=== PATIENT | male | born 1945 | race Caucasian/White ===

== ENCOUNTER → 2016-06-08 | Outpatient (CLI) | payer MEDICARE ==
[~2016-06-08] MED LIST: ALENDRONATE PO; ASP81TEC PO; CALC-731 PO; CATHETER FLUSH 10 ML SYR IV PRN; DIGO250T PO; DILT120T11 PO; DILT240C PO; GLUC500C2 PO; LISI1TAB PO; OMEG1CAP51 PO; OMEP20TA2 PO; POTA10CA43 PO; PRAV80TA2 PO; PRV20T PO; REGADENOSON 0.4 MG/5 ML SYR (LEXISCAN) IV ONE; WRF10T PO; WRF5T PO; [UNRECOGNIZED DRUG - CODE] PO; [UNRECOGNIZED DRUG - OTHER] OU; meTOprolol 5 MG/5 ML (LOPRESSOR) VIAL IV ONE; meTOprolol 5 MG/5 ML (LOPRESSOR) VIAL ONE
[2016-06-08 13:01] VITALS: BP 127/90
[2016-06-08 13:19] VITALS: BP 156/114
[2016-06-08 13:21] VITALS: BP 129/85
--- NOTE | 2016-06-09 10:17 | STRESS TEST ---
DATE OF SERVICE: RESTING AND POST REGADENOSON TECHNETIUM-99M TETROFOSMIN SPECT CT IMAGING DATE OF PROCEDURE: 06/08/2016. ORDERING PHYSICIAN: Dr. Vilchis. PRIMARY PHYSICIAN: Dr. Cruz. CLINICAL DIAGNOSES: Coronary artery disease, atrial fibrillation. Baseline images were carried out after injection of 10.21 mCi of technetium-99m tetrofosmin. This was followed by 0.4 mg of regadenoson and 28.9 mCi of technetium-99m tetrofosmin for stress imaging. The electrocardiogram showed atrial fibrillation with a somewhat rapid ventricular response throughout the study. He noted mild shortness of breath following regadenoson infusion, which resolved in a few minutes. Overall, he tolerated the procedure well. Review of images addressed following stress does not indicate any distant perfusion defects consistent with significant myocardial ischemia or infarction. Gated images show mild global hypokinesis. Left ventricular ejection fraction is calculated to be 41%. Left ventricular end-diastolic volume is 56 mL. CONCLUSIONS: 1. No evidence of any significant myocardial ischemia or infarction on the study. 2. Normal left ventricular cavity size. 3. Mild global hypokinesis. 4. Left ventricular ejection fraction is calculated to be 41%. 5. The patient was in atrial fibrillation with a somewhat rapid ventricular response throughout the study. Job ID: [id number] DocumentID: [id number] Dictated Date: 06/09/2016 09:02:01 Child Therapist Date: 06/09/2016 09:26:22 Dictated By: ANTHONY VILCHIS MD, MA, FACP, FACC,
== END ==
LOC: CARD 10:59
PROVIDERS: ATTEND Internal Medicine Cardiovascular Disease
DX: I25.10 Atherosclerotic heart disease of native coronary artery without angina pectoris (principal); I48.2 Chronic atrial fibrillation; I10 Essential (primary) hypertension; I65.23 Occlusion and stenosis of bilateral carotid arteries
CPT/HCPCS: 78452; 93017

== ENCOUNTER → 2016-10-01 | Outpatient (CLI) | payer MEDICARE ==
[~2016-10-01] MED LIST changes: -CATHETER FLUSH 10 ML SYR IV PRN; -REGADENOSON 0.4 MG/5 ML SYR (LEXISCAN) IV ONE; -meTOprolol 5 MG/5 ML (LOPRESSOR) VIAL IV ONE; -meTOprolol 5 MG/5 ML (LOPRESSOR) VIAL ONE
== END ==
LOC: CARD 11:20
PROVIDERS: ATTEND Internal Medicine Cardiovascular Disease
DX: I48.2 Chronic atrial fibrillation (principal); I42.0 Dilated cardiomyopathy; I25.10 Atherosclerotic heart disease of native coronary artery without angina pectoris; I65.23 Occlusion and stenosis of bilateral carotid arteries; I10 Essential (primary) hypertension
CPT/HCPCS: 93306

== ENCOUNTER → 2017-09-20 | Outpatient (RCR) | payer MEDICARE, OTHER | END | disposition home or self-care (01) | LOC: CARD 12:25 | PROVIDERS: ATTEND Internal Medicine Interventional Cardiology | DX: I48.2 Chronic atrial fibrillation (principal); R42 Dizziness and giddiness | CPT/HCPCS: 93225; 93226 ==

== ENCOUNTER 2017-10-17 13:30 | Outpatient (RCR) | payer MEDICARE, OTHER | END 2017-10-21 | disposition home or self-care (01) | LOC: CARD 13:30 | PROVIDERS: ATTEND Internal Medicine Interventional Cardiology | DX: I48.2 Chronic atrial fibrillation (principal); R42 Dizziness and giddiness | CPT/HCPCS: 93270 ==

== ENCOUNTER 2017-11-08 08:14 | Day surgery (SDC) | payer MEDICARE ==
[~2017-11-08] VITALS: Ht 177.8 cm; Wt 98.9 kg
--- OUTSIDE RECORDS SUMMARY | 2017-11-08 08:18 | XMS REPORT | CCD ---
Author Author BETTIE BARAHONA Unknown Address [address] [facility] [address] [place], [place] [id number] Care Team Providers Care Cash Register Servicer Name Role Phone JEFFREY HOSPITALISTJUSTEN MD Attphys JUNO BOURNE, TIKI Savage Prisurg S., BRITTA Salomon NASST F., MARIO NASST R., KAE Alexandra NASST B., CESILIA NASST S., ANITRA NASST C., CARLOS Claudio NASST M., RALPH NASST S., JIMENA NASST L., JAYSHREE Garcia NASST S., VALERIA NASST A., SONAL NASST K., JUSTEN NASST S., MIKE Jessica NASST Vital Signs Vital Sign Value Unit Date/Time Recent/Initial? Weight Measured 234.4 lbs 08/18/2015 04:38 Initial VS Height 70 in 08/18/2015 04:38 Initial VS BMI (Body Mass Index) 33.63 kg/m^2 08/18/2015 04:38 Initial VS BSA (Body Surface Area) 2.29 m^2 08/18/2015 04:38 Initial VS BP Systolic 126 mmHg 08/18/2015 04:38 Initial VS BP Diastolic 76 mmHg 08/18/2015 04:38 Initial VS Respiratory Rate 16 bpm 08/18/2015 04:38 Initial VS Heart Rate 107 bpm 08/18/2015 04:38 Initial VS O2 % BldC Oximetry 100 % 08/18/2015 04:38 Initial VS Body Temperature 96.3 degrees 08/18/2015 04:38 Initial VS BP Systolic 167 mmHg 08/20/2015 10:45 Most Recent VS BP Diastolic 86 mmHg 08/20/2015 10:45 Most Recent VS Respiratory Rate 18 bpm 08/20/2015 10:45 Most Recent VS Heart Rate 87 bpm 08/20/2015 10:45 Most Recent VS O2 % BldC Oximetry 96 % 08/20/2015 10:45 Most Recent VS Body Temperature 98.6 degrees 08/20/2015 10:45 Most Recent VS Allergies Unknown or Not Available. Procedures Procedure Code Procedure Type Date OT ADL TRAINING/POSITIONING EA 15MIN 752295352 SNOMED CT 08/20/2015 PT THERAPEUTIC EXERCISES [address] 2015 PT SOFT TISSUE MOBILIZATION-[address] PT THERAPEUTIC ACT. ONE ON ONE EA [address] 08/19/2015 PT EVALUATION 604143799 SNOMED CT 08/19/2015 PT THERAPEUTIC EXERCISES [address] 2015 PT GAIT TRAINING/STAIRS EA [address] 08/18 OT ADL TRAINING/POSITIONING EA 15MIN 939839566 SNOMED CT 08/19/2015 OT EVALUATION 029993588 SNOMED CT 08/19/2015 CX CHEST [address] 08/18/2015 KNEE [address] 08/17/[address] 08/20/2015 RENAL FUNCTION PANEL 430058014 SNOMED CT 08/20/2015 CBC W/ AUTO DIFF (RFLX MAN DIFF IF IND) 3621478 SNOMED CT 08/20/[address] 08/19/2015 BASIC METABOLIC PANEL 412947421 SNOMED CT 08/19/2015 CBC W/ AUTO DIFF (RFLX MAN DIFF IF IND) 5540143 SNOMED CT 08/19/[address] 08/18/[address] 08/18/2015 LACTIC ACID 8995707 SNOMED CT 08/18/2015 TROPONIN-I ADV 255325377 SNOMED CT 08/18/2015 COMPREHENSIVE METABOLIC PANEL 647876788 SNOMED CT 2015 CBC W/ AUTO DIFF (RFLX MAN DIFF IF IND) 7005496 SNOMED CT 08/18/[address] 08/18/2015 ^CBC W/AUTO DIFF 8345842 SNOMED CT 08/20/2015 ^CBC W/AUTO DIFF 7549324 SNOMED CT 08/19/2015 ^CBC W/AUTO DIFF 9581356 SNOMED CT 08/18/2015 History of Immunizations Immunization Code Date Td (adult), adsorbed 09 05/05/2006 Td (adult), adsorbed 09 12/04/2012 IPV 10 05/09/2006 influenza, split (incl. purified surface antigen) 15 02/08/2003 influenza, split (incl. 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 Chronic atrial fibrillation 314671570 08/18/2015 Active Results BASIC METABOLIC PANEL - Collect Date/Time: 08/19/2015 06:40 Test Name Code Test Result Test Units Test Ref Range GLUCOSE 2345-7 98 MG/DL L=70 H=100 SODIUM 2951-2 140 MEQ/L L=135 H=148 POTASSIUM 2823-3 3.8 MEQ/L L=3.5 H=5.3 CHLORIDE 2075-0 108 MEQ/L L=96 H=110 CO2 2028-9 25 MEQ/L L=22 H=29 BUN 3094-0 12 MG/DL L=8 H=22 CREATININE 2160-0 0.9 MG/DL L=0.6 H=1.6 CALCIUM 09611-5 8.3 MG/DL L=8.2 H=10.6 AGE 70 yrs GFR NonAA 83 GFR AA 101 eGFR >60 N/A eGFR AA* >60 N/A COMPREHENSIVE METABOLIC PANEL - Collect Date/Time: 08/18/2015 00:15 Test Name Code Test Result Test Units Test Ref Range GLUCOSE 2345-7 100 MG/DL L=70 H=100 SODIUM 2951-2 138 MEQ/L L=135 H=148 POTASSIUM 2823-3 4.3 MEQ/L L=3.5 H=5.3 CHLORIDE 2075-0 104 MEQ/L L=96 H=110 CO2 2028-9 22 MEQ/L L=22 H=29 BUN 3094-0 14 MG/DL L=8 H=22 CREATININE 2160-0 1.0 MG/DL L=0.6 H=1.6 SGOT/AST 1920-8 16 IU/L L=10 H=40 SGPT/ALT 1742-6 23 IU/L L=8 H=54 ALK PHOS 6768-6 64 IU/L L=35 H=115 TOTAL PROTEIN 2885-2 6.0 G/DL L=5.5 H=8.5 ALBUMIN 1751-7 4.2 G/DL L=3.1 H=5.4 TOTAL BILI 1975-2 1.0 MG/DL L=0.0 H=1.5 CALCIUM 12359-5 9.1 MG/DL L=8.2 H=10.6 AGE 70 yrs GFR NonAA 73 GFR AA 88 eGFR >60 N/A eGFR AA* >60 N/A CPK - Collect Date/Time: 08/18/2015 17:20 Test Name Code Test Result Test Units Test Ref Range CPK 2157-6 195 IU/L L=0 H=235 RENAL FUNCTION PANEL - Collect Date/Time: 08/20/2015 06:20 Test Name Code Test Result Test Units Test Ref Range GLUCOSE 2345-7 95 MG/DL L=70 H=100 SODIUM 2951-2 138 MEQ/L L=135 H=148 POTASSIUM 2823-3 4.2 MEQ/L L=3.5 H=5.3 CHLORIDE 2075-0 104 MEQ/L L=96 H=110 CO2 2028-9 25 MEQ/L L=22 H=29 BUN 3094-0 11 MG/DL L=8 H=22 CREATININE 2160-0 0.9 MG/DL L=0.6 H=1.6 ALBUMIN 1751-7 3.6 G/DL L=3.1 H=5.4 CALCIUM 32523-7 9.0 MG/DL L=8.2 H=10.6 PHOSPHORUS 2777-1 3.6 MG/DL L=2.5 H=4.5 AGE 70 yrs GFR NonAA 83 GFR AA 101 eGFR >60 N/A eGFR AA* >60 N/A CBC W/ AUTO DIFF (RFLX MAN DIFF IF IND) - Collect Date/Time: 08/20/2015 06:20 Test Name Code Test Result Test Units Test Ref Range WBC 62807-4 8.7 TH/CMM L=4.5 H=10.8 RBC 789-8 3.92 ML/CMM L=4.70 H=6.10 HGB 718-7 11.8 G/DL L=14.0 H=18.0 HCT 4544-3 37.1 % L=42.0 H=52.0 MCV 95 FL L=81 H=99 MCH 30.1 PG L=27.0 H=33.0 MCHC 31.8 G/DL L=31.0 H=36.0 RDW SD 48 FL L=36 H=50 RDW CV 13.9 % L=0.0 H=14.8 MPV 10.8 FL L=9.3 H=12.5 PLT 777-3 146 TH/CMM L=130 H=440 NRBC# 0.00 TH/CMM L=0.00 H=0.00 NRBC% 0.0 /100WBC L=0.0 H=2.0 %NEUT 70.6 % %LYMP 19.7 % %MONO 7.7 % %EOS 1.4 % %BASO 0.3 % #NEUT 6.15 TH/CMM L=2.10 H=8.20 #LYMP 1.72 TH/CMM L=0.90 H=5.20 #MONO 0.67 TH/CMM L=0.16 H=1.00 #EOS 0.12 TH/CMM L=0.00 H=0.80 #BASO 0.03 TH/CMM L=0.00 H=0.20 MANUAL DIFF NOT IND N/A CBC W/ AUTO DIFF (RFLX MAN DIFF IF IND) - Collect Date/Time: 08/19/2015 06:40 Test Name Code Test Result Test Units Test Ref Range WBC 31648-0 10.8 TH/CMM L=4.5 H=10.8 RBC 789-8 3.88 ML/CMM L=4.70 H=6.10 HGB 718-7 11.9 G/DL L=14.0 H=18.0 HCT 4544-3 37.1 % L=42.0 H=52.0 MCV 96 FL L=81 H=99 MCH 30.7 PG L=27.0 H=33.0 MCHC 32.1 G/DL L=31.0 H=36.0 RDW SD 48 FL L=36 H=50 RDW CV 13.9 % L=0.0 H=14.8 MPV 11.4 FL L=9.3 H=12.5 PLT 777-3 142 TH/CMM L=130 H=440 NRBC# 0.00 TH/CMM L=0.00 H=0.00 NRBC% 0.0 /100WBC L=0.0 H=2.0 %NEUT 77.3 % %LYMP 13.9 % %MONO 7.2 % %EOS 0.9 % %BASO 0.3 % #NEUT 8.33 TH/CMM L=2.10 H=8.20 #LYMP 1.50 TH/CMM L=0.90 H=5.20 #MONO 0.78 TH/CMM L=0.16 H=1.00 #EOS 0.10 TH/CMM L=0.00 H=0.80 #BASO 0.03 TH/CMM L=0.00 H=0.20 MANUAL DIFF NOT IND N/A CBC W/ AUTO DIFF (RFLX MAN DIFF IF IND) - Collect Date/Time: 08/18/2015 00:15 Test Name Code Test Result Test Units Test Ref Range WBC 69249-5 11.3 TH/CMM L=4.5 H=10.8 RBC 789-8 4.81 ML/CMM L=4.70 H=6.10 HGB 718-7 14.7 G/DL L=14.0 H=18.0 HCT 4544-3 45.1 % L=42.0 H=52.0 MCV 94 FL L=81 H=99 MCH 30.6 PG L=27.0 H=33.0 MCHC 32.6 G/DL L=31.0 H=36.0 RDW SD 46 FL L=36 H=50 RDW CV 13.6 % L=0.0 H=14.8 MPV 11.1 FL L=9.3 H=12.5 PLT 777-3 164 TH/CMM L=130 H=440 NRBC# 0.00 TH/CMM L=0.00 H=0.00 NRBC% 0.0 /100WBC L=0.0 H=2.0 %NEUT 75.6 % %LYMP 16.9 % %MONO 6.0 % %EOS 0.7 % %BASO 0.4 % #NEUT 8.50 TH/CMM L=2.10 H=8.20 #LYMP 1.90 TH/CMM L=0.90 H=5.20 #MONO 0.68 TH/CMM L=0.16 H=1.00 #EOS 0.08 TH/CMM L=0.00 H=0.80 #BASO 0.05 TH/CMM L=0.00 H=0.20 MANUAL DIFF NOT IND N/A PROTIME - Collect Date/Time: 08/20/2015 06:20 Test Name Code Test Result Test Units Test Ref Range PROTIME 81148-7 11.3 SEC L=9.9 H=11.9 INR 1.0 PROTIME - Collect Date/Time: 08/19/2015 06:40 Test Name Code Test Result Test Units Test Ref Range PROTIME 04888-7 16.7 SEC L=9.9 H=11.9 INR 1.5 PROTIME - Collect Date/Time: 08/18/2015 00:15 Test Name Code Test Result Test Units Test Ref Range PROTIME 60408-5 51.0 SEC L=9.9 H=11.9 INR 4.6 BNP - Collect Date/Time: 08/18/2015 00:15 Test Name Code Test Result Test Units Test Ref Range BNP 09521-6 89 PG/ML L=0 H=100 TROPONIN-I ADV - Collect Date/Time: 08/18/2015 03:55 Test Name Code Test Result Test Units [place] [address]-9 <0.04 ng/mL L=0.04 H= 0.40 LACTIC ACID - Collect Date/Time: 08/18/2015 03:55 Test Name Code Test Result Test Units Test Ref Range LACTIC ACID 2524-7 2.2 mmol/L L=0.5 H=1.6 Active Medications Medications Administered During Visit Medication Dose Units Frequency Route Date/ Time of Last Dose OMEGA-3 FATTY ACIDS [FISH OIL] CAP 1000 MG TID PO 08/20/2015 07:55 TIMOLOL [TIMOPTIC] 0.5% OPHTH SOLN 1 BOTTLE BID BOTHEYES 08/20/2015 07:26 ASPIRIN [CHEWABLE] TAB : 81MG 81 MG DAILYM PO 08/18/2015 08:33 ATORVASTATIN [LIPITOR] TABLET : 20 MG 40 MG HS PO 08/19/2015 20:42 PANTOPRAZOLE [PROTONIX] TABLET : 40 MG 40 MG DAILY PO 08/20/2015 07:55 NS 1000 ML IV [PREDEFINED] (7983) CONT IV 08/18/2015 08:04 NORCO [HYDROCODONE/APAP] 5/325MG TAB 1 TAB PRN PO 08/19/2015 13:55 DILTIAZEM ER [CARDIZEM CD] CAP : 180 MG 360 MG DAILY PO 08/20/2015 07:55 PHYTONADIONE [VITAMIN K] TAB : 5 MG 5 MG X1 PO 08/18/2015 17:57 SHERRI-COLACE (NEW FORMULATION) TABLET 2 TAB BID PO 08/20/2015 07:55 WARFARIN [COUMADIN] TAB : 5 MG (PEACH) 2 TAB COUMADIN PO 08/19/2015 17:07 NORCO [HYDROCODONE/APAP] 5/325MG TAB 2 TAB PRN PO 08/20/2015 07:58 Encounters Encounter Diagnosis Diagnosis Code Start Date Orthostatic hypotension I951 08/18/2015 Social History Smoking Status Code Start Date End Date Never smoker [id number] Patient Decision Aids Unknown or Not Available. Discharge Instructions You were admitted to [facility] on 08/18/2015 03:59 with a principal diagnosis of Orthostatic hypotension You had the following tests done: BASIC METABOLIC PANEL BNP CBC W/ AUTO DIFF (RFLX MAN DIFF IF IND) CBC W/ AUTO DIFF (RFLX MAN DIFF IF IND) CBC W/ AUTO DIFF (RFLX MAN DIFF IF IND) COMPREHENSIVE METABOLIC PANEL CPK LACTIC ACID PROTIME PROTIME PROTIME RENAL FUNCTION PANEL TROPONIN-I ADV You were discharged from [facility] on 08/20/2015 13:50 Should you have any questions prior to discharge, please contact a member of your healthcare team. If you have left the hospital and have any questions, please contact your primary care physician. FOLLOW UP CARE - SEE YOUR PHYSICIAN: SEE DR. HAMPTON ON AT 11:[address] HUYNH ON 08/27/15 AT 10:00 PRIMARY CARE PHYSICIAN OR PRACTITIONER: John Huynh MD, [phone]. INSTRUCTIONS GIVEN BY (TYPE IN NAME AND DATE) HAM HUGHES RN INSTRUCTIONS GIVEN AND DISCHARGE TO: Patient. VOICES UNDERSTANDING OF INSTRUCTIONS: Yes. CONTACT PHYSICIAN IF YOU EXPERIENCE ANY: SHORTNESS OF AIR, CHEST PAIN, FEVER, COUGH, ALTERED MENTAL STATUS, INCREASED LEG PAIN/ SWELLING ACTIVITY INSTRUCTIONS(list limitations): UP WITH WALKER. HOME DIET: Regular. CONDITION AT DISMISSAL Stable. HOME MEDICATION INSTRUCTIONS: Take only the medications listed above.. HOME MEDS RETURNED TO PATIENT: N/A. FOLLOW-UP OUTPATIENT SERVICES: INDEPENDENT STRIDES TO FOLLOW PT AT HOME. PT TO HAVE INR ON 08/22/15. 08/26/15, 08/29/15 THEN PER CARDIOLOGY. SPECIAL INSTRUCTIONS: ICE TO LEG MUCH POSSIBLE. CHIEF COMPLAINT: LEFT KNEE PAIN. PT. COULD NO LONGER BARE WEIGHT. Chief Complaint and Reason For Visit Chief Complaint Date of Onset ORTHOSTATIC HYPOTENSION Function Status Unknown or Not Available. Plan of Care Unknown or Not Available. Referral/Transition of Care Unknown or Not Available.
--- OUTSIDE RECORDS SUMMARY | 2017-11-08 08:18 | XMS REPORT | CCD ---
Author Author JO ANN RUIZ Organization Unknown Address [address] [facility] [address] [place], [place] [id number] Care Team Providers Care Blueprint Machine Operator Name Role Phone GERARDO SILVA DO Attphys Vital Signs Vital Sign Value Unit Date/Time Recent/Initial? Weight Measured 222 lbs 04/14/2015 13:43 Initial VS Height 70 in 04/14/2015 13:43 Initial VS BMI (Body Mass Index) 31.85 kg/m^2 04/14/2015 13:43 Initial VS BSA (Body Surface Area) 2.23 m^2 04/14/2015 13:43 Initial VS Allergies Allergy Code Allergy Type Reaction Status No Known Drug Allergies 0 No known drug allergies Active Procedures Procedure Code Procedure Type Date Colonscopy not high risk ind G0121 CPT 04/21/[address] 04/21/2015 History of Immunizations Immunization Code Date Td (adult), adsorbed 09 05/05/2006 Td (adult), adsorbed 09 12/04/2012 IPV 10 05/09/2006 influenza, split (incl. purified surface antigen) 15 02/08/2003 influenza, split (incl. purified surface antigen) 15 11/29/2006 Hep A, adult 52 05/05/2006 Hep A, adult 52 11/07/2006 typhoid, ViCPs 101 05/09/2006 Novel [id number] 127 03/13/2009 Pneumococcal conjugate PCV 13 133 11/21/2013 Problems Unknown or Not Available. Results PROTIME - Collect Date/Time: 04/21/2015 06:45 Test Name Code Test Result Test Units Test Ref Range PROTIME 34908-1 14.1 SEC L=9.9 H=11.9 INR 1.3 Active Medications No Active Medications Medications Administered During Visit Unknown or Not Available. Encounters Encounter Diagnosis Diagnosis Code Start Date Personal history of colonic polyps V44387 04/21/2015 Social History Smoking Status Code Start Date End Date Never smoker [id number] Patient Decision Aids Patient Decision Aid EGD AND/OR COLONOSCOPY; AFTER THE PROCEDURE Discharge Instructions You were admitted to [facility] on 04/21/2015 with a principal diagnosis of Personal history of colonic polyps. You had the following procedures done: COLON CA SCRN NOT HI RSK IND You were discharged from [facility] on 04/21/2015. Should you have any questions prior to discharge, please contact a member of your healthcare team. If you have left the hospital and have any questions, please contact your primary care physician. Chief Complaint and Reason For Visit Chief Complaint Date of Onset GEN COLONOSCOPY Function Status Unknown or Not Available. Plan of Care Unknown or Not Available. Referral/Transition of Care Unknown or Not Available.
[2017-11-08] MEDS ORDERED: LIDOCAINE 1% INJ 20 ML 20 ML VIAL ONE (08:19)
--- OUTSIDE RECORDS SUMMARY | 2017-11-08 08:19 | XMS REPORT | CCD ---
Author Author MARISSA BANDA Organization Unknown Address [address] [facility] [address] [place], [place] [id number] Care Team Providers Care Deputy Chief Sheriff Name Role Phone JUNO BOURNE, TIKI Savage Attphys JACOB MCNAIR DO Prisurg Vital Signs Unknown or Not Available. Allergies Allergy Code Allergy Type Reaction Status MORPHINE 7052 Drug allergy Active Procedures Unknown or Not Available. History of Immunizations Immunization Code Date Td (adult), adsorbed 09 05/05/2006 Td (adult), adsorbed 09 12/04/2012 IPV 10 05/09/2006 influenza, split (incl. purified surface antigen) 15 02/08/2003 influenza, split (incl. 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 Active Medications Medication Code Dose Units Frequency Route Modification Start Date/Time Aspirin 81MG Oral Tablet 707698 81 MILLIGRAMS DAILY ORAL 08/20/2015 13:15 Prescription Detail 81 MILLIGRAMS ORAL DAILY Atorvastatin Calcium 40MG Oral Tablet 849395 40 MILLIGRAMS AT BEDTIME ORAL 08/20/2015 13:15 Prescription Detail 40 MILLIGRAMS ORAL AT BEDTIME CALCIUM CITRATE 630/500 0 1 TABLET FOUR TIMES A DAY ORAL 08/20/2015 13:15 Prescription Detail 1 TABLET ORAL FOUR TIMES A DAY Chondroitin/Glucosamine 1200MG-1500MG Oral Capsule 977591 1 EACH TWO TIMES A DAY ORAL 08/20/2015 13:15 Prescription Detail 1 EACH ORAL TWO TIMES A DAY HYDROcodone bitartrate-acetaminophen 5MG-325MG Oral Tablet 407821 1-2 TABLET NEEDED EVERY 6 HR BY MOUTH 08/20/2015 13:15 Prescription Detail 1-2 TABLET BY MOUTH NEEDED EVERY 6 HR Omeprazole 40MG Oral Capsule, Delayed Release 308890 20 MILLIGRAMS DAILY ORAL 08/20/2015 13:15 Prescription Detail 20 MILLIGRAMS ORAL DAILY Taztia XT 360MG Oral Capsule, Extended Release, 24 HR 606955 360 MILLIGRAMS DAILY ORAL 08/20/2015 13:15 Prescription Detail 360 MILLIGRAMS ORAL DAILY Warfarin Sod 5MG Oral Tablet 379275 2 TABLET DAILY ORAL 08/20/2015 13:15 Prescription Detail 2 TABLET ORAL DAILY Flax Seed Oil Natural 1000 MG Oral Capsule, Liquid Filled 877801 1 TABLET DAILY BY MOUTH 08/20/2015 13:14 Prescription Detail 1 TABLET BY MOUTH DAILY Warba-3 Fish Oil 1000 MG Oral Capsule, Liquid Filled 868536 1 TABLET DAILY BY MOUTH 08/20/2015 13:14 Prescription Detail 1 TABLET BY MOUTH DAILY Senna-Time S 50MG-8.6MG Oral Tablet 420447 2 EACH TWO TIMES A DAY BY MOUTH 08/20/2015 13:14 Prescription Detail 2 EACH BY MOUTH TWO TIMES A DAY- hold for loose stools Timolol Maleate 0.5% Ophthalmic Gel-Forming Solution 493339 1 TABLET DAILY BY MOUTH 08/20/2015 13:14 Prescription Detail 1 TABLET BY MOUTH DAILY Medications Administered During Visit Unknown or Not Available. Encounters Encounter Diagnosis Diagnosis Code Start Date Strain of muscle, fascia and tendon of the posterior muscle group at thigh level, left thigh, initial encounter [id number] 08/23/2015 Social History Smoking Status Code Start Date End Date Never smoker [id number] Patient Decision Aids Unknown or Not Available. Discharge Instructions You were admitted to [facility] on 08/23/2015 20:30 with a principal diagnosis of Strain of muscle, fascia and tendon of the posterior muscle group at thigh You were discharged from [facility] on 08/23/2015 21:15 Should you have any questions prior to discharge, please contact a member of your healthcare team. If you have left the hospital and have any questions, please contact your primary care physician. Chief Complaint and Reason For Visit Chief Complaint Date of Onset SWELLING LEG Function Status Unknown or Not Available. Referral/Transition of Care Unknown or Not Available.
--- OUTSIDE RECORDS SUMMARY | 2017-11-08 08:19 | XMS REPORT ---
Author Author Timothy Cruz [facility] Address [address] [place], [place] [id number] Care Team Providers [facility] [employer] Name Role Phone Timothy Cruz PCP Timothy Cruz PreferredProvider Allergies and Adverse Reactions Name Reaction Notes morphine Plan of Treatment Not available. Medications Active Name Start Date Estimated Completion Date SIG Comments omeprazole 20 mg oral capsule,delayed release(DR/EC) Fish Oil 300 mg oral capsule take 2 capsules by oral route once glucosamine sulfate 2KCl 1,000 mg oral tablet take 2 tablets by oral route calcium and citrate and vitamin d atorvastatin 40 mg oral tablet take 1 tablet (40 mg) by oral route once daily diltiazem HCl 360 mg oral capsule, extended release take 1 capsule (360 mg) by oral route once daily timolol maleate 0.5 % ophthalmic drops flaxseed oil 1,000 mg oral capsule take 1 capsule by oral route daily Zyrtec-D 5-120 mg oral tablet extended release 12 hr 05/02/2015 take 1 tablet by oral route every 12 hours diclofenac sodium 75 mg oral tablet,delayed release (DR/EC) 10/28/2015 take 1 tablet (75 mg) by oral route 2 times per day Tivorbex 40 mg oral capsule 02/05/2016 take 1 capsule (40 mg) by oral route 2 times per day carvedilol 6.25 mg oral tablet take 1 tablet (6.25 mg) by oral route 2 times per day with food diclofenac sodium 75 mg oral tablet,delayed release (DR/EC) 08/16/2016 TAKE ONE TABLET BY MOUTH TWICE DAILY Name Start Date Expiration Date SIG Comments Lisinopril Oral one daily econazole 1 % topical cream 05/04/2012 06/01/2012 apply to the affected and surrounding areas of skin by topical route once daily for 2 weeks Bactroban 2 % topical cream 09/22/2012 10/02/2012 apply a small amount to the affected area by topical route 3 times per day for 10 days pot-chloride 10 meq 11/06/2012 1 tablet daily amoxicillin 875 mg oral tablet 02/27/2013 03/13/2013 take 1 tablet (875 mg) by oral route every 12 hours for 7 days Zyrtec-D 5-120 mg oral tablet extended release 12 hr 07/20/2013 11/17/2013 take 1 tablet by oral route 2 times per day for 30 days naproxen 500 mg oral tablet 03/28/2014 take 1 tablet (500 mg) by oral route 2 times per day with food Restoril 15 mg oral capsule take 1 capsule (15 mg) by oral route once daily at bedtime as needed Ambien 10 mg oral tablet take 1 tablet (10 mg) by oral route once daily at bedtime for 30 days cyclobenzaprine 10 mg oral tablet 03/13/2015 take 1 tablet by oral route once a day (at bedtime) as needed Valium 5 mg oral tablet 08/04/2015 10/03/2015 take 1 tablet by oral route once a day (at bedtime) as needed for 30 days Amitiza 8 mcg oral capsule 08/26/2015 02/22/2016 take 1 capsule (8 mcg) by oral route 2 times per day with food and water for 30 days prednisone 20 mg oral tablet 03/30/2016 04/13/2016 take 1 tablet (20 mg) by oral route once daily for 14 days Xarelto 20 mg oral tablet 09/23/2016 01/21/2017 take 1 tablet (20 mg) by oral route once daily with the evening meal for 30 days econazole 1 % topical cream 04/25/2017 05/09/2017 apply to the affected and surrounding areas of skin by topical route once daily for 2 weeks Discontinued Name Start Date Discontinued Date SIG Comments pravatatin 11/06/2012 glucosamine hcl 11/06/2012 daily lisinopril-hydrochlorothiazide 20-12.5 mg oral tablet 04/15/2016 take 1 tablet by oral route once daily Coumadin 5 mg oral tablet 05/24/2017 take 1 tab. on Tue,Th and Sat. 2 tab all other days digoxin 250 mcg oral tablet 04/15/2016 take 1 tablet (250 mcg) by oral route once daily prednisone oral 05/07/2014 tramadol 50 mg oral tablet 11/27/2013 take 1 tablet by oral route As needed Ambien 10 mg oral tablet 02/06/2015 take 1 tablet (10 mg) by oral route once daily at bedtime hydrocodone-acetaminophen 5-325 mg oral tablet 08/26/2015 04/15/2016 take 1 tablet by oral route every 6 hours as needed for pain Movantik 25 mg oral tablet 08/26/2015 08/26/2015 take 1 tablet (25 mg) by oral route once daily in the morning for 7 days Flonase Allergy Relief 50 mcg/actuation nasal spray,suspension 10/16/201504/15 inhale 2 sprays (100 mcg) in each nostril by intranasal route once daily Levaquin 500 mg oral tablet 04/15/2016 take 1 tablet (500 mg) by oral route once daily for 7 days Mobic 15 mg oral tablet 01/06/2016 04/15/2016 take 1 tablet (15 mg) by oral route once daily diclofenac sodium 75 mg oral tablet,delayed release (DR/EC) 04/15/20162016 TAKE ONE TABLET BY MOUTH TWICE DAILY hydrocortisone 2.5 % topical cream 06/28/2016 09/14/2017 apply a thin layer to the affected area(s) by topical route 2 times per day Problem List Description Status Onset Hypertension Active Colonic Polyps, Personal History of Active Atrial fibrillation, chronic Active 05/06/2015 Allergic rhinitis, unspecified allergic rhinitis type Active 05/06/2015 Vital Signs Date Time BP-Sys(mm[Hg] BP-Jaylin(mm[Hg]) HR(bpm) RR(rpm) Temp WT HT HC BMI BSA BMI Percentile O2 Sat(%) 09/14/2017 9:06:00 AM 122 mmHg 84 mmHg 84 bpm 18 rpm 97.7 F 229.25 lbs 70 in 32.8936 kg/m 2.2662 m 98 % 09/01/2017 8:52:00 AM 122 mmHg 70 mmHg 72 bpm 97.7 F 233.125 lbs 70 in 33.45 kg/m2 2.29 m2 99 % 08/02/2017 8:29:00 AM 118 mmHg 70 mmHg 70 bpm 97.3 F 232.125 lbs 70 in 33.3061 kg/m 2.2804 m 98 % 07/27/2017 8:23:00 AM 128 mmHg 82 mmHg 89 bpm 20 rpm 97.7 F 231 lbs 70 in 33.14 kg/m2 2.27 m2 98 % 07/05/2017 8:42:00 AM 130 mmHg 80 mmHg 86 bpm 98.8 F 228.125 lbs 70 in 32.7322 kg/m 2.2607 m 98 % 05/24/2017 9:05:00 AM 122 mmHg 72 mmHg 118 bpm 96.6 F 229.125 lbs 70 in 32.88 kg/m2 2.27 m2 98 % 05/17/2017 10:03:00 AM 122 mmHg 80 mmHg 112 bpm 16 rpm 96 F 222.375 lbs 70 in 31.9072 kg/m 2.232 m 97 % 09/23/2016 2:03:00 PM 110 mmHg 72 mmHg 68 bpm 16 rpm 96.6 F 219 lbs 70 in 31.42 kg/m2 2.21 m2 97 % 08/04/2016 8:25:00 AM 122 mmHg 78 mmHg 100 bpm 16 rpm 96.6 F 216.375 lbs 70 in 31.0463 kg/m 2.2017 m 98 % 06/28/2016 2:12:00 PM 126 mmHg 84 mmHg 88 bpm 14 rpm 97.6 F 224.125 lbs 70 in 32.16 kg/m2 2.24 m2 98 % 03/26/2016 8:29:00 AM 134 mmHg 64 mmHg 88 bpm 18 rpm 96.7 F 238 lbs 70 in 34.1491 kg/m 2.3091 m 97 % 01/06/2016 8:35:00 AM 116 mmHg 72 mmHg 104 bpm 16 rpm 97.1 F 233 lbs 70 in 33.43 kg/m2 2.28 m2 97 % 11/28/2015 6:19:00 PM 128 mmHg 68 mmHg 81 bpm 14 rpm 96.6 F 231.5 lbs 70 in 33.2165 kg/m 2.2773 m 97 % 11/22/2015 9:08:00 AM 114 mmHg 80 mmHg 102 bpm 98.2 F 231 lbs 70 in 33.14 kg/m2 2.27 m2 98 % 10/28/2015 9:19:00 AM 130 mmHg 72 mmHg 132 bpm 18 rpm 97.4 F 231 lbs 70 in 33.1447 kg/m 2.2749 m 98 % 08/21/2015 10:26:00 AM 130 mmHg 88 mmHg 100 bpm 18 rpm 98.9 F 230 lbs 70 in 33.00 kg/m2 2.27 m2 98 % 08/16/2015 1:53:00 PM 132 mmHg 74 mmHg 79 bpm 18 rpm 98 F 230 lbs 70 in 33.0012 kg/m 2.2699 m 98 % 08/04/2015 3:46:00 PM 110 mmHg 62 mmHg 76 bpm 18 rpm 97.8 F 229 lbs 70 in 32.86 kg/m2 2.26 m2 98 % 05/06/2015 1:33:00 PM 122 mmHg 78 mmHg 83 bpm 20 rpm 97.2 F 228 lbs 70 in 32.7143 kg/m 2.26 m 97 % 04/18/2015 6:31:00 PM 122 mmHg 60 mmHg 99 bpm 96.7 F 227 lbs 70 in 32.57 kg/m2 2.26 m2 96 % 03/28/2015 11:58:00 AM 120 mmHg 78 mmHg 100 bpm 20 rpm 97.8 F 226 lbs 70 in 32.4273 kg/m 2.2501 m 03/13/2015 8:27:00 AM 112 mmHg 76 mmHg 80 bpm 18 rpm 97.2 F 227 lbs 70 in 32.57 kg/m2 2.26 m2 96 % 10/22/2014 1:42:00 PM 100 mmHg 64 mmHg 80 bpm 18 rpm 97.9 F 224 lbs 70 in 32.1403 kg/m 2.2401 m 08/16/2014 2:19:00 PM 108 mmHg 66 mmHg 84 bpm 18 rpm 97.9 F 229 lbs 71 in 31.94 kg/m2 2.28 m2 98 % 07/04/2014 10:18:00 AM 110 mmHg 70 mmHg 72 bpm 18 rpm 98.1 F 237 lbs 70 in 34.0056 kg/m 2.3042 m 05/07/2014 10:21:00 AM 122 mmHg 72 mmHg 74 bpm 18 rpm 97.7 F 229.5 lbs 70 in 32.93 kg/m2 2.27 m2 98 % 10/30/2013 2:33:00 PM 132 mmHg 80 mmHg 80 bpm 20 rpm 97.5 F 227 lbs 70 in 32.5708 kg/m 2.2551 m 10/28/2013 2:25:00 PM 98 mmHg 62 mmHg 88 bpm 18 rpm 97.3 F 226.062 lbs 70 in 32.44 kg/m2 2.25 m2 99 % 07/20/2013 10:53:00 AM 100 mmHg 64 mmHg 96 bpm 18 rpm 98.1 F 227 lbs 71 in 31.6597 kg/m 2.2711 m 02/27/2013 8:40:00 AM 108 mmHg 84 mmHg 88 bpm 18 rpm 97.4 F 236.5 lbs 71 in 32.98 kg/m2 2.32 m2 98 % 12/04/2012 8:13:00 AM 122 mmHg 84 mmHg 88 bpm 18 rpm 98.4 F 225 lbs 71 in 31.3808 kg/m 2.2611 m 12/01/2012 8:22:00 AM 117 mmHg 80 mmHg 75 bpm 16 rpm 97.8 F 227 lbs 71 in 31.66 kg/m2 2.27 m2 98 % 11/06/2012 8:25:00 AM 128 mmHg 74 mmHg 80 bpm 18 rpm 97.7 F 221 lbs 71 in 30.8229 kg/m 2.2409 m 09/25/2012 9:23:00 AM 115 mmHg 65 mmHg 72 bpm 18 rpm 98 F 224 lbs 71 in 31.24 kg/m2 2.26 m2 97 % 09/22/2012 5:43:00 PM 122 mmHg 68 mmHg 60 bpm 18 rpm 97.7 F 219 lbs 71 in 30.544 kg/m 2.2307 m 98 % 05/04/2012 8:32:00 AM 110 mmHg 72 mmHg 82 bpm 18 rpm 98.4 F 219 lbs 71 in 30.54 kg/m2 2.23 m2 04/26/2012 3:13:00 PM 74 bpm 18 rpm 97.4 F 221 lbs 98 % 07/16/2009 1:43:00 PM 140 mmHg 60 mmHg 72 bpm 18 rpm 98.2 F 06/10/2009 2:58:00 PM 134 mmHg 60 mmHg 80 bpm 18 rpm 98.6 F 226 lbs Social History Name Description Comments Alcohol Use - Occasional Tobacco Former smoker History of Procedures Date Ordered Description Order Status 03/13/2015 12:00 AM Decadron, Per [address] [facility]# [address]-00 Reviewed 03/13/2015 12:00 AM Depo-Medrol, Per [address] [facility]#[address]-96 Reviewed 03/28/2015 12:00 AM SELF-MGMT EDUC & TRAIN 1 PT Reviewed 03/28/2015 12:00 AM Screening, Colonoscopy,Colorectal Reviewed 03/31/2015 12:00 AM ELECTROCARDIOGRAM COMPLETE Reviewed 03/31/2015 12:00 AM CHEST X-RAY 2VW FRONTAL&LATL Reviewed 05/06/2015 12:00 AM Decadron, Per [address] [facility]# [address]-16 Reviewed 05/06/2015 12:00 AM Depo-Medrol 40mg Reviewed 05/06/2015 12:00 AM PROTHROMBIN TIME Reviewed 08/04/2015 12:00 AM Decadron, Per [address] [facility]# [address]-83 Reviewed 08/04/2015 12:00 AM Depo-Medrol, Per [address] [facility]#[address]-05 Reviewed 08/21/2015 12:00 AM MRI LOWER EXTREMITY W/O DYE Reviewed 10/28/2015 12:00 AM Toradol [address] [facility]#1147-6627-59 Reviewed 10/28/2015 12:00 AM INFLUENZA VAC 4 VALENT PRSRV FREE 3 YRS PLUS IM Reviewed 08/04/2016 12:00 AM Decadron 8mg Injection Reviewed 08/04/2016 12:00 AM Depo-Medrol 80mg Injection Reviewed 05/17/2017 12:00 AM COMPLETE CBC W/AUTO DIFF WBC Returned 05/17/2017 12:00 AM COMPREHEN METABOLIC PANEL Returned 05/17/2017 12:00 AM LIPID PANEL Returned 05/17/2017 12:00 AM PROTHROMBIN TIME Returned 05/04/2012 12:00 AM US EXAM OF HEAD AND NECK Reviewed 09/22/2012 12:00 AM REMOVE IMPACTED EAR WAX UNI Reviewed 11/06/2012 12:00 AM Flu Injection [address] Years And [address] [facility]# [address]-39 RHC Reviewed 12/04/2012 12:00 AM TD VACCINE NO PRSRV 7/> IM Reviewed 10/28/2013 12:00 AM TDAP VACCINE 7 YRS/> IM Reviewed 10/28/2013 12:00 AM THER/PROPH/DIAG INJ SC/IM Reviewed 11/21/2013 12:00 AM PNEUMOCOCCAL POLYSAC VACCINE 23-V 2 YRS/>SUBQ/IM Reviewed 11/28/2013 12:00 AM INFLUENZA VAC 4 VALENT PRSRV FREE 3 YRS PLUS IM Reviewed 05/07/2014 12:00 AM THER/PROPH/DIAG INJ SC/IM Reviewed 05/07/2014 12:00 AM Decadron, Per [address] [facility]# [address]-19 Reviewed 05/07/2014 12:00 AM Depo-Medrol, Per [address] [facility]#1460-5438-54 Reviewed 05/07/2014 12:00 AM REMOVE IMPACTED EAR WAX UNI Reviewed 07/04/2014 12:00 AM Decadron [address] [facility]# [address]-54 Reviewed 07/04/2014 12:00 AM Depo-Medrol [address] [facility]#[address]-38 Reviewed 08/16/2014 12:00 AM REMOVE IMPACTED EAR WAX UNI Reviewed Results Summary Date and Description Results 04/16/2015 6:50 AM PROTIME 20.50 secsINR 1.9 05/06/2015 2:05 PM PROTIME 17.20 secsINR 1.6 History Of Immunizations Name Date Admin Mfg Name Mfg Code Trade Name Lot# Route Inj Vis Given Vis Pub CVX Influenza 11/06/2012 sanofi pasteur PMC FLUZONE [id number] Intramuscular Left Deltoid 11/06/2012 08/23/2011 141 Td 12/04/2012 sanofi pasteur PMC Tenivac [id number] Intramuscular Left Deltoid 12/04/2012 03/16/2011 113 Tdap 10/28/2013 sanofi pasteur PMC ADACEL [id number] Intramuscular Right Upper Arm 10/28/2013 07/21/2012 115 X 11/21/2013 Fmnny-Exmafg-Kbupmqk-Praxis WAL PREVNAR 13 [id number] Intramuscular Left Deltoid 11/22/2013 2012 33 Influenza 10/28/2015 sanofi pasteur PMC FLUZONE UI [id number] Intramuscular Right Deltoid 10/28/2015 09/27/2014 141 Pneumococcal 11/01/2016 [employer] MSD PNEUMOVAX 23 N [id number] Intramuscular Right Arm 12/02/2016 04/16/2014 33 Influenza 11/01/2016 sanofi pasteur PMC FLUZONE-HIGH DOSE UI 835 AA Intradermal Left Arm 11/01/2016 09/27/2014 135 History of Past Illness Name Date of Onset Comments Hypertension Special screening Colon Jun 10 2009 2:59PM Colonic Polyps, Personal History of Benign colon polyp Jul 16 2009 1:50PM Atrial fibrillation, chronic 05/06/2015 Allergic rhinitis, unspecified allergic rhinitis type 05/06/2015 Lower Limb Open Wound Apr 26 2012 3:16PM Hypertension May 04 2012 8:40AM Atrial Fibrillation May 04 2012 8:40AM Pseudofolliculitis barbae Sep 22 2012 5:45PM Impacted Cerumen-Bilaterally Sep 22 2012 5:45PM Atrial Fibrillation Sep 22 2012 5:45PM Hypertension Sep 25 2012 9:27AM Hypertension Nov 06 2012 8:37AM Atrial Fibrillation Nov 06 2012 8:37AM Rhinitis, Allergic Nov 06 2012 8:37AM Foreign body (splinter)offinger infected Dec 01 2012 8:25AM Abrasion Of Finger(s) Dec 04 2012 8:18AM Allergic rhinitis; due to other allergen Jan 08 2013 1:17PM Pain in joint; shoulder region, Left Feb 27 2013 8:46AM Other specified diseases of hair and hair follicles Feb 27 2013 8:46AM Actinic Keratosis Jul 20 2013 10:59AM Actinic Keratosis Jul 20 2013 11:22AM Rhinitis, Allergic Jul 20 2013 10:59AM Thumb laceration, left, initial encounter Oct 28 2013 2:28PM Keratosis, seborrheic Oct 30 2013 2:40PM Keratosis, seborrheic Oct 30 2013 3:18PM Pneumococcus Nov 23 2013 1:16PM Flu Nov 28 2013 2:04PM Allergic rhinitis May 07 2014 10:23AM Cerumen impaction May 07 2014 10:23AM Hypertension Jul 04 2014 10:22AM Seasonal allergies Jul 04 2014 10:22AM Tick bite Aug 16 2014 2:22PM Impacted Cerumen Aug 16 2014 3:28PM Hypertension Oct 22 2014 1:52PM Actinic keratosis Oct 22 2014 2:12PM Lumbar strain, initial encounter Mar 13 2015 8:34AM Preop examination Mar 28 2015 11:52AM Personal history of colonic polyps Mar 28 2015 11:52AM Preop examination Mar 31 2015 12:28PM Cerumen debris on tympanic membrane of both ears Apr 18 2015 6:37PM Impacted cerumen of right ear Apr 18 2015 6:37PM Allergic rhinitis, unspecified allergic rhinitis type May 06 2015 1:35PM Atrial fibrillation, chronic May 06 2015 1:35PM Neck pain Aug 04 2015 3:52PM Muscle tear Aug 16 2015 1:55PM Muscle tear Aug 21 2015 10:37AM Leg pain, left Aug 21 2015 10:37AM Chronic midline low back pain without sciatica Oct 28 2015 9:21AM Bilateral impacted cerumen Oct 28 2015 9:21AM Irritation of external auditory canal, left Nov 22 2015 9:11AM Middle ear effusion, bilateral Nov 28 2015 6:22PM Atrial Fibrillation Jan 06 2016 8:39AM Spinal stenosis at L4-L5 level Jan 06 2016 8:39AM Eustachian tube disorder, right Mar 26 2016 8:36AM Atrial Fibrillation Jun 28 2016 2:16PM Contact dermatitis Jun 28 2016 2:16PM Spinal stenosis at L4-L5 level Aug 04 2016 8:29AM Atrial Fibrillation Sep 23 2016 2:08PM Wart Sep 23 2016 2:33PM Low Back Pain May 17 2017 10:05AM CAD (coronary artery disease) May 17 2017 10:05AM Hip flexor tendon tightness, left May 24 2017 9:15AM Groin strain, left, initial encounter May 24 2017 9:15AM Hip flexor tendon tightness, left Jul 05 2017 8:45AM Groin strain, left, initial encounter Jul 05 2017 8:45AM Right knee DJD Jul 05 2017 8:45AM Foot drop, right Jul 05 2017 8:45AM Hip flexor tendon tightness, left Aug 02 2017 8:35AM Groin strain, left, initial encounter Aug 02 2017 8:35AM Right knee DJD Aug 02 2017 8:35AM Foot drop, right Aug 02 2017 8:35AM Foreign body in skin of finger, initial encounter Jul 27 2017 8:24AM Hip flexor tendon tightness, left Sep 01 2017 8:57AM Groin strain, left, initial encounter Sep 01 2017 8:57AM Right knee DJD Sep 01 2017 8:57AM Foot drop, right Sep 01 2017 8:57AM Contact dermatitis Sep 14 2017 9:07AM Payers Insurance Name Company Name Plan Name Plan Number Policy Number Policy Group Number Start Date [facility] [id number] N/A Medicare Part A Medicare Part A [id number] N/A Medicare Part B Medicare Secondary [id number] N/A Medicare Part B Medicare Of [place] [id number] N/A Medicare Part A Medicare - Lab/Xray [id number] N/A [facility] [id number] N/A History of Encounters Visit Date Visit Type Provider 09/14/2017 Office visit Timothy Cruz MD 09/01/2017 Office visit Osei Mercado DO 08/02/2017 Office visit Oseicameron Mercado DO 07/27/2017 Office visit Shira Joyce MATERIALS SCHEDULER 07/05/2017 Office visit Oseicameron Mercado DO 05/24/2017 Office visit Osei Mercado DO 05/17/2017 Office visit Timothy Cruz MD 09/23/2016 Office visit Timothy Cruz MD 08/04/2016 Office visit Timothy Cruz MD 06/28/2016 Office visit Timothy Cruz MD 03/26/2016 Office visit Timothy Cruz MD 01/06/2016 Office visit Timothy Cruz MD 11/28/2015 Office visit Araseli Ochoa MATERIALS SCHEDULER 11/22/2015 Office visit Phillip Kimbrough PA-C 10/28/2015 Office visit Shira Joyce MATERIALS SCHEDULER 08/21/2015 Office visit Timothy Cruz MD 08/18/2015 Hospital Isabel Townsend MD 08/18/2015 Hospital Lalitha Bender MD 08/16/2015 Office visit Phillip Kimbrough PA-C 08/04/2015 Office visit Timothy Cruz MD 05/06/2015 Office visit Shira Joyce MATERIALS SCHEDULER 04/21/2015 Hospital Stevan Frey DO 04/18/2015 Office visit Phillip Kimbrough PA-C 03/28/2015 Office visit Stevan Frey DO 03/13/2015 Office visit Timothy Cruz MD 10/22/2014 Office visit Timothy Cruz MD 08/16/2014 Office visit Willy Gordillo MATERIALS SCHEDULER 07/04/2014 Office visit Timothy Cruz MD 05/07/2014 Office visit 05/07/2014 Office visit Shira Joyce MATERIALS SCHEDULER 05/06/2014 Voided Timothy Cruz MD 11/21/2013 Nurse visit Timothy Cruz MD 10/30/2013 Office visit Timothy Cruz MD 10/28/2013 Office visit Felisa Arita MATERIALS SCHEDULER 07/20/2013 Office visit Timothy Cruz MD 05/10/2013 Hospital Lalitha Bender MD 02/27/2013 Office visit Timothy Cruz MD 01/03/2013 Nurse visit Timothy Cruz MD 12/04/2012 Office visit Timothy Cruz MD 12/01/2012 Office visit Timothy Cruz MD 11/06/2012 Office visit Timothy Cruz MD 09/25/2012 Office visit Timothy Cruz MD 09/22/2012 Office visit Phillip Kimbrough PA-C 05/04/2012 Office visit Timothy Cruz MD 04/26/2012 Office visit Darby Moss APRN 07/12/2011 [facility] Lalitha Bender MD 07/12/2011 [facility] Huang Abdi MD 07/16/2009 Office visit Huang Abdi MD 07/10/2009 Surgery Huang Abdi MD 06/10/2009 Surgery Huang Abdi MD
--- OUTSIDE RECORDS SUMMARY | 2017-11-08 08:20 | XMS REPORT ---
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 Name Role Phone Osei Mercado PCP Timothy Cruz PreferredProvider Allergies and Adverse [...] by oral route 2 times per day hydrocortisone 2.5 % topical cream 06/28/2016 apply a thin layer to the affected area(s) by topical route 2 times per day carvedilol 6.25 [...] TAKE ONE TABLET BY MOUTH TWICE DAILY Problem List Description Status Onset Hypertension Active Colonic Polyps, Personal History of Active Atrial fibrillation, chronic Active 05/06/2015 Allergic rhinitis, unspecified allergic rhinitis type Active 05/06/2015 Vital Signs Date Time BP-Sys(mm[Hg] BP-Jaylin(mm[Hg]) HR(bpm) RR(rpm) Temp WT HT HC BMI BSA BMI Percentile O2 Sat(%) 09/01/2017 8:52:00 AM 122 mmHg 70 mmHg 72 bpm 97.7 F 233.125 lbs 70 in 33.4496 kg/m 2.2853 m 99 % 08/02/2017 8:29:00 AM 118 mmHg 70 mmHg 70 bpm 97.3 F 232.125 lbs 70 in 33.31 kg/m2 2.28 m2 98 % 07/27/2017 8:23:00 AM 128 mmHg 82 mmHg 89 bpm 20 rpm 97.7 F 231 lbs 70 in 33.1447 kg/m 2.2749 m 98 % 07/05/2017 8:42:00 AM 130 mmHg 80 mmHg 86 bpm 98.8 F 228.125 lbs 70 in 32.73 kg/m2 2.26 m2 98 % 05/24/2017 9:05:00 AM 122 mmHg [...] 03/13/2015 12:00 AM Decadron, Per 1 Mg [place]# [address]-32 Reviewed 03/13/2015 12:00 AM Depo-Medrol, Per 80 Mg ND#[address]-78 Reviewed 03/28/2015 12:00 AM SELF-MGMT EDUC & TRAIN 1 PT Reviewed 03/28/2015 12:00 AM Screening, Colonoscopy,Colorectal Reviewed 03/31/2015 12:00 AM ELECTROCARDIOGRAM COMPLETE Reviewed 03/31/2015 12:00 AM CHEST X-RAY 2VW FRONTAL&LATL Reviewed 05/06/2015 12:00 AM Decadron, Per 1 Mg N[facility]# [address]-44 Reviewed 05/06/2015 12:00 AM Depo-Medrol 40mg Reviewed 05/06/2015 12:00 AM PROTHROMBIN TIME Reviewed 08/04/2015 12:00 AM Decadron, Per 1 Mg [facility]# [address]-16 Reviewed 08/04/2015 12:00 AM Depo-Medrol, Per 80 Mg [facility]#[address]-65 Reviewed 08/21/2015 12:00 AM MRI LOWER EXTREMITY W/O DYE Reviewed 10/28/2015 12:00 AM Toradol 60 Mg [facility]#2583-9420-39 Reviewed 10/28/2015 12:00 AM INFLUENZA VAC 4 [...] AM Flu Injection 3 Years And Above [facility]# [address]-60 RHC Reviewed 12/04/2012 12:00 AM TD VACCINE [...] 05/07/2014 12:00 AM Decadron, Per 1 Mg [facility]# [address]-18 Reviewed 05/07/2014 12:00 AM Depo-Medrol, Per 80 Mg [facility]#5071-2313-17 Reviewed 05/07/2014 12:00 AM REMOVE IMPACTED EAR WAX UNI Reviewed 07/04/2014 12:00 AM Decadron 8 mg [facility]# [address]-26 Reviewed 07/04/2014 12:00 AM Depo-Medrol 80 mg [facility]#[address]-90 Reviewed 08/16/2014 12:00 AM REMOVE IMPACTED EAR WAX UNI Reviewed Results Summary Date and Description Results 04/16/2015 6:50 AM PROTIME 20.50 secsINR 1.9 05/06/2015 2:05 PM PROTIME 17.20 secsINR 1.6 History Of Immunizations Name Date Admin Mfg Name Mfg Code Trade Name Lot# Route Inj Vis Given Vis Pub CVX Influenza 11/06/2012 sanofi pasteur PMC FLUZONE [id number] Intramuscular Left Deltoid 11/06/2012 08/23/2011 141 Td 12/04/2012 sanofi pasteur PMC Tenivac [id number] Intramuscular Left Deltoid 12/04/2012 03/16/2011 113 Tdap 10/28/2013 sanofi pasteur PMC ADACEL [id number] Intramuscular Right Upper Arm 10/28/2013 07/21/2012 115 X 11/21/2013 Vwwuw-Orumwt-Gpfwhqb-Praxis WAL PREVNAR 13 [id number] Intramuscular Left Deltoid 11/22/2013 2012 33 Influenza 10/28/2015 sanofi pasteur PMC FLUZONE UI [id number] Intramuscular Right Deltoid 10/28/2015 09/27/2014 141 Pneumococcal 11/01/2016 [employer]ck [employer] MSD PNEUMOVAX 23 N [id number] Intramuscular Right Arm 12/02/2016 04/16/2014 33 Influenza [...] Foot drop, right Sep 01 2017 8:57AM Payers Insurance Name Company Name Plan Name Plan Number Policy Number Policy Group Number Start Date [facility] [id number] N/A Medicare Part A Medicare Part A [id number] N/A Medicare Part B Medicare Secondary [id number] N/A Medicare Part B Medicare Of [place] [id number] N/A Medicare Part A Medicare - Lab/Xray [id number] N/[id number]/A History of Encounters Visit Date Visit Type Provider 09/01/2017 Office visit Osei Mercado DO 08/02/2017 Office visit Osei Mercado DO 07/27/2017 Office visit Shira Joyce DOCUMENT CONTROL CLERK 07/05/2017 Office visit Osei Mercado DO 05/24/2017 Office visit Osei Mercado DO 05/17/2017 Office visit Timothy Cruz MD 09/23/2016 Office visit Timothy Cruz MD 08/04/2016 Office visit Timothy Cruz MD 06/28/2016 Office visit Timothy Cruz MD 03/26/2016 Office visit Timothy Cruz MD 01/06/2016 Office visit Timothy Cruz MD 11/28/2015 Office visit Araseli Ochoa DOCUMENT CONTROL CLERK 11/22/2015 Office visit Phillip Kimbrough PA-C 10/28/2015 Office visit Shira Joyce DOCUMENT CONTROL CLERK 08/21/2015 Office visit Timothy Cruz MD 08/18/2015 Hospital Isabel Townsend MD 08/18/2015 Hospital Lalitha Bender MD 08/16/2015 Office visit Phillip Kimbrough PA-C 08/04/2015 Office visit Timothy Cruz MD 05/06/2015 Office visit Shira Joyce DOCUMENT CONTROL CLERK 04/21/2015 [facility] Stevan Frey DO 04/18/2015 Office visit Phillip Kimbrough PA-C 03/28/2015 Office visit Stevan Frey DO 03/13/2015 Office visit Timothy Cruz MD 10/22/2014 Office visit Timothy Cruz MD 08/16/2014 Office visit Willy Gordillo DOCUMENT CONTROL CLERK 07/04/2014 Office visit Timothy Cruz MD 05/07/2014 Office visit 05/07/2014 Office visit Shira Joyce DOCUMENT CONTROL CLERK 05/06/2014 Voided Timothy Cruz MD 11/21/2013 Nurse visit Timothy Cruz MD 10/30/2013 Office visit Timothy Cruz MD 10/28/2013 Office visit Felisa Arita DOCUMENT CONTROL CLERK 07/20/2013 Office visit Timothy Cruz MD 05/10/2013 [...] Cruz MD 04/26/2012 Office visit Darby Moss DOCUMENT CONTROL CLERK 07/12/2011 Hospital Lalitha Bender MD 07/12/2011 Hospital Huang Abdi MD 07/16/2009 Office visit Huang Abdi MD 07/10/2009 Surgery Huang Abdi MD 06/10/2009 Surgery Huang Abdi MD
--- OUTSIDE RECORDS SUMMARY | 2017-11-08 08:21 | XMS REPORT ---
Author Author Phillip Kimbrough [facility] Address [address] [place], [place] [address] Care Team Providers Care Waistline Joiner Overlock Name Role Phone Phillip Kimbrough PCP Unavailable Allergies and Adverse Reactions Name Reaction Notes NO KNOWN DRUG ALLERGIES Plan of Treatment Not available. Medications Active Name Start Date Estimated Completion Date SIG Comments omeprazole 20 mg oral capsule,delayed release(DR/EC) Fish Oil 300 mg oral capsule take 2 capsules by oral route once glucosamine sulfate 2KCl 1,000 mg oral tablet take 2 tablets by oral route calcium and citrate and vitamin d lisinopril-hydrochlorothiazide 20-12.5 mg oral tablet take 1 tablet by oral route once daily atorvastatin 40 mg oral tablet take 1 tablet (40 mg) by oral route once daily diltiazem HCl 360 mg oral capsule, extended release take 1 capsule (360 mg) by oral route once daily Coumadin 5 mg oral tablet take 1 tab. on Tue, and Sat. 2 tab all other days digoxin 250 mcg oral tablet take 1 tablet (250 mcg) by oral route once daily timolol maleate 0.5 % ophthalmic drops flaxseed oil 1,000 mg oral capsule take 1 capsule by oral route daily Name Start Date Expiration Date SIG Comments [...] once a day (at bedtime) as needed Discontinued Name Start Date Discontinued Date SIG Comments pravatatin 11/06/2012 glucosamine hcl 11/06/2012 daily prednisone oral 05/07/2014 tramadol 50 mg oral tablet 11/27/2013 take 1 tablet by oral route As needed Ambien 10 mg oral tablet 02/06/2015 take 1 tablet (10 mg) by oral route once daily at bedtime Problem List Description Status Onset Hypertension Active Colonic Polyps, Personal History of Active Vital Signs Date Time BP-Sys(mm[Hg] BP-Jaylin(mm[Hg]) HR(bpm) RR(rpm) Temp WT HT HC BMI BSA BMI Percentile O2 Sat(%) 04/18/2015 6:31:00 PM 122 mmHg 60 mmHg [...] 03/13/2015 12:00 AM Decadron, Per 1 Mg [facility]# [address]-12 Reviewed 03/13/2015 12:00 AM Depo-Medrol, Per 80 Mg [facility]#[address]-28 Reviewed 03/28/2015 12:00 AM SELF-MGMT EDUC & TRAIN 1 PT Reviewed 03/28/2015 12:00 AM Screening, Colonoscopy,Colorectal Reviewed 03/31/2015 12:00 AM ELECTROCARDIOGRAM COMPLETE Reviewed 03/31/2015 12:00 AM CHEST X-RAY 2VW FRONTAL&LATL Reviewed 05/04/2012 12:00 AM US EXAM OF HEAD AND NECK Reviewed 09/22/2012 12:00 AM REMOVE IMPACTED EAR WAX UNI Reviewed 11/06/2012 12:00 AM Flu Injection 3 Years And Above [facility]# [address]-45 RHC Reviewed 12/04/2012 12:00 AM TD VACCINE [...] 05/07/2014 12:00 AM Decadron, Per 1 Mg [facility]# [address]-57 Reviewed 05/07/2014 12:00 AM Depo-Medrol, Per 80 Mg [facility]#1801-3408-53 Reviewed 05/07/2014 12:00 AM REMOVE IMPACTED EAR WAX UNI Reviewed 07/04/2014 12:00 AM Decadron 8 mg [facility]# [address]-51 Reviewed 07/04/2014 12:00 AM Depo-Medrol 80 mg [facility]#[address]-43 Reviewed Results Summary Data and Description Results 07/12/2011 8:15 AM GLUCOSE 96.0 mg/dLSODIUM 137.0 mmol/LPOTASSIUM 4.80 mmol/ LCHLORIDE 102.0 mmol/LCO2 25.0 mmol/LBUN 21.0 mg/dLCREATININE 1.40 mg/dLSGOT/ AST 20.0 IU/LSGPT/ALT 29.0 IU/LALK PHOS 47.0 IU/LTOTAL PROTEIN 6.40 g/dLALBUMIN 4.20 g/dLTOTAL BILI 1.10 mg/dLCALCIUM 9.10 mg/dLeGFR 50 WBC 6.7 RBC 4.93 HGB 15.60 g/dLHCT 48.0 %MCV 97.0 fLMCH 31.60 pgMCHC 32.50 g/dLRDW CV 13.60 %MPV 11.0 fLPLT 211 %NEUT 72.50 %%LYMP 19.10 %%MONO 7.10 %%EOS 0.90 %%BASO 0.40 %# NEUT 4.88 #LYMP 1.29 #MONO 0.48 #EOS 0.06 #BASO 0.03 MAGNESIUM 2.80 mg/dLBNP 192.0 pg/mL 06/20/2013 7:30 AM PROTIME 32.70 secsINR 3.0 07/03/2013 7:30 AM PROTIME 23.40 secsINR 2.2 07/18/2013 7:40 AM PROTIME 27.40 secsINR 2.6 03/28/2014 7:45 AM PROTIME 22.70 secsINR 2.2 04/22/2014 8:03 AM PROTIME 25.40 secsINR 2.5 11/12/2014 8:30 AM PROTIME 14.30 secsINR 1.4 11/20/2014 7:45 AM PROTIME 27.40 secsINR 2.7 01/09/2015 7:05 AM PROTIME 22.90 secsINR 2.2 02/10/2015 7:10 AM PROTIME 18.70 secsINR 1.8 02/17/2015 7:00 AM PROTIME 20.90 secsINR 2.0 03/11/2015 7:10 AM PROTIME 38.50 secsINR 3.7 03/19/2015 6:55 AM PROTIME 19.90 secsINR 1.9 04/01/2015 6:46 AM PROTIME 32.90 secsINR 3.0 04/16/2015 6:50 AM PROTIME 20.50 secsINR 1.9 04/21/2015 6:45 AM PROTIME 14.10 secsINR 1.3 History Of Immunizations Name Date Admin Mfg Name Mfg Code Trade Name Lot# Route Inj Vis Given Vis Pub CVX Influenza 11/06/2012 sanofi pasteur PMC Fluzone [id number] Intramuscular Left Deltoid 11/06/2012 08/23/2011 141 Td 12/04/2012 sanofi pasteur PMC TENIVAC [id number] Intramuscular Left Deltoid 12/04/2012 03/16/2011 113 Tdap 10/28/2013 sanofi pasteur PMC ADACEL [id number] Intramuscular Right Upper Arm 10/28/2013 07/21/2012 115 Pneumococcal 11/21/2013 Xgive-Jyaali-DtqsfdzPrashefali WAL Prevnar 13 [id number] Intramuscular Left Deltoid 11/22/2013 2012 33 History of Past Illness Name Date of Onset Comments Hypertension Special screening Colon Jun 10 2009 2:59PM Colonic Polyps, Personal History of Benign colon polyp Jul 16 2009 1:50PM Lower Limb Open Wound Apr 26 2012 [...] of right ear Apr 18 2015 6:37PM Payers Insurance Name Company Name Plan Name Plan Number Policy Number Policy Group Number Start Date [facility] [id number] N/A Medicare Part A Medicare Part A [id number] N/A Medicare Part B Medicare Secondary [id number] N/A Medicare Part B Medicare Of [place] [id number] N/[id number] N/A History of Encounters Visit Date Visit Type Provider 04/18/2015 Office visit Phillip Kimbrough PA-C 03/28/2015 Office visit Stevan Frey DO 03/13/2015 Office visit Timothy Cruz MD 10/22/2014 Office visit Timothy Cruz MD 08/16/2014 Office visit Willy Gordillo CIA AGENT 07/04/2014 Office visit Timothy Cruz MD 05/07/2014 Office visit 05/07/2014 Office visit Shira Joyce CIA AGENT 05/06/2014 Voided Timothy Cruz MD 11/21/2013 Nurse visit Timothy Cruz MD 10/30/2013 Office visit Timothy Cruz MD 10/28/2013 Office visit Felisa Arita CIA AGENT 07/20/2013 Office visit Timothy Cruz MD 05/10/2013 [facility] Lalitha Bender MD 02/27/2013 Office visit Timothy Cruz MD 01/03/2013 Nurse visit Timothy Cruz MD 12/04/2012 Office visit Timothy Cruz MD 12/01/2012 Office visit Timothy Cruz MD 11/06/2012 Office visit Timothy Cruz MD 09/25/2012 Office visit Timothy Cruz MD 09/22/2012 Office visit Phillip Kimbrough PA-C 05/04/2012 Office visit Timothy Cruz MD 04/26/2012 Office visit Darby Moss APRN 07/12/2011 [facility] Lalitha Bender MD 07/12/2011 [facility] Huang Abdi MD 07/16/2009 Office visit Huang Abdi MD 07/10/2009 Surgery Huang Abdi MD 06/10/2009 Surgery Huang Abdi MD
--- OUTSIDE RECORDS SUMMARY | 2017-11-08 08:21 | XMS REPORT ---
Author Author Shira Joyce Organization [facility] Address [address] [place], [place] [address] Care Team Providers Care Internal Combustion Engine Subassembler Name Role Phone Shira Joyce PCP Unavailable Allergies and Adverse Reactions Name [...] tablet by oral route every 12 hours Flonase Allergy Relief 50 mcg/actuation nasal spray,suspension 06/24/2015 inhale 2 sprays (100 mcg) in each nostril by intranasal route once daily Name Start Date Expiration Date SIG [...] HC BMI BSA BMI Percentile O2 Sat(%) 05/06/2015 1:33:00 PM 122 mmHg 78 mmHg 83 bpm 20 rpm 97.2 F 228 lbs 70 in 32.71 kg/m2 2.26 m2 97 % 04/18/2015 6:31:00 PM 122 mmHg 60 mmHg 99 bpm 96.7 F 227 lbs 70 in 32.5708 kg/m 2.2551 m 96 % 03/28/2015 11:58:00 AM 120 mmHg 78 mmHg 100 bpm 20 rpm 97.8 F 226 lbs 70 in 32.43 kg/m2 2.25 m2 03/13/2015 8:27:00 AM 112 mmHg 76 mmHg 80 bpm 18 rpm 97.2 F 227 lbs 70 in 32.5708 kg/m 2.2551 m 96 % 10/22/2014 1:42:00 PM 100 mmHg 64 mmHg 80 bpm 18 rpm 97.9 F 224 lbs 70 in 32.14 kg/m2 2.24 m2 08/16/2014 2:19:00 PM 108 mmHg 66 mmHg 84 bpm 18 rpm 97.9 F 229 lbs 71 in 31.9387 kg/m 2.2811 m 98 % 07/04/2014 10:18:00 AM 110 mmHg 70 mmHg 72 bpm 18 rpm 98.1 F 237 lbs 70 in 34.01 kg/m2 2.30 m2 05/07/2014 10:21:00 AM 122 mmHg 72 mmHg 74 bpm 18 rpm 97.7 F 229.5 lbs 70 in 32.9295 kg/m 2.2675 m 98 % 10/30/2013 2:33:00 PM 132 mmHg 80 mmHg 80 bpm 20 rpm 97.5 F 227 lbs 70 in 32.57 kg/m2 2.26 m2 10/28/2013 2:25:00 PM 98 mmHg 62 mmHg 88 bpm 18 rpm 97.3 F 226.062 lbs 70 in 32.4363 kg/m 2.2504 m 99 % 07/20/2013 10:53:00 AM 100 mmHg 64 mmHg 96 bpm 18 rpm 98.1 F 227 lbs 71 in 31.66 kg/m2 2.27 m2 02/27/2013 8:40:00 AM 108 mmHg 84 mmHg 88 bpm 18 rpm 97.4 F 236.5 lbs 71 in 32.9847 kg/m 2.3182 m 98 % 12/04/2012 8:13:00 AM 122 mmHg 84 mmHg 88 bpm 18 rpm 98.4 F 225 lbs 71 in 31.38 kg/m2 2.26 m2 12/01/2012 8:22:00 AM 117 mmHg 80 mmHg 75 bpm 16 rpm 97.8 F 227 lbs 71 in 31.6597 kg/m 2.2711 m 98 % 11/06/2012 8:25:00 AM 128 mmHg 74 mmHg 80 bpm 18 rpm 97.7 F 221 lbs 71 in 30.82 kg/m2 2.24 m2 09/25/2012 9:23:00 AM 115 mmHg 65 mmHg 72 bpm 18 rpm 98 F 224 lbs 71 in 31.2413 kg/m 2.2561 m 97 % 09/22/2012 5:43:00 PM 122 mmHg 68 mmHg 60 bpm 18 rpm 97.7 F 219 lbs 71 in 30.54 kg/m2 2.23 m2 98 % 05/04/2012 8:32:00 AM 110 mmHg 72 mmHg 82 bpm 18 rpm 98.4 F 219 lbs 71 in 30.544 kg/m 2.2307 m 04/26/2012 3:13:00 PM 74 bpm 18 rpm [...] 03/13/2015 12:00 AM Decadron, Per 1 Mg [facility]# [address]-09 Reviewed 03/13/2015 12:00 AM Depo-Medrol, Per 80 Mg [facility]#[address]-03 Reviewed 03/28/2015 12:00 AM SELF-MGMT EDUC & TRAIN 1 PT Reviewed 03/28/2015 12:00 AM Screening, Colonoscopy,Colorectal Reviewed 03/31/2015 12:00 AM ELECTROCARDIOGRAM COMPLETE Reviewed 03/31/2015 12:00 AM CHEST X-RAY 2VW FRONTAL&LATL Reviewed 05/06/2015 12:00 AM Decadron, Per 1 Mg [facility]# [address]-11 Reviewed 05/06/2015 12:00 AM Depo-Medrol 40mg Reviewed 05/06/2015 12:00 AM PROTHROMBIN TIME Reviewed 05/04/2012 12:00 AM US EXAM OF HEAD AND NECK Reviewed 09/22/2012 12:00 AM REMOVE IMPACTED EAR WAX UNI Reviewed 11/06/2012 12:00 AM Flu Injection 3 Years And Above [facility]# [address]-63 RHC Reviewed 12/04/2012 12:00 AM TD VACCINE [...] 05/07/2014 12:00 AM Decadron, Per 1 Mg [facility]# [address]-41 Reviewed 05/07/2014 12:00 AM Depo-Medrol, Per 80 Mg [facility]#4600-58[address]-33 Reviewed 05/07/2014 12:00 AM REMOVE IMPACTED EAR WAX UNI Reviewed 07/04/2014 12:00 AM Decadron 8 mg [facility]# [address]-74 Reviewed 07/04/2014 12:00 AM Depo-Medrol 80 mg [facility]#[address]-74 Reviewed Results Summary Data and Description Results [...] 04/21/2015 6:45 AM PROTIME 14.10 secsINR 1.3 05/06/2015 2:05 PM PROTIME 17.20 secsINR 1.6 05/15/2015 7:25 AM PROTIME 32.10 secsINR 2.9 06/16/2015 6:35 AM PROTIME 25.70 secsINR 2.3 History Of Immunizations Name Date Admin Mfg Name Mfg Code Trade Name Lot# Route Inj Vis Given Vis Pub CVX Influenza 11/06/2012 sanofi pasteur PMC Fluzone [id number] Intramuscular Left Deltoid 11/06/2012 08/23/2011 141 Td 12/04/2012 sanofi pasteur PMC TENIVAC [id number] Intramuscular Left Deltoid 12/04/2012 03/16/2011 113 Tdap 10/28/2013 sanofi pasteur PMC ADACEL [id number] Intramuscular Right Upper Arm 10/28/2013 07/21/2012 115 X 11/21/2013 Zmsoh-Aggccp-QngudkbJamison Garcianar 13 [id number] Intramuscular Left Deltoid 11/22/2013 2012 33 History [...] Atrial fibrillation, chronic May 06 2015 1:35PM Payers Insurance Name Company Name Plan Name Plan Number Policy Number Policy Group Number Start Date [facility] [id number] N/A Medicare Part A Medicare Part A [id number] N/A Medicare Part B Medicare Secondary [id number] N/A Medicare Part B Medicare [facility] [id number] N/A [id number]/A History of Encounters Visit Date Visit Type Provider 05/06/2015 Office visit Shira Joyce PROOF COINS INSPECTOR 04/21/2015 Hospital Stevan Frey DO 04/18/2015 Office visit Phillip Kimbrough PA-C 03/28/2015 Office visit Stevan Frey DO 03/13/2015 Office visit Timothy Cruz MD 10/22/2014 Office visit Timothy Cruz MD 08/16/2014 Office visit Willy Goridllo PROOF COINS INSPECTOR 07/04/2014 Office visit Timothy Cruz MD 05/07/2014 Office visit 05/07/2014 Office visit Shira Joyce PROOF COINS INSPECTOR 05/06/2014 Voided Timothy Cruz MD 11/21/2013 Nurse visit Timothy Cruz MD 10/30/2013 Office visit Timothy Cruz MD 10/28/2013 Office visit Felisa Arita PROOF COINS INSPECTOR 07/20/2013 Office visit Timothy Cruz MD 05/10/2013 [...] Cruz MD 04/26/2012 Office visit Darby Moss PROOF COINS INSPECTOR 07/12/2011 Hospital Lalitha Bender MD 07/12/2011 Hospital Huang Abdi MD 07/16/2009 Office visit Huang Abdi MD 07/10/2009 Surgery Huang Abdi MD 06/10/2009 Surgery Huang Abdi MD
--- OUTSIDE RECORDS SUMMARY | 2017-11-08 08:22 | XMS REPORT ---
Author Author Shira Joyce Organization [facility] Address [address] [place], [place] [address] Care Team Providers Care First Aid Instructor Name Role Phone Shira Joyce PCP Unavailable [...] Flonase Allergy Relief 50 mcg/actuation nasal spray,suspension 05/06/2015 inhale 2 sprays (100 mcg) in each [...] 03/13/2015 12:00 AM Decadron, Per 1 Mg [facility]# [address]-81 Reviewed 03/13/2015 12:00 AM Depo-Medrol, Per 80 Mg [facility]#[address]-11 Reviewed 03/28/2015 12:00 AM SELF-MGMT EDUC & TRAIN 1 PT Reviewed 03/28/2015 12:00 AM Screening, Colonoscopy,Colorectal Reviewed 03/31/2015 12:00 AM ELECTROCARDIOGRAM COMPLETE Reviewed 03/31/2015 12:00 AM CHEST X-RAY 2VW FRONTAL&LATL Reviewed 05/06/2015 12:00 AM Decadron, Per 1 Mg [facility]# [address]-46 Reviewed 05/06/2015 12:00 AM Depo-Medrol 40mg Reviewed 05/06/2015 12:00 AM PROTHROMBIN TIME Reviewed 05/04/2012 12:00 AM US EXAM OF HEAD AND NECK Reviewed 09/22/2012 12:00 AM REMOVE IMPACTED EAR WAX UNI Reviewed 11/06/2012 12:00 AM Flu Injection 3 Years And Above [facility]# [address]-49 RHC Reviewed 12/04/2012 12:00 AM TD VACCINE [...] 05/07/2014 12:00 AM Decadron, Per 1 Mg [facility]# [address]-43 Reviewed 05/07/2014 12:00 AM Depo-Medrol, Per 80 Mg [facility]#6351-8591-72 Reviewed 05/07/2014 12:00 AM REMOVE IMPACTED EAR WAX UNI Reviewed 07/04/2014 12:00 AM Decadron 8 mg [facility]# [address]-58 Reviewed 07/04/2014 12:00 AM Depo-Medrol 80 mg [facility]#[address]-08 Reviewed Results Summary Data and Description Results [...] Of Immunizations Name Date Admin Mfg Name Mf Code Trade Name Lot# Route Inj Vis Given Vis Pub CVX Influenza 11/06/2012 sanofi pasteur PMC Fluzone [id number] Intramuscular Left Deltoid 11/06/2012 08/23/2011 141 Td 12/04/2012 sanofi pasteur PMC TENIVAC [id number] Intramuscular Left Deltoid 12/04/2012 03/16/2011 113 Tdap 10/28/2013 sanofi pasteur PMC ADACEL [id number] Intramuscular Right Upper Arm 10/28/2013 07/21/2012 115 Pneumococcal 11/21/2013 Jfejr-Dafcob-BhgrwayPrashefali [facility] Prevnar 13 [id number] Intramuscular Left Deltoid 11/22/2013 2012 33 History [...] Number Start Date [facility] [id number] N/A Medicare Part A Medicare Part A [id number] N/A Medicare Part B Medicare Secondary [id number] N/A Medicare Part B Medicare Of [place] [id number] N/A [id number] N/A History of Encounters Visit Date Visit Type Provider 05/06/2015 Office visit Shira Walker CURER FOAM RUBBER 04/21/2015 Hospital Stevan Frey DO 04/18/2015 Office visit Phillip Kimbrough PA-C 03/28/2015 Office visit Stevan Frey DO 03/13/2015 Office visit Timothy Cruz MD 10/22/2014 Office visit Timothy Cruz MD 08/16/2014 Office visit Willy Gordillo CURER FOAM RUBBER 07/04/2014 Office visit Timothy Cruz MD 05/07/2014 Office visit 05/07/2014 Office visit Shira Joyce CURER FOAM RUBBER 05/06/2014 Voided Timothy Cruz MD 11/21/2013 Nurse visit Timothy Cruz MD 10/30/2013 Office visit Timothy Cruz MD 10/28/2013 Office visit Felisa Arita CURER FOAM RUBBER 07/20/2013 Office visit Timothy Cruz MD 05/10/2013 Hospital Laltiha Bender MD 02/27/2013 Office visit Timothy Cruz MD 01/03/2013 Nurse visit Timothy Cruz MD 12/04/2012 Office visit Timothy Cruz MD 12/01/2012 Office visit Timothy Cruz MD 11/06/2012 Office visit Timothy Cruz MD 09/25/2012 Office visit Timothy Cruz MD 09/22/2012 Office visit Phillip Kimbrough PA-C 05/04/2012 Office visit Timothy Cruz MD 04/26/2012 Office visit Darby Moss CURER FOAM RUBBER 07/12/2011 Hospital Lalitha Bender MD 07/12/2011 Hospital Huang Abdi MD 07/16/2009 Office visit Huang Abdi MD 07/10/2009 Surgery Huang Abdi MD 06/10/2009 Surgery Huang Abdi MD
--- OUTSIDE RECORDS SUMMARY | 2017-11-08 08:23 | XMS REPORT ---
Author Author Araseli Ochoa [facility] Address [address] [place], [place] [id number] Care Team Providers Care Compliance Examiner Name Role Phone Araseli Ochoa PCP Unavailable Allergies and Adverse Reactions Name [...] tablet by oral route every 12 hours hydrocodone-acetaminophen 5-325 mg oral tablet 08/26/2015 take 1 tablet by oral route every 6 hours as needed for pain Amitiza 8 mcg oral capsule 08/26/2015 02/22/2016 take 1 capsule (8 mcg) by oral route 2 times per day with food and water for 30 days Flonase Allergy Relief 50 mcg/actuation nasal spray,suspension 10/16/2015 inhale 2 sprays (100 mcg) in each nostril by intranasal route once daily diclofenac sodium 75 mg oral tablet,delayed release (DR/EC) 10/28/2015 take 1 tablet (75 mg) by oral route 2 times per day Levaquin 500 mg oral tablet take 1 tablet (500 mg) by oral route once daily for 7 days Name Start Date Expiration Date SIG Comments [...] (at bedtime) as needed for 30 days Discontinued Name Start Date Discontinued Date SIG Comments pravatatin 11/06/2012 glucosamine hcl 11/06/2012 daily prednisone oral 05/07/2014 tramadol 50 mg oral tablet 11/27/2013 take 1 tablet by oral route As needed Ambien 10 mg oral tablet 02/06/2015 take 1 tablet (10 mg) by oral route once daily at bedtime Movantik 25 mg oral tablet 08/26/2015 08/26/2015 take 1 tablet (25 mg) by oral route once daily in the morning for 7 days Problem List Description Status Onset Hypertension Active Colonic Polyps, Personal History of Active Atrial fibrillation, chronic Active 05/06/2015 Allergic rhinitis, unspecified allergic rhinitis type Active 05/06/2015 Vital Signs Date Time BP-Sys(mm[Hg] BP-Jaylin(mm[Hg]) HR(bpm) RR(rpm) Temp WT HT HC BMI BSA BMI Percentile O2 Sat(%) 11/28/2015 6:19:00 PM 128 mmHg 68 mmHg 81 bpm 14 rpm 96.6 F 231.5 lbs 70 in 33.22 kg/m2 2.28 m2 97 % 11/22/2015 9:08:00 AM 114 mmHg 80 mmHg 102 bpm 98.2 F 231 lbs 70 in 33.1447 kg/m 2.2749 m 98 % 10/28/2015 9:19:00 AM 130 mmHg 72 mmHg 132 bpm 18 rpm 97.4 F 231 lbs 70 in 33.14 kg/m2 2.27 m2 98 % 08/21/2015 10:26:00 AM 130 mmHg 88 mmHg 100 bpm 18 rpm 98.9 F 230 lbs 70 in 33.0012 kg/m 2.2699 m 98 % 08/16/2015 1:53:00 PM 132 mmHg 74 mmHg 79 bpm 18 rpm 98 F 230 lbs 70 in 33.00 kg/m2 2.27 m2 98 % 08/04/2015 3:46:00 PM 110 mmHg 62 mmHg 76 bpm 18 rpm 97.8 F 229 lbs 70 in 32.8577 kg/m 2.265 m 98 % 05/06/2015 1:33:00 PM 122 mmHg [...] 03/13/2015 12:00 AM Decadron, Per 1 Mg [facility]# [address]-87 Reviewed 03/13/2015 12:00 AM Depo-Medrol, Per 80 Mg [facility]#[address]-85 Reviewed 03/28/2015 12:00 AM SELF-MGMT EDUC & TRAIN 1 PT Reviewed 03/28/2015 12:00 AM Screening, Colonoscopy,Colorectal Reviewed 03/31/2015 12:00 AM ELECTROCARDIOGRAM COMPLETE Reviewed 03/31/2015 12:00 AM CHEST X-RAY 2VW FRONTAL&LATL Reviewed 05/06/2015 12:00 AM Decadron, Per 1 Mg [facility]# [address]-81 Reviewed 05/06/2015 12:00 AM Depo-Medrol 40mg Reviewed 05/06/2015 12:00 AM PROTHROMBIN TIME Reviewed 08/04/2015 12:00 AM Decadron, Per 1 Mg [facility]# [address]-30 Reviewed 08/04/2015 12:00 AM Depo-Medrol, Per 80 Mg [facility]#[address]-76 Reviewed 08/21/2015 12:00 AM MRI LOWER EXTREMITY W/O DYE Returned 10/28/2015 12:00 AM Toradol 60 Mg [facility]#2865-3993-78 Reviewed 10/28/2015 12:00 AM INFLUENZA VAC 4 VALENT PRSRV FREE 3 YRS PLUS IM Reviewed 05/04/2012 12:00 AM US EXAM OF HEAD AND NECK Reviewed 09/22/2012 12:00 AM REMOVE IMPACTED EAR WAX UNI Reviewed 11/06/2012 12:00 AM Flu Injection 3 Years And Above [facility]# [address]-15 RHC Reviewed 12/04/2012 12:00 AM TD VACCINE [...] 05/07/2014 12:00 AM Decadron, Per 1 Mg [facility]# [address]-78 Reviewed 05/07/2014 12:00 AM Depo-Medrol, Per 80 Mg [facility]#4555-4993-29 Reviewed 05/07/2014 12:00 AM REMOVE IMPACTED EAR WAX UNI Reviewed 07/04/2014 12:00 AM Decadron 8 mg [facility]# [address]-27 Reviewed 07/04/2014 12:00 AM Depo-Medrol 80 mg [facility]#[address]-93 Reviewed Results Summary Data and Description Results [...] 06/16/2015 6:35 AM PROTIME 25.70 secsINR 2.3 07/15/2015 6:50 AM PROTIME 16.90 secsINR 1.5 07/18/2015 7:19 AM PROTIME 20.90 secsINR 1.9 07/29/2015 7:10 AM PROTIME 28.60 secsINR 2.6 08/18/2015 12:15 AM BNP 89.0 pg/mL 08/18/2015 3:55 AM TROPONIN-I AD <0.04 ng/mLLACTIC ACID 2.2 mmol/L 08/27/2015 7:15 AM PROTIME 21.80 secsINR 2.0 09/09/2015 7:15 AM PROTIME 42.20 secsINR 3.8 09/15/2015 7:05 AM PROTIME 14.70 secsINR 1.3 09/25/2015 7:10 AM PROTIME 41.50 secsINR 3.8 TRIGLYCERIDES 102.0 mg/ dLCHOLESTEROL 119.0 mg/dLHDL 37.0 mg/dLLDL (CALC) 62.0 mg/dLGLUCOSE 97.0 mg/ dLSODIUM 141.0 mmol/LPOTASSIUM 4.10 mmol/LCHLORIDE 107.0 mmol/LCO2 23.0 mmol/ LBUN 13.0 mg/dLCREATININE 1.0 mg/dLSGOT/AST 14.0 IU/LSGPT/ALT 19.0 IU/LALK PHOS 59.0 IU/LTOTAL PROTEIN 6.50 g/dLALBUMIN 4.20 g/dLTOTAL BILI 0.70 mg/dLCALCIUM 9.50 mg/dLeGFR >60 mL/min/1.73m 10/02/2015 7:10 AM PROTIME 21.20 secsINR 1.9 10/13/2015 7:00 AM PROTIME 43.40 secsINR 3.9 10/16/2015 7:55 AM PROTIME 16.70 secsINR 1.5 10/22/2015 7:00 AM PROTIME 25.50 secsINR 2.3 11/05/2015 7:00 AM PROTIME 34.40 secsINR 3.1 11/17/2015 7:05 AM PROTIME 21.10 secsINR 1.9 History Of Immunizations Name Date Admin Mfg Name Mfg Code Trade Name Lot# Route Inj Vis Given Vis Pub CVX Influenza 11/06/2012 sanofi pasteur PMC Fluzone [id number] Intramuscular Left Deltoid 11/06/2012 08/23/2011 141 Td 12/04/2012 sanofi pasteur PMC TENIVAC [id number] Intramuscular Left Deltoid 12/04/2012 03/16/2011 113 Tdap 10/28/2013 sanofi pasteur PMC ADACEL [id number] Intramuscular Right Upper Arm 10/28/2013 07/21/2012 115 X 11/21/2013 Mechelle-Prashefali [facility] Prevnar 13 [id number] Intramuscular Left Deltoid 11/22/2013 2012 33 Influenza 10/28/2015 sanofi pasteur PMC Fluzone UI [id number] Intramuscular Right Deltoid 10/28/2015 09/27/2014 141 History of Past Illness Name Date of [...] ear effusion, bilateral Nov 28 2015 6:22PM Payers Insurance Name Company Name Plan Name Plan Number Policy Number Policy Group Number Start Date [facility] [id number] N/A Medicare Part A Medicare Part A [id number] N/A Medicare Part B Medicare Secondary [id number] N/A Medicare Part B Medicare Of [place] [id number] N/A Medicare Part A Medicare - Lab/Xray [id number] N/A [id number]A History of Encounters Visit Date Visit Type Provider 11/28/2015 Office visit Araseli Ochoa AIRLINE MECHANIC 11/22/2015 Office visit Phillip Kimbrough PA-C 10/28/2015 Office visit Shira Joyce AIRLINE MECHANIC 08/21/2015 Office visit Timothy Cruz MD 08/18/2015 [facility] Isabel Townsend MD 08/16/2015 Office visit Phillip Kimbrough PA-C 08/04/2015 Office visit Timothy Cruz MD 05/06/2015 Office visit Shira Joyce AIRLINE MECHANIC 04/21/2015 [facility] Stevan Frey DO 04/18/2015 Office visit Phillip Kimbrough PA-C 03/28/2015 Office visit Stevan Frey DO 03/13/2015 Office visit Timothy Cruz MD 10/22/2014 Office visit Timothy Cruz MD 08/16/2014 Office visit Willy Gordillo AIRLINE MECHANIC 07/04/2014 Office visit Timothy Cruz MD 05/07/2014 Office visit 05/07/2014 Office visit Shira Joyce AIRLINE MECHANIC 05/06/2014 Voided Timothy Cruz MD 11/21/2013 Nurse visit Timothy Cruz MD 10/30/2013 Office visit Timothy Cruz MD 10/28/2013 Office visit Felisa Arita APRN 07/20/2013 Office visit Timothy Cruz MD 05/10/2013 [facility] Lalitha Bender MD 02/27/2013 Office visit Timothy Cruz MD 01/03/2013 Nurse visit Timothy Cruz MD 12/04/2012 Office visit Timothy Cruz MD 12/01/2012 Office visit Timothy Cruz MD 11/06/2012 Office visit Timothy Cruz MD 09/25/2012 Office visit Timothy Cruz MD 09/22/2012 Office visit Phillip Kimbrough PA-C 05/04/2012 Office visit Timothy Cruz MD 04/26/2012 Office visit Darby Moss APRN 07/12/2011 Hospital Lalitha Bender MD 07/12/2011 Hospital Huang Abdi MD 07/16/2009 Office visit Huang Abdi MD 07/10/2009 Surgery Huang Adbi MD 06/10/2009 Surgery Huang Abdi MD
--- OUTSIDE RECORDS SUMMARY | 2017-11-08 08:24 | XMS REPORT ---
Author Stevan Kiran [facility] Address [address] [place], [place] [id number] Care Team Providers Care Drill Operator Pneumatic Name Role Phone Stevan Frey PCP Unavailable Allergies and Adverse Reactions Name Reaction Notes NO KNOWN DRUG ALLERGIES Plan of Treatment Planned Activity Comments Planned Date Planned Time Plan/Goal SELF-MGMT EDUC & TRAIN 1 PT 03/28/2015 12:00 AM ELECTROCARDIOGRAM COMPLETE 03/31/2015 12:00 AM CHEST X-RAY 2VW FRONTAL&LATL 03/31/2015 12:00 AM Medications Active Name Start Date Estimated Completion [...] take 1 capsule by oral route daily naproxen 500 mg oral tablet 03/28/2014 take 1 tablet (500 mg) by oral route 2 times per day with food cyclobenzaprine 10 mg oral tablet 03/13/2015 take 1 tablet by oral route once a day (at bedtime) as needed Name Start Date Expiration Date SIG Comments [...] 2 times per day for 30 days Restoril 15 mg oral capsule take 1 capsule (15 mg) by oral route once daily at bedtime as needed Ambien 10 mg oral tablet take 1 tablet (10 mg) by oral route once daily at bedtime for 30 days Discontinued Name Start Date [...] HC BMI BSA BMI Percentile O2 Sat(%) 03/28/2015 11:58:00 AM 120 mmHg 78 mmHg [...] 03/13/2015 12:00 AM Decadron, Per 1 Mg [facility]# [address]-19 Reviewed 03/13/2015 12:00 AM Depo-Medrol, Per 80 Mg [facility]#[address]-28 Reviewed 03/28/2015 12:00 AM Screening, Colonoscopy,Colorectal Reviewed 05/04/2012 12:00 AM US EXAM OF HEAD AND NECK Reviewed 09/22/2012 12:00 AM REMOVE IMPACTED EAR WAX UNI Reviewed 11/06/2012 12:00 AM Flu Injection 3 Years And Above [facility]# [address]-53 RHC Reviewed 12/04/2012 12:00 AM TD VACCINE [...] 05/07/2014 12:00 AM Decadron, Per 1 Mg [facility]# [address]-88 Reviewed 05/07/2014 12:00 AM Depo-Medrol, Per 80 Mg [facility]#0808-6975-97 Reviewed 05/07/2014 12:00 AM REMOVE IMPACTED EAR WAX UNI Reviewed 07/04/2014 12:00 AM Decadron 8 mg [facility]# [address]-88 Reviewed 07/04/2014 12:00 AM Depo-Medrol 80 mg [facility]#[address]-61 Reviewed Results Summary Data and Description Results [...] 03/19/2015 6:55 AM PROTIME 19.90 secsINR 1.9 History Of Immunizations Name Date Admin Mfg Name Mfg Code Trade Name Lot# Route Inj Vis Given Vis Pub CVX Influenza 11/06/2012 sanofi pasteur PMC Fluzone [id number] Intramuscular Left Deltoid 11/06/2012 08/23/2011 141 Td 12/04/2012 sanofi pasteur PMC TENIVAC [id number] Intramuscular Left Deltoid 12/04/2012 03/16/2011 113 Tdap 10/28/2013 sanofi pasteur PMC ADACEL [id number] Intramuscular Right Upper Arm 10/28/2013 07/21/2012 115 Pneumococcal 11/21/2013 Shannon Garcianar 13 [id number] Intramuscular Left Deltoid 11/22/2013 2012 33 History [...] 11:52AM Preop examination Mar 31 2015 12:28PM Payers Insurance Name Company Name Plan Name Plan Number Policy Number Policy Group Number Start Date [facility] [id number] N/A Medicare Part A Medicare Part A [id number] N/A Medicare Part B Medicare Secondary [id number] N/A Medicare Part B Medicare Of [place] [id number] N/A BCBS [facility] [id number] N/A History of Encounters Visit Date Visit Type Provider 03/28/2015 Office visit Stevan Frey DO 03/13/2015 Office visit Timothy Cruz MD 10/22/2014 Office visit Timothy Cruz MD 08/16/2014 Office visit Willy Gordillo BOX LIDDER 07/04/2014 Office visit Timothy Cruz MD 05/07/2014 Office visit 05/07/2014 Office visit Shira Joyce BOX LIDDER 05/06/2014 Voided Timothy Cruz MD 11/21/2013 Nurse visit Timothy Cruz MD 10/30/2013 Office visit Timothy Cruz MD 10/28/2013 Office visit Felisa Arita BOX LIDDER 07/20/2013 Office visit Timothy Cruz MD 05/10/2013 [...] Cruz MD 04/26/2012 Office visit Darby Moss BOX LIDDER 07/12/2011 Hospital Lalitha Bender MD 07/12/2011 Hospital Huang Abdi MD 07/16/2009 Office visit Huang Abdi MD 07/10/2009 Surgery Huang Abdi MD 06/10/2009 Surgery Huang Abdi MD
--- OUTSIDE RECORDS SUMMARY | 2017-11-08 08:24 | XMS REPORT ---
Author Author Osei Mercado Organization [facility] Address [address] [place], [place] [address] Care Team Providers Care Forklift Operator Name Role Phone Osei Mercado PCP Timothy [...] HC BMI BSA BMI Percentile O2 Sat(%) 08/02/2017 8:29:00 AM 118 mmHg 70 mmHg [...] 03/13/2015 12:00 AM Decadron, Per 1 Mg [facility]# [address]-09 Reviewed 03/13/2015 12:00 AM Depo-Medrol, Per 80 Mg [facility]#[address]-16 Reviewed 03/28/2015 12:00 AM SELF-MGMT EDUC & TRAIN 1 PT Reviewed 03/28/2015 12:00 AM Screening, Colonoscopy,Colorectal Reviewed 03/31/2015 12:00 AM ELECTROCARDIOGRAM COMPLETE Reviewed 03/31/2015 12:00 AM CHEST X-RAY 2VW FRONTAL&LATL Reviewed 05/06/2015 12:00 AM Decadron, Per 1 Mg [facility]# [address]-37 Reviewed 05/06/2015 12:00 AM Depo-Medrol 40mg Reviewed 05/06/2015 12:00 AM PROTHROMBIN TIME Reviewed 08/04/2015 12:00 AM Decadron, Per 1 Mg [facility]# [address]-18 Reviewed 08/04/2015 12:00 AM Depo-Medrol, Per 80 Mg [facility]#[address]-29 Reviewed 08/21/2015 12:00 AM MRI LOWER EXTREMITY W/O DYE Reviewed 10/28/2015 12:00 AM Toradol 60 Mg [facility]#2384-3530-35 Reviewed 10/28/2015 12:00 AM INFLUENZA VAC 4 [...] AM Flu Injection 3 Years And Above [facility]# [address]-56 RHC Reviewed 12/04/2012 12:00 AM TD VACCINE [...] 05/07/2014 12:00 AM Decadron, Per 1 Mg [facility]# [address]-61 Reviewed 05/07/2014 12:00 AM Depo-Medrol, Per 80 Mg [facility]#4377-1859-75 Reviewed 05/07/2014 12:00 AM REMOVE IMPACTED EAR WAX UNI Reviewed 07/04/2014 12:00 AM Decadron 8 mg [facility]# [address]-88 Reviewed 07/04/2014 12:00 AM Depo-Medrol 80 mg [facility]#[address]-30 Reviewed 08/16/2014 12:00 AM REMOVE IMPACTED EAR WAX UNI Reviewed Results Summary Date and Description Results 04/16/2015 6:50 AM PROTIME 20.50 secsINR 1.9 05/06/2015 2:05 PM PROTIME 17.20 secsINR 1.6 History Of Immunizations Name Date Admin Mfg Name Mfg Code Trade Name Lot# Route Inj Vis Given Vis Pub CVX Influenza 11/06/2012 sanofi pasteur PMC FLUZONE [id number] Intramuscular Left Deltoid 11/06/2012 08/23/2011 141 Td 12/04/2012 sanofi pasteur PMC Tenivac [id number] Intramuscular Left Deltoid 12/04/2012 03/16/2011 113 Tdap 10/28/2013 sanofi pasteur PMC ADACEL [id number] Intramuscular Right Upper Arm 10/28/2013 07/21/2012 115 X 11/21/2013 [facility]-Raotvb-BsgvuoyJamison [facility] PREVNAR 13 [id number] Intramuscular Left Deltoid 11/22/2013 2012 33 Influenza 10/28/2015 sanofi pasteur PMC FLUZONE UI [id number] Intramuscular Right Deltoid 10/28/2015 09/27/2014 141 Pneumococcal 11/01/2016 [employer] MSD PNEUMOVAX 23 N [id number] Intramuscular Right Arm 12/02/2016 04/16/2014 33 Influenza [...] Foot drop, right Aug 02 2017 8:35AM Payers Insurance Name Company Name Plan Name Plan Number Policy Number Policy Group Number Start Date [facility] [id number] N/A Medicare Part A Medicare Part A [id number] N/A Medicare Part B Medicare Secondary [id number] N/A Medicare Part B Medicare Of [place] [id number] N/A Medicare Part A Medicare - Lab/Xray [id number] N/A BCBS [facility] [id number] N/A History of Encounters Visit Date Visit Type Provider 08/02/2017 Office visit Osei Mercado DO 07/27/2017 Office visit Shira Joyce GRADER OPERATOR 07/05/2017 Office visit Osei Mercado DO 05/24/2017 Office visit Osei Mercado DO 05/17/2017 Office visit Timothy Cruz MD 09/23/2016 Office visit Timothy Cruz MD 08/04/2016 Office visit Timothy Cruz MD 06/28/2016 Office visit Timothy Cruz MD 03/26/2016 Office visit Timothy Cruz MD 01/06/2016 Office visit Timothy Cruz MD 11/28/2015 Office visit Araseli Ochoa GRADER OPERATOR 11/22/2015 Office visit Phillip Kimbrough PA-C 10/28/2015 Office visit Shira Joyce GRADER OPERATOR 08/21/2015 Office visit Timothy Cruz MD 08/18/2015 Hospital Isabel Townsend MD 08/18/2015 [facility] Lalitha Bender MD 08/16/2015 Office visit Phillip Kimbrough PA-C 08/04/2015 Office visit Timothy Cruz MD 05/06/2015 Office visit Shira Joyce GRADER OPERATOR 04/21/2015 Hospital Stevan Tk DO 04/18/2015 Office visit Phillip JAMESC 03/28/2015 Office visit Stevan Frey DO 03/13/2015 Office visit Timothy Cruz MD 10/22/2014 Office visit Timothy Cruz MD 08/16/2014 Office visit Willy Gordillo GRADER OPERATOR 07/04/2014 Office visit Timothy Cruz MD 05/07/2014 Office visit 05/07/2014 Office visit Shira Joyce GRADER OPERATOR 05/06/2014 Voided Timothy Cruz MD 11/21/2013 Nurse visit Timothy Cruz MD 10/30/2013 Office visit Timothy Cruz MD 10/28/2013 Office visit Felisa Arita GRADER OPERATOR 07/20/2013 Office visit Timothy Cruz MD 05/10/2013 [facility] Lalitha Bender MD 02/27/2013 Office visit Timothy Cruz MD 01/03/2013 Nurse visit Timothy Cruz MD 12/04/2012 Office visit Timohty Cruz MD 12/01/2012 Office visit Timothy Cruz MD 11/06/2012 Office visit Timothy Cruz MD 09/25/2012 Office visit Timothy Cruz MD 09/22/2012 Office visit Phillip Kimbrough PA-C 05/04/2012 Office visit Timothy Cruz MD 04/26/2012 Office visit Darby Moss GRADER OPERATOR 07/12/2011 Hospital Lalitha Bender MD 07/12/2011 Hospital Huang Abdi MD 07/16/2009 Office visit Huang Abdi MD 07/10/2009 Surgery Huang Abdi MD 06/10/2009 Surgery Huang Abdi MD
--- OUTSIDE RECORDS SUMMARY | 2017-11-08 08:25 | XMS REPORT ---
Author Author Shira Joyce Organization [facility] Address [address] [place], [place] [id number] Care Team Providers Care Electronics Warfare Technician Name Role Phone Shira Joyce PCP Unavailable Allergies and Adverse Reactions Name Reaction Notes NO KNOWN DRUG ALLERGIES Plan of Treatment Planned Activity Comments Planned Date Planned Time Plan/Goal PROTHROMBIN TIME 05/06/2015 12:00 AM Medications Active Name Start Date [...] 03/13/2015 12:00 AM Decadron, Per 1 Mg [facility]# [address]-62 Reviewed 03/13/2015 12:00 AM Depo-Medrol, Per 80 Mg [facility]#[address]-13 Reviewed 03/28/2015 12:00 AM SELF-MGMT EDUC & TRAIN 1 PT Reviewed 03/28/2015 12:00 AM Screening, Colonoscopy,Colorectal Reviewed 03/31/2015 12:00 AM ELECTROCARDIOGRAM COMPLETE Reviewed 03/31/2015 12:00 AM CHEST X-RAY 2VW FRONTAL&LATL Reviewed 05/06/2015 12:00 AM Decadron, Per 1 Mg [facility]# [address]-79 Reviewed 05/06/2015 12:00 AM Depo-Medrol 40mg Reviewed 05/04/2012 12:00 AM US EXAM OF HEAD AND NECK Reviewed 09/22/2012 12:00 AM REMOVE IMPACTED EAR WAX UNI Reviewed 11/06/2012 12:00 AM Flu Injection 3 Years And Above [facility]# [address]-25 RHC Reviewed 12/04/2012 12:00 AM TD VACCINE [...] 05/07/2014 12:00 AM Decadron, Per 1 Mg [facility]# [address]-58 Reviewed 05/07/2014 12:00 AM Depo-Medrol, Per 80 Mg [facility]#0600[address]-92 Reviewed 05/07/2014 12:00 AM REMOVE IMPACTED EAR WAX UNI Reviewed 07/04/2014 12:00 AM Decadron 8 mg [facility]# [address]-75 Reviewed 07/04/2014 12:00 AM Depo-Medrol 80 mg [facility]#[address]-85 Reviewed Results Summary Data and Description Results [...] CVX Influenza 11/06/2012 sanofi pasteur PMC Fluzone [id number] Intramuscular Left Deltoid 11/06/2012 08/23/2011 141 Td 12/04/2012 sanofi pasteur PMC TENIVAC [id number] Intramuscular Left Deltoid 12/04/2012 03/16/2011 113 Tdap 10/28/2013 sanofi pasteur PMC ADACEL [id number] Intramuscular Right Upper Arm 10/28/2013 07/21/2012 115 Pneumococcal 11/21/2013 [facility] [id number] Intramuscular Left Deltoid 11/22/2013 2012 33 History [...] Policy Number Policy Group Number Start Date [facility] [id number] N/A Medicare Part A Medicare Part A [id number] N/A Medicare Part B Medicare Secondary [id number] N/A Medicare Part B Medicare Of [place] [id number] N/A [facility] [id number] N/A History of Encounters Visit Date Visit Type Provider 05/06/2015 Office visit Shira Joyce LETTERPRESS PRINTING MACHINIST 04/21/2015 [facility] Stevan Frey DO 04/18/2015 Office visit Phillip Kimbrough PA-C 03/28/2015 Office visit Stevan Frey DO 03/13/2015 Office visit Timothy Cruz MD 10/22/2014 Office visit Timothy Cruz MD 08/16/2014 Office visit Willy Gordillo LETTERPRESS PRINTING MACHINIST 07/04/2014 Office visit Timothy Cruz MD 05/07/2014 Office visit 05/07/2014 Office visit Shira Joyce LETTERPRESS PRINTING MACHINIST 05/06/2014 Voided Timothy Cruz MD 11/21/2013 Nurse visit Timothy Cruz MD 10/30/2013 Office visit Timothy Cruz MD 10/28/2013 Office visit Felisa Arita LETTERPRESS PRINTING MACHINIST 07/20/2013 Office visit Timothy Cruz MD 05/10/2013 [...] Cruz MD 04/26/2012 Office visit Darby Moss LETTERPRESS PRINTING MACHINIST 07/12/2011 Hospital Lalitha Bender MD 07/12/2011 Hospital Huang Abdi MD 07/16/2009 Office visit Huang Abdi MD 07/10/2009 Surgery Huang Abdi MD 06/10/2009 Surgery Huang Abdi MD
--- OUTSIDE RECORDS SUMMARY | 2017-11-08 08:26 | XMS REPORT ---
Author Author Timothy Cruz [facility] Address [address] [place], [place] [address] Care Team Providers Care Wire Coiler Name Role Phone Timothy Cruz PCP Unavailable Allergies and Adverse Reactions Name Reaction Notes NO KNOWN DRUG ALLERGIES Plan of Treatment Not available. Medications Active Name Start Date Estimated Completion Date SIG Comments Lisinopril Oral one daily Omeprazole Oral Capsule, Delayed Release(E.C.) 20 mg Fish Oil Oral Capsule 300 mg take 2 capsules by oral route once Glucosamine Oral Tablet 1,000 mg take 2 tablets by oral route calcium and citrate and vitamin d pot-chloride 10 meq 11/06/2012 1 tablet daily lisinopril-hydrochlorothiazide Oral tablet 20-12.5 mg take 1 tablet by oral route once daily atorvastatin Oral tablet 40 mg take 1 tablet (40 mg) by oral route once daily diltiazem HCl Oral capsule, extended release 360 mg take 1 capsule (360 mg) by oral route once daily Coumadin Oral tablet 5 mg take 1 tab. on Tue, and Sat. 2 tab all other days digoxin Oral tablet 250 mcg take 1 tablet (250 mcg) by oral route once daily timolol maleate Ophthalmic Drops 0.5 % flaxseed oil Oral capsule 1,000 mg take 1 capsule by oral route daily naproxen oral tablet 500 mg 03/28/2014 take 1 tablet (500 mg) by oral route 2 times per day with food Name Start Date Expiration Date SIG Comments econazole Topical Cream 1 % 05/04/2012 06/01/2012 apply to the affected and surrounding areas of skin by topical route once daily for 2 weeks Bactroban Topical Cream 2 % 09/22/2012 10/02/2012 apply a small amount to the affected area by topical route 3 times per day for 10 days amoxicillin oral tablet 875 mg 02/27/2013 03/13/2013 take 1 tablet (875 mg) by oral route every 12 hours for 7 days Zyrtec-D oral tablet extended release 12 hr 5-120 mg 07/20/2013 11/17/2013 take 1 tablet by oral route 2 times per day for 30 days Discontinued Name Start Date Discontinued Date SIG Comments pravatatin 11/06/2012 glucosamine hcl 11/06/2012 daily prednisone oral 05/07/2014 tramadol oral tablet 50 mg 11/27/2013 take 1 tablet by oral route As needed Problem List Description Status Onset Hypertension Active Colonic Polyps, Personal History of Active Vital Signs Date Time BP-Sys(mm[Hg] BP-Jaylin(mm[Hg]) HR(bpm) RR(rpm) Temp WT HT HC BMI BSA BMI Percentile O2 Sat(%) 07/04/2014 10:18:00 AM 110 mmHg 70 mmHg [...] of Procedures Date Ordered Description Order Status 05/04/2012 12:00 AM US EXAM OF HEAD AND NECK Reviewed 09/22/2012 12:00 AM REMOVE IMPACTED EAR WAX UNI Reviewed 12/04/2012 12:00 AM TD VACCINE NO PRSRV 7/> IM Reviewed 10/28/2013 12:00 AM TDAP VACCINE 7 YRS/> IM Reviewed 10/28/2013 12:00 AM THER/PROPH/DIAG INJ SC/IM Reviewed 05/07/2014 12:00 AM THER/PROPH/DIAG INJ SC/IM Reviewed 05/07/2014 12:00 AM REMOVE IMPACTED EAR WAX UNI Reviewed Results Summary Data and Description Results [...] 04/22/2014 8:03 AM PROTIME 25.40 secsINR 2.5 History Of Immunizations Name Date Admin Mfg Name Mfg Code Trade Name Lot# Route Inj Vis Given Vis Pub CVX Influenza 11/06/2012 sanofi pasteur PMC Fluzone [id number] Intramuscular Left Deltoid 11/06/2012 08/23/2011 141 Td 12/04/2012 sanofi pasteur PMC TENIVAC [id number] Intramuscular Left Deltoid 12/04/2012 03/16/2011 113 Tdap 10/28/2013 sanofi pasteur PMC ADACEL [id number] Intramuscular Right Upper Arm 10/28/2013 07/21/2012 115 Pneumococcal 11/21/2013 [facility] Prevnar 13 [id number] Intramuscular Left Deltoid 11/22/2013 2012 33 History [...] 10:22AM Seasonal allergies Jul 04 2014 10:22AM Payers Insurance Name Company Name Plan Name Plan Number Policy Number Policy Group Number Start Date [facility] [id number] N/A Medicare Part A Medicare Part A [id number] N/A [facility] [id number] N/A History of Encounters Visit Date Visit Type Provider 07/04/2014 Office visit Timothy Cruz MD 05/07/2014 Office visit Shira Joyce INDUSTRIAL SAFETY AND HEALTH SPECIALIST 05/06/2014 Voided Timothy Cruz MD 11/21/2013 Nurse visit Timothy Cruz MD 10/30/2013 Office visit Timothy Cruz MD 10/28/2013 Office visit Felisa Arita INDUSTRIAL SAFETY AND HEALTH SPECIALIST 07/20/2013 Office visit Timothy Cruz MD 05/10/2013 [facility] Lalitha Bender MD 02/27/2013 Office visit Timothy Cruz MD 01/03/2013 Nurse visit Timothy Cruz MD 12/04/2012 Office visit Timothy Cruz MD 12/01/2012 Office visit Timothy Cruz MD 11/06/2012 Office visit Timothy Cruz MD 09/25/2012 Office visit Timothy Cruz MD 09/22/2012 Office visit Phillip Kimbrough PA-C 05/04/2012 Office visit Timothy Cruz MD 04/26/2012 Office visit Darby Moss INDUSTRIAL SAFETY AND HEALTH SPECIALIST 07/12/2011 [facility] [place] MD 07/12/2011 [facility] Lalitha Bender MD 07/16/2009 Office visit Huang Abdi MD 07/10/2009 Surgery Huang Abdi MD 06/10/2009 Surgery Huang Abdi MD
--- OUTSIDE RECORDS SUMMARY | 2017-11-08 08:26 | XMS REPORT ---
Author Author Osei Mercado Organization [facility] Address [address] [place], [place] [address] Care Team Providers Care Firefighting Equipment Specialist Name Role Phone Osei Mercado PCP Timothy [...] 03/13/2015 12:00 AM Decadron, Per 1 Mg [facility]# [address]-80 Reviewed 03/13/2015 12:00 AM Depo-Medrol, Per 80 Mg [facility]#[address]-13 Reviewed 03/28/2015 12:00 AM SELF-MGMT EDUC & TRAIN 1 PT Reviewed 03/28/2015 12:00 AM Screening, Colonoscopy,Colorectal Reviewed 03/31/2015 12:00 AM ELECTROCARDIOGRAM COMPLETE Reviewed 03/31/2015 12:00 AM CHEST X-RAY 2VW FRONTAL&LATL Reviewed 05/06/2015 12:00 AM Decadron, Per 1 Mg [facility]# [address]-80 Reviewed 05/06/2015 12:00 AM Depo-Medrol 40mg Reviewed 05/06/2015 12:00 AM PROTHROMBIN TIME Reviewed 08/04/2015 12:00 AM Decadron, Per 1 Mg [facility]# [address]-89 Reviewed 08/04/2015 12:00 AM Depo-Medrol, Per 80 Mg [facility]#[address]-27 Reviewed 08/21/2015 12:00 AM MRI LOWER EXTREMITY W/O DYE Reviewed 10/28/2015 12:00 AM Toradol 60 Mg [facility]#4245-4977-49 Reviewed 10/28/2015 12:00 AM INFLUENZA VAC 4 [...] AM Flu Injection 3 Years And Above [facility]# [address]-48 RHC Reviewed 12/04/2012 12:00 AM TD VACCINE [...] 05/07/2014 12:00 AM Decadron, Per 1 Mg [facility]# [address]-33 Reviewed 05/07/2014 12:00 AM Depo-Medrol, Per 80 Mg [facility]#1389-4077-32 Reviewed 05/07/2014 12:00 AM REMOVE IMPACTED EAR WAX UNI Reviewed 07/04/2014 12:00 AM Decadron 8 mg [facility]# [address]-20 Reviewed 07/04/2014 12:00 AM Depo-Medrol 80 mg [facility]#[address]-19 Reviewed 08/16/2014 12:00 AM REMOVE IMPACTED EAR WAX UNI Reviewed Results Summary Date and Description Results 04/16/2015 6:50 AM PROTIME 20.50 secsINR 1.9 05/06/2015 2:05 PM PROTIME 17.20 secsINR 1.6 History Of Immunizations Name Date Admin Mfg Name Mfg Code Trade Name Lot# Route Inj Vis Given Vis Pub CVX Influenza 11/06/2012 sanofi pasteur PMC FLUZONE [id number] Intramuscular Left Deltoid 11/06/2012 08/23/2011 141 Td 12/04/2012 sanofi pasteur PMC Tenivac [id number] Intramuscular Left Deltoid 12/04/2012 03/16/2011 113 Tdap 10/28/2013 sanofi pasteur PMC ADACEL [id number] Intramuscular Right Upper Arm 10/28/2013 07/21/2012 115 X 11/21/2013 Nzgbv-Sujnqy-JmriwlyJamison WAL PREVNAR 13 [id number] Intramuscular Left Deltoid 11/22/2013 2012 33 Influenza 10/28/2015 sanofi pasteur PMC FLUZONE UI [id number] Intramuscular Right Deltoid 10/28/2015 09/27/2014 141 Pneumococcal 11/01/2016 [employer] MSD PNEUMOVAX 23 N [id number] Intramuscular Right Arm 12/02/2016 04/16/2014 33 Influenza [...] finger, initial encounter Jul 27 2017 8:24AM Payers Insurance Name Company Name Plan Name Plan Number Policy Number Policy Group Number Start Date [facility] [id number] N/A Medicare Part A Medicare Part A [id number] N/A Medicare Part B Medicare Secondary [id number] N/A Medicare Part B Medicare Of [place] [id number] N/A Medicare Part A Medicare - Lab/Xray [id number] N/A [facility] [id number] N/A History of Encounters Visit Date Visit Type Provider 08/02/2017 Office visit Osei Mercado DO 07/27/2017 Office visit Shira Joyce GEOLOGY PROFESSOR 07/05/2017 Office visit Osei Mercado DO 05/24/2017 Office visit Osei Mercado DO 05/17/2017 Office visit Timothy Cruz MD 09/23/2016 Office visit Timothy Cruz MD 08/04/2016 Office visit Timothy Cruz MD 06/28/2016 Office visit Timothy Cruz MD 03/26/2016 Office visit Timothy Cruz MD 01/06/2016 Office visit Timothy Cruz MD 11/28/2015 Office visit Araseli Ochoa GEOLOGY PROFESSOR 11/22/2015 Office visit Phillip Kimbrough PA-C 10/28/2015 Office visit Shira Joyce GEOLOGY PROFESSOR 08/21/2015 Office visit Timothy Cruz MD 08/18/2015 Hospital Isabel Townsend MD 08/18/2015 Hospital Lalitha Bender MD 08/16/2015 Office visit Phillip JAMESC 08/04/2015 Office visit Timothy Cruz MD 05/06/2015 Office visit Shira Joyce GEOLOGY PROFESSOR 04/21/2015 Hospital Stevan Frey DO 04/18/2015 Office visit Phillip JAMESC 03/28/2015 Office visit Stevan Frey DO 03/13/2015 Office visit Timothy Cruz MD 10/22/2014 Office visit Timothy Cruz MD 08/16/2014 Office visit Willy Gordillo GEOLOGY PROFESSOR 07/04/2014 Office visit Timothy Cruz MD 05/07/2014 Office visit 05/07/2014 Office visit Shira Joyce GEOLOGY PROFESSOR 05/06/2014 Voided Timothy Cruz MD 11/21/2013 Nurse visit Timothy Cruz MD 10/30/2013 Office visit Timothy Cruz MD 10/28/2013 Office visit Felisa Arita GEOLOGY PROFESSOR 07/20/2013 Office visit Timothy Cruz MD 05/10/2013 [...] Cruz MD 04/26/2012 Office visit Darby Moss GEOLOGY PROFESSOR 07/12/2011 Hospital Lalitha Bender MD 07/12/2011 Hospital Huang Abdi MD 07/16/2009 Office visit Huang Abdi MD 07/10/2009 Surgery Huang Abdi MD 06/10/2009 Surgery Huang Abdi MD
--- OUTSIDE RECORDS SUMMARY | 2017-11-08 08:27 | XMS REPORT ---
Author Author Timothy Cruz [facility] Address [address] [place], [place] [address] Care Team Providers Care Child Care Attendant Name Role Phone Timothy Cruz PCP Timothy Cruz PreferredProvider Allergies and Adverse Reactions Name Reaction Notes morphine Plan of Treatment Planned Activity Comments Planned Date Planned Time Plan/Goal CBC With Auto Differential 05/17/2017 12:00 AM CMP 05/17/2017 12:00 AM Lipid profile 05/17/2017 12:00 AM Protime 05/17/2017 12:00 AM Medications Active Name Start Date [...] and Sat. 2 tab all other days timolol maleate 0.5 % ophthalmic drops flaxseed [...] 1 tablet by oral route once daily digoxin 250 mcg oral tablet 04/15/2016 take [...] HC BMI BSA BMI Percentile O2 Sat(%) 05/17/2017 10:03:00 AM 122 mmHg 80 mmHg 112 bpm 16 rpm 96 F 222.375 lbs 70 in 31.91 kg/m2 2.23 m2 97 % 09/23/2016 2:03:00 PM 110 mmHg 72 mmHg 68 bpm 16 rpm 96.6 F 219 lbs 70 in 31.4229 kg/m 2.215 m 97 % 08/04/2016 8:25:00 AM 122 mmHg 78 mmHg 100 bpm 16 rpm 96.6 F 216.375 lbs 70 in 31.05 kg/m2 2.20 m2 98 % 06/28/2016 2:12:00 PM 126 mmHg 84 mmHg 88 bpm 14 rpm 97.6 F 224.125 lbs 70 in 32.1583 kg/m 2.2408 m 98 % 03/26/2016 8:29:00 AM 134 mmHg 64 mmHg 88 bpm 18 rpm 96.7 F 238 lbs 70 in 34.15 kg/m2 2.31 m2 97 % 01/06/2016 8:35:00 AM 116 mmHg 72 mmHg 104 bpm 16 rpm 97.1 F 233 lbs 70 in 33.4317 kg/m 2.2847 m 97 % 11/28/2015 6:19:00 PM 128 mmHg [...] 12:00 AM Decadron, Per 1 Mg [facility]# [address]-92 Reviewed 03/13/2015 12:00 AM Depo-Medrol, Per 80 Mg [place]#[address]-82 Reviewed 03/28/2015 12:00 AM SELF-MGMT EDUC & TRAIN 1 PT Reviewed 03/28/2015 12:00 AM Screening, Colonoscopy,Colorectal Reviewed 03/31/2015 12:00 AM ELECTROCARDIOGRAM COMPLETE Reviewed 03/31/2015 12:00 AM CHEST X-RAY 2VW FRONTAL&LATL Reviewed 05/06/2015 12:00 AM Decadron, Per 1 Mg [place]# [address]-68 Reviewed 05/06/2015 12:00 AM Depo-Medrol 40mg Reviewed 05/06/2015 12:00 AM PROTHROMBIN TIME Reviewed 08/04/2015 12:00 AM Decadron, Per 1 Mg ND# [address]-95 Reviewed 08/04/2015 12:00 AM Depo-Medrol, Per 80 Mg N[facility]#[address]-51 Reviewed 08/21/2015 12:00 AM MRI LOWER EXTREMITY W/O DYE Reviewed 10/28/2015 12:00 AM Toradol 60 Mg N[facility]#3904-3541-87 Reviewed 10/28/2015 12:00 AM INFLUENZA VAC 4 VALENT PRSRV FREE 3 YRS PLUS IM Reviewed 08/04/2016 12:00 AM Decadron 8mg Injection Reviewed 08/04/2016 12:00 AM Depo-Medrol 80mg Injection Reviewed 05/04/2012 12:00 AM US EXAM OF HEAD AND NECK Reviewed 09/22/2012 12:00 AM REMOVE IMPACTED EAR WAX UNI Reviewed 11/06/2012 12:00 AM Flu Injection 3 Years And Above [facility]# [address]-81 RHC Reviewed 12/04/2012 12:00 AM TD VACCINE [...] 12:00 AM Decadron, Per 1 Mg [facility]# [address]-27 Reviewed 05/07/2014 12:00 AM Depo-Medrol, Per 80 Mg [facility]#7490-4024-68 Reviewed 05/07/2014 12:00 AM REMOVE IMPACTED EAR WAX UNI Reviewed 07/04/2014 12:00 AM Decadron 8 mg [facility]# [address]-25 Reviewed 07/04/2014 12:00 AM Depo-Medrol 80 mg [facility]#[address]-38 Reviewed 08/16/2014 12:00 AM REMOVE IMPACTED EAR WAX UNI Reviewed Results Summary Date and Description Results 04/16/2015 6:50 AM PROTIME 20.50 secsINR 1.9 05/06/2015 2:05 PM PROTIME 17.20 secsINR 1.6 History Of Immunizations Name Date Admin Mfg Name Mfg Code Trade Name Lot# Route Inj Vis Given Vis Pub CVX Influenza 11/06/2012 sanofi pasteur PMC Fluzone [id number] Intramuscular Left Deltoid 11/06/2012 08/23/2011 141 Td 12/04/2012 sanofi pasteur PMC TENIVAC [id number] Intramuscular Left Deltoid 12/04/2012 03/16/2011 113 Tdap 10/28/2013 sanofi pasteur PMC ADACEL [id number] Intramuscular Right Upper Arm 10/28/2013 07/21/2012 115 X 11/21/2013 AleksandraJamison Pride 13 [id number] Intramuscular Left Deltoid 11/22/2013 2012 33 Influenza 10/28/2015 sanofi pasteur PMC Fluzone UI [id number] Intramuscular Right Deltoid 10/28/2015 09/27/2014 141 Pneumococcal 11/01/2016 Merck & [employer] Inc[employer] MSD Pneumovax 23 N [id number] Intramuscular Right Arm 12/02/2016 04/16/2014 33 Influenza 11/01/2016 sanofi pasteur PMC Fluzone High-Dose UI [id number] [id number] Intradermal Left Arm 11/01/2016 [...] (coronary artery disease) May 17 2017 10:05AM Payers Insurance Name Company Name Plan Name Plan Number Policy Number Policy Group Number Start Date [facility] [id number] N/A Medicare Part A Medicare Part A [id number] N/A Medicare Part B Medicare Secondary [id number] N/A Medicare Part B Medicare Of [place] [id number] N/A Medicare Part A Medicare - Lab/Xray [id number] N/A [facility] [id number] N/A History of Encounters Visit Date Visit Type Provider 05/17/2017 Office visit iTmothy Cruz MD 09/23/2016 Office visit Timothy Cruz MD 08/04/2016 Office visit Timothy Cruz MD 06/28/2016 Office visit Timothy Cruz MD 03/26/2016 Office visit Timothy Cruz MD 01/06/2016 Office visit Timothy Cruz MD 11/28/2015 Office visit Araseli Don PRODUCTION CONTROL SCHEDULER 11/22/2015 Office visit Phillip JAMESC 10/28/2015 Office visit Shira Joyce PRODUCTION CONTROL SCHEDULER 08/21/2015 Office visit Timothy Cruz MD 08/18/2015 Hospital Isabel Townsend MD 08/18/2015 Hospital Lalitha Bender MD 08/16/2015 Office visit Phillip JAMESC 08/04/2015 Office visit Timothy Cruz MD 05/06/2015 Office visit Shira Joyce PRODUCTION CONTROL SCHEDULER 04/21/2015 [facility] Stevan Frey DO 04/18/2015 Office visit Phillip PEÑA-C 03/28/2015 Office visit Stevan Frey DO 03/13/2015 Office visit Timothy Cruz MD 10/22/2014 Office visit Timothy Cruz MD 08/16/2014 Office visit Willy Gordillo PRODUCTION CONTROL SCHEDULER 07/04/2014 Office visit Timothy Cruz MD 05/07/2014 Office visit 05/07/2014 Office visit Shira Joyce PRODUCTION CONTROL SCHEDULER 05/06/2014 Voided Timothy Cruz MD 11/21/2013 Nurse visit Timothy Cruz MD 10/30/2013 Office visit Timotyh Cruz MD 10/28/2013 Office visit Felisa Arita PRODUCTION CONTROL SCHEDULER 07/20/2013 Office visit Timothy Cruz MD [...] Cruz MD 04/26/2012 Office visit Darby Moss PRODUCTION CONTROL SCHEDULER 07/12/2011 Hospital Lalitha Bender MD 07/12/2011 [facility] Huang Abdi MD 07/16/2009 Office visit Huang Abdi MD 07/10/2009 Surgery Huang Abdi MD 06/10/2009 Surgery Huang Abdi MD
--- OUTSIDE RECORDS SUMMARY | 2017-11-08 08:28 | XMS REPORT ---
Author Author Osei Mercado Organization [facility] Address [address] [place], [place] [address] Care Team Providers Care Mandarin Speaking Nanny Name Role Phone Osei Mercado PCP Timothy [...] 12:00 AM Decadron, Per 1 Mg [facility]# [address]-82 Reviewed 03/13/2015 12:00 AM Depo-Medrol, Per 80 Mg [facility]#[address]-75 Reviewed 03/28/2015 12:00 AM SELF-MGMT EDUC & TRAIN 1 PT Reviewed 03/28/2015 12:00 AM Screening, Colonoscopy,Colorectal Reviewed 03/31/2015 12:00 AM ELECTROCARDIOGRAM COMPLETE Reviewed 03/31/2015 12:00 AM CHEST X-RAY 2VW FRONTAL&LATL Reviewed 05/06/2015 12:00 AM Decadron, Per 1 Mg [facility]# [address]-47 Reviewed 05/06/2015 12:00 AM Depo-Medrol 40mg Reviewed 05/06/2015 12:00 AM PROTHROMBIN TIME Reviewed 08/04/2015 12:00 AM Decadron, Per 1 Mg [facility]# [address]-80 Reviewed 08/04/2015 12:00 AM Depo-Medrol, Per 80 Mg [facility]#[address]-40 Reviewed 08/21/2015 12:00 AM MRI LOWER EXTREMITY W/O DYE Reviewed 10/28/2015 12:00 AM Toradol 60 Mg [facility]#8248-8931-62 Reviewed 10/28/2015 12:00 AM INFLUENZA VAC 4 [...] Flu Injection 3 Years And Above [facility]# [address]-65 RHC Reviewed 12/04/2012 12:00 AM TD VACCINE [...] 12:00 AM Decadron, Per 1 Mg [facility]# [address]-45 Reviewed 05/07/2014 12:00 AM Depo-Medrol, Per 80 Mg [facility]#7971-0961-58 Reviewed 05/07/2014 12:00 AM REMOVE IMPACTED EAR WAX UNI Reviewed 07/04/2014 12:00 AM Decadron 8 mg [facility]# [address]-70 Reviewed 07/04/2014 12:00 AM Depo-Medrol 80 mg [facility]#[address]-35 Reviewed 08/16/2014 12:00 AM REMOVE IMPACTED EAR WAX UNI Reviewed Results Summary Date and Description Results 04/16/2015 6:50 AM PROTIME 20.50 secsINR 1.9 05/06/2015 2:05 PM PROTIME 17.20 secsINR 1.6 History Of Immunizations Name Date Admin Mfg Name Mfg Code Trade Name Lot# Route Inj Vis Given Vis Pub CVX Influenza 11/06/2012 sanofi pasteur PMC FLUZONE [id number] Intramuscular Left Deltoid 11/06/2012 08/23/2011 141 Td 12/04/2012 sanofi pasteur PMC Tenivac [id number] Intramuscular Left Deltoid 12/04/2012 03/16/2011 113 Tdap 10/28/2013 sanofi pasteur PMC ADACEL [id number] Intramuscular Right Upper Arm 10/28/2013 07/21/2012 115 X 11/21/2013 Fhlvd-Zfwzrm-UyynctuJamison WAL PREVNAR 13 [id number] Intramuscular Left Deltoid 11/22/2013 2012 33 Influenza 10/28/2015 sanofi pasteur PMC FLUZONE UI [id number] Intramuscular Right Deltoid 10/28/2015 09/27/2014 141 Pneumococcal 11/01/2016 Merck & [employer] Inc. MSD PNEUMOVAX 23 N [id number] Intramuscular Right Arm 12/02/2016 04/16/2014 33 Influenza [...] Policy Number Policy Group Number Start Date [facility] [id number] N/A Medicare Part A Medicare Part A [id number] N/A Medicare Part B Medicare Secondary [id number] N/A Medicare Part B Medicare Of [place] [id number] N/A Medicare Part A Medicare - Lab/Xray [id number] N/A [facility] [id number] N/A History of Encounters Visit Date Visit Type Provider 08/02/2017 Office visit Osei Mercado DO 07/27/2017 Office visit Shira Joyce WATCH INSPECTOR 07/05/2017 Office visit Osei Mercado DO 05/24/2017 Office visit Osei Mercado DO 05/17/2017 Office visit Timothy Cruz MD 09/23/2016 Office visit Timothy Cruz MD 08/04/2016 Office visit Timothy Cruz MD 06/28/2016 Office visit Timothy Cruz MD 03/26/2016 Office visit Timothy Cruz MD 01/06/2016 Office visit Timothy Cruz MD 11/28/2015 Office visit Araseli Ochoa WATCH INSPECTOR 11/22/2015 Office visit Phillip Kimbrough PA-C 10/28/2015 Office visit Shira Joyce WATCH INSPECTOR 08/21/2015 Office visit Timothy Cruz MD 08/18/2015 Hospital Isabel Townsend MD 08/18/2015 Hospital Lalitha Bender MD 08/16/2015 Office visit Phillip JAMESC 08/04/2015 Office visit Timothy Cruz MD 05/06/2015 Office visit Shira Joyce WATCH INSPECTOR 04/21/2015 Hospital Stevan Frey DO 04/18/2015 Office visit Phillip JAMESC 03/28/2015 Office visit Stevan Frey DO 03/13/2015 Office visit Timothy Cruz MD 10/22/2014 Office visit Timothy Cruz MD 08/16/2014 Office visit Willy Gordillo WATCH INSPECTOR 07/04/2014 Office visit Timothy Cruz MD 05/07/2014 Office visit 05/07/2014 Office visit Shira Joyce WATCH INSPECTOR 05/06/2014 Voided Timothy Cruz MD 11/21/2013 Nurse visit Timothy Cruz MD 10/30/2013 Office visit Timothy Cruz MD 10/28/2013 Office visit Felisa Arita WATCH INSPECTOR 07/20/2013 Office visit Timothy Cruz MD [...] Cruz MD 04/26/2012 Office visit Darby Moss WATCH INSPECTOR 07/12/2011 Hospital Lalitha Bender MD 07/12/2011 Hospital Huang Abdi MD 07/16/2009 Office visit Huang Abdi MD 07/10/2009 Surgery Huang Abdi MD 06/10/2009 Surgery Huang Abdi MD
--- OUTSIDE RECORDS SUMMARY | 2017-11-08 08:29 | XMS REPORT ---
Author Author Shira Joyce Organization [facility] Address [address] [place], [place] [address] Care Team Providers Care Pedigree Tracer Name Role Phone Shira Joyce PCP Unavailable [...] by oral route 2 times per day Name Start Date Expiration Date SIG Comments [...] HC BMI BSA BMI Percentile O2 Sat(%) 10/28/2015 9:19:00 AM 130 mmHg 72 mmHg [...] 1 Mg [facility]# [address]-45 Reviewed 03/13/2015 12:00 AM Depo-Medrol, Per 80 Mg [facility]#[address]-56 Reviewed 03/28/2015 12:00 AM SELF-MGMT EDUC & TRAIN 1 PT Reviewed 03/28/2015 12:00 AM Screening, Colonoscopy,Colorectal Reviewed 03/31/2015 12:00 AM ELECTROCARDIOGRAM COMPLETE Reviewed 03/31/2015 12:00 AM CHEST X-RAY 2VW FRONTAL&LATL Reviewed 05/06/2015 12:00 AM Decadron, Per 1 Mg [facility]# [address]-87 Reviewed 05/06/2015 12:00 AM Depo-Medrol 40mg Reviewed 05/06/2015 12:00 AM PROTHROMBIN TIME Reviewed 08/04/2015 12:00 AM Decadron, Per 1 Mg [facility]# [address]-59 Reviewed 08/04/2015 12:00 AM Depo-Medrol, Per 80 Mg [facility]#[address]-98 Reviewed 08/21/2015 12:00 AM MRI LOWER EXTREMITY W/O DYE Returned 10/28/2015 12:00 AM Toradol 60 Mg [facility]#6585-0651-84 Reviewed 10/28/2015 12:00 AM INFLUENZA VAC 4 VALENT PRSRV FREE 3 YRS PLUS IM Reviewed 05/04/2012 12:00 AM US EXAM OF HEAD AND NECK Reviewed 09/22/2012 12:00 AM REMOVE IMPACTED EAR WAX UNI Reviewed 11/06/2012 12:00 AM Flu Injection 3 Years And Above [facility]# [address]-42 RHC Reviewed 12/04/2012 12:00 AM TD VACCINE [...] 1 Mg [facility]# [address]-02 Reviewed 05/07/2014 12:00 AM Depo-Medrol, Per 80 Mg [facility]#4972-9254-89 Reviewed 05/07/2014 12:00 AM REMOVE IMPACTED EAR WAX UNI Reviewed 07/04/2014 12:00 AM Decadron 8 mg [facility]# [address]-80 Reviewed 07/04/2014 12:00 AM Depo-Medrol 80 mg [facility]#[address]-56 Reviewed Results Summary Data and Description Results [...] 10/22/2015 7:00 AM PROTIME 25.50 secsINR 2.3 History Of Immunizations Name Date Admin Mfg Name Mfg Code Trade Name Lot# Route Inj Vis Given Vis Pub CVX Influenza 11/06/2012 sanofi pasteur PMC Fluzone [id number] Intramuscular Left Deltoid 11/06/2012 08/23/2011 141 Td 12/04/2012 sanofi pasteur PMC TENIVAC [id number] Intramuscular Left Deltoid 12/04/2012 03/16/2011 113 Tdap 10/28/2013 sanofi pasteur PMC ADACEL [id number] Intramuscular Right Upper Arm 10/28/2013 07/21/2012 115 X 11/21/2013 Slczj-Srdzhy-Ocwhexk-Praxis WAL Prevnar 13 [id number] Intramuscular Left Deltoid 11/22/2013 2012 33 Influenza 10/28/2015 [facility] [id number] Intramuscular Right [...] Bilateral impacted cerumen Oct 28 2015 9:21AM Payers Insurance Name Company Name Plan Name Plan Number Policy Number Policy Group Number Start Date [facility] [id number] N/A Medicare Part A Medicare Part A [id number] N/A Medicare Part B Medicare Secondary [id number] N/A Medicare Part B Medicare Of [place] [id number] N/A Medicare Part A Medicare - Lab/Xray [id number] N/A BCBS Bcbs [facility] [id number] N/A History of Encounters Visit Date Visit Type Provider 10/28/2015 Office visit Shira Joyce GREENSKEEPER LABORER 08/21/2015 Office visit Timothy Cruz MD 08/18/2015 [facility] Isabel Townsend MD 08/16/2015 Office visit Phillip Kimbrough PA-C 08/04/2015 Office visit Timothy Cruz MD 05/06/2015 Office visit Shira Joyce GREENSKEEPER LABORER 04/21/2015 Hospital Stevan Frey DO 04/18/2015 Office visit Phillip Kimbrough PA-C 03/28/2015 Office visit Stevan Frey DO 03/13/2015 Office visit Timothy Cruz MD 10/22/2014 Office visit Timothy Cruz MD 08/16/2014 Office visit Willy Gordillo GREENSKEEPER LABORER 07/04/2014 Office visit Timothy Cruz MD 05/07/2014 Office visit 05/07/2014 Office visit Shira Joyce GREENSKEEPER LABORER 05/06/2014 Voided Timothy Cruz MD 11/21/2013 Nurse visit Timothy Cruz MD 10/30/2013 Office visit Timothy Cruz MD 10/28/2013 Office visit Felisa Arita GREENSKEEPER LABORER 07/20/2013 Office visit Timothy Cruz MD 05/10/2013 [...] Cruz MD 04/26/2012 Office visit Darby Moss GREENSKEEPER LABORER 07/12/2011 Hospital Lalitha Bender MD 07/12/2011 Hospital Huang Abdi MD 07/16/2009 Office visit Huang Abdi MD 07/10/2009 Surgery Huang Abdi MD 06/10/2009 Surgery Huang Abdi MD
--- OUTSIDE RECORDS SUMMARY | 2017-11-08 08:29 | XMS REPORT ---
Author Author Timothy Cruz [facility] Address [address] [place], [place] [address] Care Team Providers Care Woods Boss Name Role Phone Timothy Cruz PCP Unavailable Timothy Cruz PreferredProvider Unavailable Allergies and Adverse Reactions Name Reaction [...] every 6 hours as needed for pain Flonase Allergy Relief 50 mcg/actuation nasal spray,suspension [...] days Mobic 15 mg oral tablet 01/06/2016 take 1 tablet (15 mg) by oral route once daily Tivorbex 40 mg oral capsule 02/05/2016 take 1 capsule (40 mg) by oral route 2 times per day prednisone 20 mg oral tablet 03/26/2016 04/02/2016 take 1 tablet (20 mg) by oral [...] with food and water for 30 days Discontinued Name Start Date [...] HC BMI BSA BMI Percentile O2 Sat(%) 03/26/2016 8:29:00 AM 134 mmHg 64 mmHg [...] 03/13/2015 12:00 AM Decadron, Per 1 Mg [facility]# [address]-61 Reviewed 03/13/2015 12:00 AM Depo-Medrol, Per 80 Mg [facility]#[address]-29 Reviewed 03/28/2015 12:00 AM SELF-MGMT EDUC & TRAIN 1 PT Reviewed 03/28/2015 12:00 AM Screening, Colonoscopy,Colorectal Reviewed 03/31/2015 12:00 AM ELECTROCARDIOGRAM COMPLETE Reviewed 03/31/2015 12:00 AM CHEST X-RAY 2VW FRONTAL&LATL Reviewed 05/06/2015 12:00 AM Decadron, Per 1 Mg [facility]# [address]-19 Reviewed 05/06/2015 12:00 AM Depo-Medrol 40mg Reviewed 05/06/2015 12:00 AM PROTHROMBIN TIME Reviewed 08/04/2015 12:00 AM Decadron, Per 1 Mg [facility]# [address]-13 Reviewed 08/04/2015 12:00 AM Depo-Medrol, Per 80 Mg [facility]#[address]-00 Reviewed 08/21/2015 12:00 AM MRI LOWER EXTREMITY W/O DYE Returned 10/28/2015 12:00 AM Toradol [address] [facility]#9067-7705-47 Reviewed 10/28/2015 12:00 AM INFLUENZA VAC 4 VALENT PRSRV FREE 3 YRS PLUS IM Reviewed 05/04/2012 12:00 AM US EXAM OF HEAD AND NECK Reviewed 09/22/2012 12:00 AM REMOVE IMPACTED EAR WAX UNI Reviewed 11/06/2012 12:00 AM Flu Injection 3 Years And Above [facility]# [address]-73 RHC Reviewed 12/04/2012 12:00 AM TD VACCINE [...] 05/07/2014 12:00 AM Decadron, Per [address] [facility]# [address]-40 Reviewed 05/07/2014 12:00 AM Depo-Medrol, Per [address] [facility]#5252-8628-24 Reviewed 05/07/2014 12:00 AM REMOVE IMPACTED EAR WAX UNI Reviewed 07/04/2014 12:00 AM Decadron [address] [facility]# [address]-82 Reviewed 07/04/2014 12:00 AM Depo-Medrol [address] [facility]#[address]-95 Reviewed Results Summary Data and Description Results 07/12/2011 8:15 AM GLUCOSE 96.0 mg/dLSODIUM 137.0 mmol/LPOTASSIUM 4.80 mmol/ LCHLORIDE 102.0 mmol/LCO2 25.0 mmol/LBUN 21.0 mg/dLCREATININE 1.40 mg/dLSGOT/ AST 20.0 IU/LSGPT/ALT 29.0 IU/LALK PHOS 47.0 IU/LTOTAL PROTEIN 6.40 g/dLALBUMIN 4.20 g/dLTOTAL BILI 1.10 mg/dLCALCIUM 9.10 mg/dLAGE 66 GFR NonAA 50 GFR AA 61 eGFR 50 eGFR AA* 60 WBC 6.7 RBC 4.93 HGB 15.60 g/dLHCT 48.0 %MCV 97.0 fLMCH 31.60 pgMCHC 32.50 g/dLRDW SD 49 RDW CV 13.60 %MPV 11.0 fLPLT 211 NRBC# 0.00 NRBC% 0.0 %NEUT 72.50 %%LYMP 19.10 %%MONO 7.10 %%EOS 0.90 %%BASO 0.40 %#NEUT 4.88 #LYMP 1.29 #MONO 0.48 #EOS 0.06 #BASO 0.03 MANUAL DIFF NOT IND MAGNESIUM 2.80 mg/dLBNP 192.0 pg/mL 06/20/2013 7:30 [...] TRIGLYCERIDES 102.0 mg/ dLCHOLESTEROL 119.0 mg/dLHDL 37.0 mg/dLTOT CHOL/HDL 3.2 LDL (CALC) 62.0 mg/ dLGLUCOSE 97.0 mg/dLSODIUM 141.0 mmol/LPOTASSIUM 4.10 mmol/LCHLORIDE 107.0 mmol/ LCO2 23.0 mmol/LBUN 13.0 mg/dLCREATININE 1.0 mg/dLSGOT/AST 14.0 IU/LSGPT/ALT 19.0 IU/LALK PHOS 59.0 IU/LTOTAL PROTEIN 6.50 g/dLALBUMIN 4.20 g/dLTOTAL BILI 0.70 mg/dLCALCIUM 9.50 mg/dLAGE 70 GFR NonAA 73 GFR AA 88 eGFR >60 mL/min/1.73m eGFR AA* >60 10/02/2015 7:10 AM PROTIME 21.20 secsINR 1.9 10/13/2015 7:00 AM PROTIME 43.40 secsINR 3.9 10/16/2015 7:55 AM PROTIME 16.70 secsINR 1.5 10/22/2015 7:00 AM PROTIME 25.50 secsINR 2.3 11/05/2015 7:00 AM PROTIME 34.40 secsINR 3.1 11/17/2015 7:05 AM PROTIME 21.10 secsINR 1.9 11/28/2015 7:00 AM PROTIME 30.10 secsINR 2.7 12/19/2015 7:10 AM PROTIME 25.60 secsINR 2.3 01/05/2016 7:05 AM PROTIME 20.10 secsINR 1.8 01/20/2016 7:10 AM PROTIME 26.70 secsINR 2.4 02/11/2016 7:05 AM PROTIME 26.50 secsINR 2.4 03/10/2016 7:15 AM PROTIME 26.90 secsINR 2.4 History Of Immunizations Name Date Admin Mfg Name Mfg Code Trade Name Lot# Route Inj Vis Given Vis Pub CVX Influenza 11/06/2012 [facility] Fluzone [id number] Intramuscular Left Deltoid 11/06/2012 08/23/2011 141 Td 12/04/2012 [facility] TENIVAC [id number] Intramuscular Left Deltoid 12/04/2012 03/16/2011 113 Tdap 10/28/2013 [facility] ADACEL [id number] Intramuscular Right Upper Arm 10/28/2013 07/21/2012 115 X 11/21/2013 Okyct-Hheajr-Msrpkus-Prashefali WAL Prevnar 13 [id number] Intramuscular Left Deltoid 11/22/2013 2012 33 Influenza 10/28/2015 [facility] PMC Fluzone [id number] Intramuscular Right Deltoid [...] tube disorder, right Mar 26 2016 8:36AM Payers Insurance Name Company Name Plan Name Plan Number Policy Number Policy Group Number Start Date [facility] [id number] N/A Medicare Part A Medicare Part A [id number] N/A Medicare Part B Medicare Secondary [id number] N/A Medicare Part B Medicare Of [place] [id number] N/A Medicare Part A Medicare - Lab/Xray [id number] N/A [facility] [id number] N/A History of Encounters Visit Date Visit Type Provider 03/26/2016 Office visit Timothy Cruz MD 01/06/2016 Office visit Timothy Cruz MD 11/28/2015 Office visit Araseli Ochoa PATIENT ACCOUNTS COORDINATOR 11/22/2015 Office visit Phillip Kimbrough PA-C 10/28/2015 Office visit Shira Joyce PATIENT ACCOUNTS COORDINATOR 08/21/2015 Office visit Timothy Cruz MD 08/18/2015 Hospital Isabel Townsend MD 08/18/2015 [facility] Lalitha Bender MD 08/16/2015 Office visit Phillip Kimbrough PA-C 08/04/2015 Office visit Timothy Cruz MD 05/06/2015 Office visit Shira Joyce PATIENT ACCOUNTS COORDINATOR 04/21/2015 [facility] Stevan Frey DO 04/18/2015 Office visit Phillip JAMESC 03/28/2015 Office visit Stevan Frey DO 03/13/2015 Office visit Timothy Cruz MD 10/22/2014 Office visit Timothy Cruz MD 08/16/2014 Office visit Willy Gordillo PATIENT ACCOUNTS COORDINATOR 07/04/2014 Office visit Timothy Cruz MD 05/07/2014 Office visit 05/07/2014 Office visit Shira Joyce PATIENT ACCOUNTS COORDINATOR 05/06/2014 Voided Timothy Cruz MD 11/21/2013 Nurse visit Timothy Cruz MD 10/30/2013 Office visit Timothy Cruz MD 10/28/2013 Office visit Felisa Arita PATIENT ACCOUNTS COORDINATOR 07/20/2013 Office visit Timothy Cruz MD 05/10/2013 [...] 04/26/2012 Office visit Darby Moss APRN 07/12/2011 [facility] Lalitha Bender MD 07/12/2011 [facility] Huang Abdi MD 07/16/2009 Office visit Huang Abdi MD 07/10/2009 Surgery Huang Abdi MD 06/10/2009 Surgery Huang Abdi MD
[2017-11-08 08:30] VITALS: BP 126/83
--- OUTSIDE RECORDS SUMMARY | 2017-11-08 08:30 | XMS REPORT ---
Author Author Osei Mercado Organization [facility] Address [address] [place], [place] [address] Care Team Providers Care Hog Stomach Preparer Name Role Phone Osei Mercado PCP Timothy [...] HC BMI BSA BMI Percentile O2 Sat(%) 05/24/2017 9:05:00 AM 122 mmHg 72 mmHg [...] 03/13/2015 12:00 AM Decadron, Per 1 Mg [facility]# [address]-66 Reviewed 03/13/2015 12:00 AM Depo-Medrol, Per 80 Mg [facility]#[address]-74 Reviewed 03/28/2015 12:00 AM SELF-MGMT EDUC & TRAIN 1 PT Reviewed 03/28/2015 12:00 AM Screening, Colonoscopy,Colorectal Reviewed 03/31/2015 12:00 AM ELECTROCARDIOGRAM COMPLETE Reviewed 03/31/2015 12:00 AM CHEST X-RAY 2VW FRONTAL&LATL Reviewed 05/06/2015 12:00 AM Decadron, Per 1 Mg [facility]# [address]-49 Reviewed 05/06/2015 12:00 AM Depo-Medrol 40mg Reviewed 05/06/2015 12:00 AM PROTHROMBIN TIME Reviewed 08/04/2015 12:00 AM Decadron, Per 1 Mg [place]# [address]-44 Reviewed 08/04/2015 12:00 AM Depo-Medrol, Per 80 Mg [facility]#[address]-05 Reviewed 08/21/2015 12:00 AM MRI LOWER EXTREMITY W/O DYE Reviewed 10/28/2015 12:00 AM Toradol 60 Mg [place]#5028-1729-46 Reviewed 10/28/2015 12:00 AM INFLUENZA VAC 4 [...] AM Flu Injection 3 Years And Above [facility]# [address]-12 RHC Reviewed 12/04/2012 12:00 AM TD VACCINE [...] 05/07/2014 12:00 AM Decadron, Per 1 Mg [facility]# [address]-40 Reviewed 05/07/2014 12:00 AM Depo-Medrol, Per 80 Mg [facility]#1578-5946-53 Reviewed 05/07/2014 12:00 AM REMOVE IMPACTED EAR WAX UNI Reviewed 07/04/2014 12:00 AM Decadron 8 mg [facility]# [address]-24 Reviewed 07/04/2014 12:00 AM Depo-Medrol 80 mg [facility]#[address]-93 Reviewed 08/16/2014 12:00 AM REMOVE IMPACTED EAR WAX UNI Reviewed Results Summary Date and Description Results 04/16/2015 6:50 AM PROTIME 20.50 secsINR 1.9 05/06/2015 2:05 PM PROTIME 17.20 secsINR 1.6 History Of Immunizations Name Date Admin Mfg Name Mfg Code Trade Name Lot# Route Inj Vis Given Vis Pub CVX Influenza 11/06/2012 sanofi pasteur PMC Fluzone [id number] Intramuscular Left Deltoid 11/06/2012 08/23/2011 141 Td 12/04/2012 sanofi pasteur PMC TENIVAC [id number] Intramuscular Left Deltoid 12/04/2012 03/16/2011 113 Tdap 10/28/2013 sanofi pasteur PMC ADACEL [id number] Intramuscular Right Upper Arm 10/28/2013 07/21/2012 115 X 11/21/2013 [facility] Prevnar 13 [id number] Intramuscular Left Deltoid 11/22/2013 2012 33 Influenza 10/28/2015 sanofi pasteur PMC Fluzone UI [id number] Intramuscular Right Deltoid 10/28/2015 09/27/2014 141 Pneumococcal 11/01/2016 [employer] MSD Pneumovax 23 N [id number] Intramuscular Right Arm 12/02/2016 04/16/2014 33 Influenza [...] left, initial encounter May 24 2017 9:15AM Payers Insurance Name Company Name Plan Name Plan Number Policy Number Policy Group Number Start Date [facility] [id number] N/A Medicare Part A Medicare Part A [id number] N/A Medicare Part B Medicare Secondary [id number] N/A Medicare Part B Medicare [facility] [id number] N/A Medicare Part A Medicare - Lab/Xray [id number] N/A BCBS Bcbs [facility] [id number] N/A History of Encounters Visit Date Visit Type Provider 05/24/2017 Office visit Oseicameron Mercado DO 05/17/2017 Office visit Timothy Cruz MD 09/23/2016 Office visit Timothy Cruz MD 08/04/2016 Office visit Timothy Cruz MD 06/28/2016 Office visit Timothy Cruz MD 03/26/2016 Office visit Timothy Cruz MD 01/06/2016 Office visit Timothy Cruz MD 11/28/2015 Office visit Araseli Ochoa FOUNTAIN WAITRESS/WAITER 11/22/2015 Office visit Phillip Kimbrough PA-C 10/28/2015 Office visit Shira Joyce FOUNTAIN WAITRESS/WAITER 08/21/2015 Office visit Timothy Cruz MD 08/18/2015 Hospital Isabel Townsend MD 08/18/2015 [facility] Lalitha Bender MD 08/16/2015 Office visit Phillip Kimbrough PA-C 08/04/2015 Office visit Timothy Cruz MD 05/06/2015 Office visit Shira Joyce FOUNTAIN WAITRESS/WAITER 04/21/2015 [facility] Stevan Frey DO 04/18/2015 Office visit Phillip Kimbrough PA-C 03/28/2015 Office visit Stevan Frey DO 03/13/2015 Office visit Timothy Cruz MD 10/22/2014 Office visit Timothy Cruz MD 08/16/2014 Office visit Willy Gordillo FOUNTAIN WAITRESS/WAITER 07/04/2014 Office visit Timothy Cruz MD 05/07/2014 Office visit 05/07/2014 Office visit Shira Joyce FOUNTAIN WAITRESS/WAITER 05/06/2014 Voided Timothy Cruz MD 11/21/2013 Nurse visit Timothy Cruz MD 10/30/2013 Office visit Timothy Cruz MD 10/28/2013 Office visit Felisa Arita FOUNTAIN WAITRESS/WAITER 07/20/2013 Office visit Timothy Cruz MD 05/10/2013 [...] 04/26/2012 Office visit Darby Moss APRN 07/12/2011 [facility] Lalitha Bender MD 07/12/2011 [facility] Huang Abdi MD 07/16/2009 Office visit Huang Abdi MD 07/10/2009 Surgery Huang Abdi MD 06/10/2009 Surgery Huang Abdi MD
--- OUTSIDE RECORDS SUMMARY | 2017-11-08 08:31 | XMS REPORT ---
Author Author Timothy Cruz [facility] Address [address] [place], [place] [address] Care Team Providers Care Shop Girl Name Role Phone Timothy Cruz PCP Unavailable Allergies and Adverse Reactions Name Reaction Notes NO KNOWN DRUG ALLERGIES Plan of Treatment Not available. Medications Active Name Start Date Estimated Completion Date SIG Comments Lisinopril Oral one daily omeprazole 20 mg oral capsule,delayed release(DR/EC) Fish Oil 300 mg oral capsule take 2 capsules by oral route once glucosamine sulfate 2KCl 1,000 mg oral tablet take 2 tablets by oral route calcium and citrate and vitamin d pot-chloride 10 meq 11/06/2012 1 tablet daily lisinopril-hydrochlorothiazide 20-12.5 mg oral tablet take 1 [...] Start Date Expiration Date SIG Comments econazole 1 % topical cream 05/04/2012 06/01/2012 apply to the affected and surrounding areas of skin by topical route once daily for 2 weeks Bactroban 2 % topical cream 09/22/2012 10/02/2012 apply a small amount to the affected area by topical route 3 times per day for 10 days amoxicillin 875 mg oral tablet 02/27/2013 03/13/2013 [...] HC BMI BSA BMI Percentile O2 Sat(%) 03/13/2015 8:27:00 AM 112 mmHg 76 mmHg [...] AM Flu Injection 3 Years And Above [facility]# [address]-67 RHC Reviewed 12/04/2012 12:00 AM TD VACCINE [...] 05/07/2014 12:00 AM Decadron, Per 1 Mg [facility]# [address]-28 Reviewed 05/07/2014 12:00 AM Depo-Medrol, Per 80 Mg [facility]#4876-8281-07 Reviewed 05/07/2014 12:00 AM REMOVE IMPACTED EAR WAX UNI Reviewed 07/04/2014 12:00 AM Decadron 8 mg [facility]# [address]-68 Reviewed 07/04/2014 12:00 AM Depo-Medrol 80 mg [facility]#[address]-79 Reviewed Results Summary Data and Description Results [...] 03/11/2015 7:10 AM PROTIME 38.50 secsINR 3.7 History Of Immunizations Name Date Admin Mfg Name Mfg Code Trade Name Lot# Route Inj Vis Given Vis Pub CVX Influenza 11/06/2012 sanofi pasteur PMC Fluzone [id number] Intramuscular Left Deltoid 11/06/2012 08/23/2011 141 Td 12/04/2012 sanofi pasteur PMC TENIVAC [id number] Intramuscular Left Deltoid 12/04/2012 03/16/2011 113 Tdap 10/28/2013 sanofi pasteur PMC ADACEL [id number] Intramuscular Right Upper Arm 10/28/2013 07/21/2012 115 Pneumococcal 11/21/2013 Hglxv-Tljhem-MxxjyqjJamison [facility] Prevnar 13 [id number] Intramuscular Left Deltoid 11/22/2013 2012 33 History [...] strain, initial encounter Mar 13 2015 8:34AM Payers Insurance Name Company Name Plan Name Plan Number Policy Number Policy Group Number Start Date [facility] [id number] N/A Medicare Part A Medicare Part A [id number] N/A Medicare Part B Medicare Secondary [id number] [id number] N/A History of Encounters Visit Date Visit Type Provider 03/13/2015 Office visit Timothy Cruz MD 10/22/2014 Office visit Timothy Cruz MD 08/16/2014 Office visit Willy Gordillo TRICOT KNITTING MACHINE OPERATOR 07/04/2014 Office visit Timothy Cruz MD 05/07/2014 Office visit 05/07/2014 Office visit Shira Joyce TRICOT KNITTING MACHINE OPERATOR 05/06/2014 Voided Timothy Cruz MD 11/21/2013 Nurse visit Timothy Cruz MD 10/30/2013 Office visit Timothy Cruz MD 10/28/2013 Office visit Felisa Arita TRICOT KNITTING MACHINE OPERATOR 07/20/2013 Office visit Timothy Cruz MD [...]
--- OUTSIDE RECORDS SUMMARY | 2017-11-08 08:31 | XMS REPORT ---
Author Author Timothy Cruz [facility] Address [address] [place], [place] [address] Care Team Providers Care Spinning Machine Operator Name Role Phone Timothy Cruz PCP Unavailable Allergies and Adverse Reactions Name Reaction Notes NO KNOWN DRUG ALLERGIES Plan of Treatment Planned Activity Comments Planned Date Planned Time Plan/Goal MRI LOWER EXTREMITY W/O DYE 08/21/2015 12:00 AM Medications Active Name Start Date [...] each nostril by intranasal route once daily Valium 5 mg oral tablet 08/04/2015 10/03/2015 take 1 tablet by oral route once a day (at bedtime) as needed for 30 days Movantik 25 mg oral tablet 08/21/2015 08/28/2015 take 1 tablet (25 mg) by oral route once daily in the morning for 7 days Name Start Date Expiration [...] HC BMI BSA BMI Percentile O2 Sat(%) 08/21/2015 10:26:00 AM 130 mmHg 88 mmHg [...] 03/13/2015 12:00 AM Decadron, Per 1 Mg [facility]# [address]-10 Reviewed 03/13/2015 12:00 AM Depo-Medrol, Per 80 Mg [facility]#[address]-71 Reviewed 03/28/2015 12:00 AM SELF-MGMT EDUC & TRAIN 1 PT Reviewed 03/28/2015 12:00 AM Screening, Colonoscopy,Colorectal Reviewed 03/31/2015 12:00 AM ELECTROCARDIOGRAM COMPLETE Reviewed 03/31/2015 12:00 AM CHEST X-RAY 2VW FRONTAL&LATL Reviewed 05/06/2015 12:00 AM Decadron, Per 1 Mg [facility]# [address]-42 Reviewed 05/06/2015 12:00 AM Depo-Medrol 40mg Reviewed 05/06/2015 12:00 AM PROTHROMBIN TIME Reviewed 08/04/2015 12:00 AM Decadron, Per 1 Mg [facility]# [address]-09 Reviewed 08/04/2015 12:00 AM Depo-Medrol, Per 80 Mg [facility]#[address]-26 Reviewed 05/04/2012 12:00 AM US EXAM OF HEAD AND NECK Reviewed 09/22/2012 12:00 AM REMOVE IMPACTED EAR WAX UNI Reviewed 11/06/2012 12:00 AM Flu Injection 3 Years And Above [facility]# [address]-96 RHC Reviewed 12/04/2012 12:00 AM TD VACCINE [...] 05/07/2014 12:00 AM Decadron, Per 1 Mg [facility]# [address]-03 Reviewed 05/07/2014 12:00 AM Depo-Medrol, Per 80 Mg [facility]#6615-9750-78 Reviewed 05/07/2014 12:00 AM REMOVE IMPACTED EAR WAX UNI Reviewed 07/04/2014 12:00 AM Decadron 8 mg [facility]# [address]-40 Reviewed 07/04/2014 12:00 AM Depo-Medrol 80 mg [facility]#[address]-53 Reviewed Results Summary Data and Description Results [...] TROPONIN-I AD <0.04 ng/mLLACTIC ACID 2.2 mmol/L History Of Immunizations Name Date Admin Mfg Name Mfg Code Trade Name Lot# Route Inj Vis Given Vis Pub CVX Influenza 11/06/2012 sanofi pasteur PMC Fluzone [id number] Intramuscular Left Deltoid 11/06/2012 08/23/2011 141 Td 12/04/2012 sanofi pasteur PMC TENIVAC [id number] Intramuscular Left Deltoid 12/04/2012 03/16/2011 113 Tdap 10/28/2013 sanofi pasteur PMC ADACEL [id number] Intramuscular Right Upper Arm 10/28/2013 07/21/2012 115 X 11/21/2013 Xhkag-Ullgfx-CdxelcgPrashefali WAL Prevnar 13 [id number] Intramuscular Left Deltoid 11/22/2013 2012 33 History [...] Leg pain, left Aug 21 2015 10:37AM Payers Insurance Name Company Name Plan Name Plan Number Policy Number Policy Group Number Start Date [facility] [id number] N/A Medicare Part A Medicare Part A [id number] N/A Medicare Part B Medicare Secondary [id number] N/A Medicare Part B Medicare Of [place] [id number] N/A Medicare Part A Medicare - Lab/Xray [id number] N/A [facility] [id number] N/A History of Encounters Visit Date Visit Type Provider 08/21/2015 Office visit Timothy Cruz MD 08/16/2015 Office visit Phillip Kimbrough PA-C 08/04/2015 Office visit Timothy Cruz MD 05/06/2015 Office visit Shira Joyce TRANSPLANT COORDINATOR 04/21/2015 Hospital Stevan Frey DO 04/18/2015 Office visit Phillip Kimbrough PA-C 03/28/2015 Office visit Stevan Frey DO 03/13/2015 Office visit Timothy Cruz MD 10/22/2014 Office visit Timothy Cruz MD 08/16/2014 Office visit Willy Gordillo TRANSPLANT COORDINATOR 07/04/2014 Office visit Timothy Cruz MD 05/07/2014 Office visit 05/07/2014 Office visit Shira Joyce TRANSPLANT COORDINATOR 05/06/2014 Voided Timothy Cruz MD 11/21/2013 Nurse visit Timothy Cruz MD 10/30/2013 Office visit Timothy Cruz MD 10/28/2013 Office visit Felisa Arita TRANSPLANT COORDINATOR 07/20/2013 Office visit Timothy Cruz MD [...] Cruz MD 04/26/2012 Office visit Darby Moss TRANSPLANT COORDINATOR 07/12/2011 Hospital Lalitha Bender MD 07/12/2011 Hospital Huang Abdi MD 07/16/2009 Office visit Huang Abdi MD 07/10/2009 Surgery Huang Abdi MD 06/10/2009 Surgery Huang Abdi MD
--- OUTSIDE RECORDS SUMMARY | 2017-11-08 08:32 | XMS REPORT ---
Author Author Shira Joyce Organization [facility] Address [address] [place], [place] [address] Care Team Providers Care Port Steward Name Role Phone Shira Joyce PCP Unavailable [...] 03/13/2015 12:00 AM Decadron, Per [address] [facility]# [address]-92 Reviewed 03/13/2015 12:00 AM Depo-Medrol, Per [address] [facility]#[address]-40 Reviewed 03/28/2015 12:00 AM SELF-MGMT EDUC & TRAIN 1 PT Reviewed 03/28/2015 12:00 AM Screening, Colonoscopy,Colorectal Reviewed 03/31/2015 12:00 AM ELECTROCARDIOGRAM COMPLETE Reviewed 03/31/2015 12:00 AM CHEST X-RAY 2VW FRONTAL&LATL Reviewed 05/06/2015 12:00 AM Decadron, Per [address] [facility]# [address]-76 Reviewed 05/06/2015 12:00 AM Depo-Medrol 40mg Reviewed 05/06/2015 12:00 AM PROTHROMBIN TIME Reviewed 08/04/2015 12:00 AM Decadron, Per [address] [facility]# [address]-13 Reviewed 08/04/2015 12:00 AM Depo-Medrol, Per [address] [facility]#[address]-02 Reviewed 08/21/2015 12:00 AM MRI LOWER EXTREMITY W/O DYE Returned 10/28/2015 12:[address] [facility]#6953-4022-14 Reviewed 10/28/2015 12:00 AM INFLUENZA VAC 4 VALENT PRSRV FREE 3 YRS PLUS IM Reviewed 05/04/2012 12:00 AM US EXAM OF HEAD AND NECK Reviewed 09/22/2012 12:00 AM REMOVE IMPACTED EAR WAX UNI Reviewed 11/06/2012 12:00 AM Flu Injection [address] [facility]# [address]-88 RHC Reviewed 12/04/2012 12:00 AM TD VACCINE [...] 05/07/2014 12:00 AM Decadron, Per [address] [facility]# [address]-00 Reviewed 05/07/2014 12:00 AM Depo-Medrol, Per [address] [facility]#3983-2612-86 Reviewed 05/07/2014 12:00 AM REMOVE IMPACTED EAR WAX UNI Reviewed 07/04/2014 12:[address] [facility]# [address]-17 Reviewed 07/04/2014 12:00 AM Depo-Medrol [address] [facility]#[address]-93 Reviewed Results Summary Data and Description Results [...] 11/05/2015 7:00 AM PROTIME 34.40 secsINR 3.1 History Of Immunizations Name Date Admin Mfg Name Mfg Code Trade Name Lot# Route Inj Vis Given Vis Pub CVX Influenza 11/06/2012 sanofi pasteur PMC Fluzone [id number] Intramuscular Left Deltoid 11/06/2012 08/23/2011 141 Td 12/04/2012 sanofi pasteur PMC TENIVAC [id number] Intramuscular Left Deltoid 12/04/2012 03/16/2011 113 Tdap 10/28/2013 sanofi pasteur PMC ADACEL [id number] Intramuscular Right Upper Arm 10/28/2013 07/21/2012 115 X 11/21/2013 Onhhf-Ojgyvf-Vzfpbto-Praxis WAL Prevnar 13 [id number] Intramuscular Left Deltoid 11/22/2013 2012 33 Influenza [...] Policy Number Policy Group Number Start Date [facility] [id number] N/A Medicare Part A Medicare Part A [id number] N/A Medicare Part B Medicare Secondary [id number] N/A Medicare Part B Medicare [facility] [id number] N/A Medicare Part A Medicare - Lab/Xray [id number] N/A BCBS [facility] [id number] N/A History of Encounters Visit Date Visit Type Provider 10/28/2015 Office visit Shira Joyce SORTER/ASSAY TECH 08/21/2015 Office visit Timothy Cruz MD 08/18/2015 Hospital Isabel Townsend MD 08/16/2015 Office visit Phillip Kimbrough PA-C 08/04/2015 Office visit Timothy Cruz MD 05/06/2015 Office visit Shira Joyce SORTER/ASSAY TECH 04/21/2015 Hospital Stevan Frey DO 04/18/2015 Office visit Phillip Kimbrough PA-C 03/28/2015 Office visit Stevan Frey DO 03/13/2015 Office visit Timothy Cruz MD 10/22/2014 Office visit Timothy Cruz MD 08/16/2014 Office visit Willy Gordillo SORTER/ASSAY TECH 07/04/2014 Office visit Timothy Cruz MD 05/07/2014 Office visit 05/07/2014 Office visit Shira Joyce SORTER/ASSAY TECH 05/06/2014 Voided Timothy Cruz MD 11/21/2013 Nurse visit Timothy Cruz MD 10/30/2013 Office visit Timothy Cruz MD 10/28/2013 Office visit Felisa Arita SORTER/ASSAY TECH 07/20/2013 Office visit Timothy Cruz MD 05/10/2013 [facility] Lalitha Bender MD 02/27/2013 Office visit Timothy Cruz MD 01/03/2013 Nurse visit Timothy Cruz MD 12/04/2012 Office visit Timothy Cruz MD 12/01/2012 Office visit Timothy Cruz MD 11/06/2012 Office visit Timothy Cruz MD 09/25/2012 Office visit Timothy Cruz MD 09/22/2012 Office visit Phillip Kimbrough PA-C 05/04/2012 Office visit Timothy Cruz MD 04/26/2012 Office visit Darby Moss SORTER/ASSAY TECH 07/12/2011 [facility] Lalitha Bender MD 07/12/2011 [facility] Huang Abdi MD 07/16/2009 Office visit Huang Abdi MD 07/10/2009 Surgery Huang Abdi MD 06/10/2009 Surgery Huang Abdi MD
--- OUTSIDE RECORDS SUMMARY | 2017-11-08 08:33 | XMS REPORT ---
Author Author Timothy Cruz [facility] Address [address] [place], [place] [address] Care Team Providers Care Crop Puller Name Role Phone Timothy Cruz PCP Unavailable [...] by topical route 2 times per day Name Start [...] oral route once daily for 14 days Discontinued Name Start Date Discontinued Date [...] HC BMI BSA BMI Percentile O2 Sat(%) 06/28/2016 2:12:00 PM 126 mmHg 84 mmHg [...] [facility]# [address]-73 Reviewed 03/13/2015 12:00 AM Depo-Medrol, Per 80 Mg [facility]#[address]-38 Reviewed 03/28/2015 12:00 AM SELF-MGMT EDUC & TRAIN 1 PT Reviewed 03/28/2015 12:00 AM Screening, Colonoscopy,Colorectal Reviewed 03/31/2015 12:00 AM ELECTROCARDIOGRAM COMPLETE Reviewed 03/31/2015 12:00 AM CHEST X-RAY 2VW FRONTAL&LATL Reviewed 05/06/2015 12:00 AM Decadron, Per 1 Mg [facility]# [address]-43 Reviewed 05/06/2015 12:00 AM Depo-Medrol 40mg Reviewed 05/06/2015 12:00 AM PROTHROMBIN TIME Reviewed 08/04/2015 12:00 AM Decadron, Per 1 Mg [facility]# [address]-78 Reviewed 08/04/2015 12:00 AM Depo-Medrol, Per 80 Mg [facility]#[address]-73 Reviewed 08/21/2015 12:00 AM MRI LOWER EXTREMITY W/O DYE Reviewed 10/28/2015 12:00 AM Toradol 60 Mg [facility]#3641-1118-50 Reviewed 10/28/2015 12:00 AM INFLUENZA VAC 4 VALENT PRSRV FREE 3 YRS PLUS IM Reviewed 05/04/2012 12:00 AM US EXAM OF HEAD AND NECK Reviewed 09/22/2012 12:00 AM REMOVE IMPACTED EAR WAX UNI Reviewed 11/06/2012 12:00 AM Flu Injection 3 Years And Above [facility]# [address]-22 RHC Reviewed 12/04/2012 12:00 AM TD VACCINE [...] [facility]# [address]-18 Reviewed 05/07/2014 12:00 AM Depo-Medrol, Per 80 Mg [facility]#7679-3862-84 Reviewed 05/07/2014 12:00 AM REMOVE IMPACTED EAR WAX UNI Reviewed 07/04/2014 12:00 AM Decadron 8 mg [facility]# [address]-02 Reviewed 07/04/2014 12:00 AM Depo-Medrol 80 mg [facility]#[address]-68 Reviewed 08/16/2014 12:00 AM REMOVE IMPACTED EAR [...] 03/10/2016 7:15 AM PROTIME 26.90 secsINR 2.4 04/02/2016 7:00 AM PROTIME 23.40 secsINR 2.1 05/06/2016 7:15 AM PROTIME 15.10 secsINR 1.4 05/10/2016 7:20 AM PROTIME 17.50 secsINR 1.6 05/18/2016 6:55 AM PROTIME 25.40 secsINR 2.3 06/21/2016 6:55 AM PROTIME 15.50 secsINR 1.4 History Of Immunizations Name Date Admin Mfg Name Mfg Code Trade Name Lot# Route Inj Vis Given Vis Pub CVX Influenza 11/06/2012 sanofi pasteur PMC Fluzone [id number] Intramuscular Left Deltoid 11/06/2012 08/23/2011 141 Td 12/04/2012 sanofi pasteur PMC TENIVAC [id number] Intramuscular Left Deltoid 12/04/2012 03/16/2011 113 Tdap 10/28/2013 sanofi pasteur PMC ADACEL [id number] Intramuscular Right Upper Arm 10/28/2013 07/21/2012 115 X 11/21/2013 [facility] MICHAEL Garcianar 13 [id number] Intramuscular Left Deltoid 11/22/2013 2012 33 Influenza 10/28/2015 [facility] Fluzone [id number] Intramuscular Right Deltoid 10/28/2015 [...] 2:16PM Contact dermatitis Jun 28 2016 2:16PM Payers Insurance Name Company Name Plan Name Plan Number Policy Number Policy Group Number Start Date [facility] [id number] N/A Medicare Part A Medicare Part A [id number] N/A Medicare Part B Medicare Secondary [id number] N/A Medicare Part B Medicare Of [place] [id number] N/A Medicare Part A Medicare - Lab/Xray [id number] N/A [facility] [id number] N/A History of Encounters Visit Date Visit Type Provider 06/28/2016 Office visit Timothy Cruz MD 03/26/2016 Office visit Timothy Cruz MD 01/06/2016 Office visit Timothy Cruz MD 11/28/2015 Office visit Araseli Ochoa APRN 11/22/2015 Office visit Phillip Kimbrough PA-C 10/28/2015 Office visit Shira Joyce APRN 08/21/2015 Office visit Timothy Cruz MD 08/18/2015 Hospital Isabel Townsend MD 08/18/2015 [facility] Lalitha Bender MD 08/16/2015 Office visit Phillip Kimbrough PA-C 08/04/2015 Office visit Timothy Cruz MD 05/06/2015 Office visit Shira Joyce APRN 04/21/2015 Hospital Stevan Frey DO 04/18/2015 Office visit Phillip Kimbrough PA-C 03/28/2015 Office visit Stevan Frey DO 03/13/2015 Office visit Timothy Cruz MD 10/22/2014 Office visit Timothy Cruz MD 08/16/2014 Office visit Willy Gordillo PRINCIPAL LAW CLERK 07/04/2014 Office visit Timothy Cruz MD 05/07/2014 Office visit 05/07/2014 Office visit Shira Joyce PRINCIPAL LAW CLERK 05/06/2014 Voided Timothy Cruz MD 11/21/2013 Nurse visit Timothy Cruz MD 10/30/2013 Office visit Timothy Cruz MD 10/28/2013 Office visit Felisa Arita PRINCIPAL LAW CLERK 07/20/2013 Office visit Timothy Cruz MD [...] Cruz MD 04/26/2012 Office visit Darby Moss PRINCIPAL LAW CLERK 07/12/2011 Hospital Lalitha Bender MD 07/12/2011 Hospital Huang Abdi MD 07/16/2009 Office visit Huang Abdi MD 07/10/2009 Surgery Huang Abdi MD 06/10/2009 Surgery Huang Abdi MD
--- OUTSIDE RECORDS SUMMARY | 2017-11-08 08:33 | XMS REPORT ---
Author Stevan Kiran [facility] Address [address] [place], [place] [address] Care Team Providers Care Ear Nose And Throat Specialist Name Role Phone Stevan Frey PCP Unavailable Allergies and Adverse Reactions Name Reaction Notes NO KNOWN DRUG ALLERGIES Plan of Treatment Planned Activity Comments Planned Date Planned Time Plan/Goal SELF-MGMT EDUC & TRAIN 1 PT 03/28/2015 12:00 AM Medications Active Name Start Date [...] 1 Mg [facility]# [address]-18 Reviewed 03/13/2015 12:00 AM Depo-Medrol, Per 80 Mg [facility]#[address]-71 Reviewed 03/28/2015 12:00 AM Screening, Colonoscopy,Colorectal Reviewed 05/04/2012 12:00 AM US EXAM OF HEAD AND NECK Reviewed 09/22/2012 12:00 AM REMOVE IMPACTED EAR WAX UNI Reviewed 11/06/2012 12:00 AM Flu Injection 3 Years And Above [facility]# [address]-69 RHC Reviewed 12/04/2012 12:00 AM TD VACCINE [...] 1 Mg [facility]# [address]-14 Reviewed 05/07/2014 12:00 AM Depo-Medrol, Per 80 Mg [facility]#4657-3225-58 Reviewed 05/07/2014 12:00 AM REMOVE IMPACTED EAR WAX UNI Reviewed 07/04/2014 12:00 AM Decadron 8 mg [facility]# [address]-74 Reviewed 07/04/2014 12:00 AM Depo-Medrol 80 mg [facility]#[address]-00 Reviewed Results Summary Data and Description Results [...] CVX Influenza 11/06/2012 sanofi pasteur PMC Fluzone [id number] Intramuscular Left Deltoid 11/06/2012 08/23/2011 141 Td 12/04/2012 sanofi pasteur PMC TENIVAC [id number] Intramuscular Left Deltoid 12/04/2012 03/16/2011 113 Tdap 10/28/2013 sanofi pasteur PMC ADACEL [id number] Intramuscular Right Upper Arm 10/28/2013 07/21/2012 115 Pneumococcal 11/21/2013 [facility] 13 [id number] Intramuscular Left Deltoid 11/22/2013 2012 33 History [...] of colonic polyps Mar 28 2015 11:52AM Payers Insurance Name Company Name Plan Name Plan Number Policy Number Policy Group Number Start Date [facility] [id number] N/A Medicare Part A Medicare Part A [id number] N/A Medicare Part B Medicare Secondary [id number] N/A Medicare Part B Medicare Of [place] [id number] N/A BCBS [facility] [id number] N/A History of Encounters Visit Date Visit Type Provider 03/28/2015 Office visit Stevan Tk MORALES 03/13/2015 Office visit Timothy Cruz MD 10/22/2014 Office visit Timothy Cruz MD 08/16/2014 Office visit Willy Gordillo TAXONOMIST 07/04/2014 Office visit Timothy Cruz MD 05/07/2014 Office visit 05/07/2014 Office visit Shira Joyce TAXONOMIST 05/06/2014 Voided Timothy Cruz MD 11/21/2013 Nurse visit Timothy Cruz MD 10/30/2013 Office visit Timothy Cruz MD 10/28/2013 Office visit Felisa Arita TAXONOMIST 07/20/2013 Office visit Timothy Cruz MD 05/10/2013 [...] Cruz MD 04/26/2012 Office visit Darby Moss TAXONOMIST 07/12/2011 Hospital Lalitha Bender MD 07/12/2011 Hospital Huang Abdi MD 07/16/2009 Office visit Huang Abdi MD 07/10/2009 Surgery Huang Abdi MD 06/10/2009 Surgery Huang Abdi MD
--- OUTSIDE RECORDS SUMMARY | 2017-11-08 08:34 | XMS REPORT ---
Author Author Timothy Cruz [facility] Address [address] [place], [place] [address] Care Team Providers Care Hr Recruiter Name Role Phone Timothy Cruz PCP Unavailable [...] TAKE ONE TABLET BY MOUTH TWICE DAILY Xarelto 20 mg oral tablet 09/23/2016 01/21/2017 take 1 tablet (20 mg) by oral route once daily with the evening meal for 30 days Name Start Date Expiration Date SIG [...] HC BMI BSA BMI Percentile O2 Sat(%) 09/23/2016 2:03:00 PM 110 mmHg 72 mmHg [...] 03/13/2015 12:00 AM Decadron, Per 1 Mg [facility]# [address]-05 Reviewed 03/13/2015 12:00 AM Depo-Medrol, Per 80 Mg [facility]#[address]-08 Reviewed 03/28/2015 12:00 AM SELF-MGMT EDUC & TRAIN 1 PT Reviewed 03/28/2015 12:00 AM Screening, Colonoscopy,Colorectal Reviewed 03/31/2015 12:00 AM ELECTROCARDIOGRAM COMPLETE Reviewed 03/31/2015 12:00 AM CHEST X-RAY 2VW FRONTAL&LATL Reviewed 05/06/2015 12:00 AM Decadron, Per 1 Mg [facility]# [address]-86 Reviewed 05/06/2015 12:00 AM Depo-Medrol 40mg Reviewed 05/06/2015 12:00 AM PROTHROMBIN TIME Reviewed 08/04/2015 12:00 AM Decadron, Per 1 Mg [facility]# [address]-14 Reviewed 08/04/2015 12:00 AM Depo-Medrol, Per 80 Mg [facility]#[address]-02 Reviewed 08/21/2015 12:00 AM MRI LOWER EXTREMITY W/O DYE Reviewed 10/28/2015 12:00 AM Toradol 60 Mg [facility]#0326-0048-45 Reviewed 10/28/2015 12:00 AM INFLUENZA VAC 4 VALENT PRSRV FREE 3 YRS PLUS IM Reviewed 08/04/2016 12:00 AM Decadron 8mg Injection Reviewed 08/04/2016 12:00 AM Depo-Medrol 80mg Injection Reviewed 05/04/2012 12:00 AM US EXAM OF HEAD AND NECK Reviewed 09/22/2012 12:00 AM REMOVE IMPACTED EAR WAX UNI Reviewed 11/06/2012 12:00 AM Flu Injection 3 Years And Above [facility]# [address]-47 RHC Reviewed 12/04/2012 12:00 AM TD VACCINE [...] 05/07/2014 12:00 AM Decadron, Per 1 Mg [place]# [address]-63 Reviewed 05/07/2014 12:00 AM Depo-Medrol, Per 80 Mg [facility]#5954-5680-14 Reviewed 05/07/2014 12:00 AM REMOVE IMPACTED EAR WAX UNI Reviewed 07/04/2014 12:00 AM Decadron 8 mg [facility]# [address]-39 Reviewed 07/04/2014 12:00 AM Depo-Medrol 80 mg [facility]#[address]-48 Reviewed 08/16/2014 12:00 AM REMOVE IMPACTED EAR WAX UNI Reviewed Results Summary Date and Description Results 07/12/2011 8:15 AM GLUCOSE [...] 06/21/2016 6:55 AM PROTIME 15.50 secsINR 1.4 07/07/2016 6:50 AM PROTIME 13.10 secsINR 1.2 07/09/2016 7:15 AM PROTIME 14.0 secsINR 1.3 07/13/2016 7:00 AM PROTIME 14.70 secsINR 1.3 07/15/2016 6:58 AM PROTIME 21.10 secsINR 1.9 07/20/2016 7:10 AM PROTIME 24.10 secsINR 2.1 08/23/2016 3:05 PM PROTIME 11.0 secsINR 1.0 History Of Immunizations Name Date Admin Mfg Name Mfg Code Trade Name Lot# Route Inj Vis Given Vis Pub CVX Influenza 11/06/2012 sanofi pasteur PMC Fluzone [id number] Intramuscular Left Deltoid 11/06/2012 08/23/2011 141 Td 12/04/2012 sanofi pasteur PMC TENIVAC [id number] Intramuscular Left Deltoid 12/04/2012 03/16/2011 113 Tdap 10/28/2013 sanofi pasteur PMC ADACEL [id number] Intramuscular Right Upper Arm 10/28/2013 07/21/2012 115 X 11/21/2013 Ehdho-Qphils-XeimtvkJamison WAL Prevnar 13 [id number] Intramuscular Left Deltoid 11/22/2013 2012 33 Influenza [...] 2016 2:08PM Wart Sep 23 2016 2:33PM Payers Insurance Name Company Name Plan Name Plan Number Policy Number Policy Group Number Start Date [facility] [id number] N/A Medicare Part A Medicare Part A [id number] N/A Medicare Part B Medicare Secondary [id number] N/A Medicare Part B Medicare Of [place] [id number] N/A Medicare Part A Medicare - Lab/Xray [id number] N/A [id number] N/A History of Encounters Visit Date Visit Type Provider 09/23/2016 Office visit Timothy Cruz MD 08/04/2016 Office visit Timothy Cruz MD 06/28/2016 Office visit Timothy Cruz MD 03/26/2016 Office visit Timothy Curz MD 01/06/2016 Office visit Timothy Cruz MD 11/28/2015 Office visit Araseli Ochoa PRINCIPAL CLERK TYPIST 11/22/2015 Office visit Phillip Kimbrough PA-C 10/28/2015 Office visit Shira Joyce PRINCIPAL CLERK TYPIST 08/21/2015 Office visit Timothy Cruz MD 08/18/2015 [facility] Isabel Townsend MD 08/18/2015 [facility] Lalitha Bender MD 08/16/2015 Office visit Phillip Kimbrough PA-C 08/04/2015 Office visit Timothy Cruz MD 05/06/2015 Office visit Shira Joyce PRINCIPAL CLERK TYPIST 04/21/2015 [facility] Stevan Frey DO 04/18/2015 Office visit Phillip Kimbrough PA-C 03/28/2015 Office visit Stevan Frey DO 03/13/2015 Office visit Timothy Cruz MD 10/22/2014 Office visit Timothy Cruz MD 08/16/2014 Office visit Willy Gordillo PRINCIPAL CLERK TYPIST 07/04/2014 Office visit Timothy Cruz MD 05/07/2014 Office visit 05/07/2014 Office visit Shira Joyce PRINCIPAL CLERK TYPIST 05/06/2014 Voided Timothy Cruz MD 11/21/2013 Nurse [...] APRN 07/12/2011 Hospital Lalitha Bender MD 07/12/2011 [facility] Huang Abdi MD 07/16/2009 Office visit Huang Abdi MD 07/10/2009 Surgery Huang Abdi MD 06/10/2009 Surgery Huang Abdi MD
--- OUTSIDE RECORDS SUMMARY | 2017-11-08 08:35 | XMS REPORT ---
Author Author Phillip Kimbrough [facility] Address [address] [place], [place] [address] Care Team Providers Care Diagnostic Technologist Name Role Phone Phillip Kimbrough PCP Unavailable [...] (at bedtime) as needed for 30 days Name Start Date Expiration [...] HC BMI BSA BMI Percentile O2 Sat(%) 08/16/2015 1:53:00 PM 132 mmHg 74 mmHg [...] 03/13/2015 12:00 AM Decadron, Per 1 Mg [facility]# [address]-88 Reviewed 03/13/2015 12:00 AM Depo-Medrol, Per 80 Mg [facility]#[address]-43 Reviewed 03/28/2015 12:00 AM SELF-MGMT EDUC & TRAIN 1 PT Reviewed 03/28/2015 12:00 AM Screening, Colonoscopy,Colorectal Reviewed 03/31/2015 12:00 AM ELECTROCARDIOGRAM COMPLETE Reviewed 03/31/2015 12:00 AM CHEST X-RAY 2VW FRONTAL&LATL Reviewed 05/06/2015 12:00 AM Decadron, Per 1 Mg [facility]# [address]-91 Reviewed 05/06/2015 12:00 AM Depo-Medrol 40mg Reviewed 05/06/2015 12:00 AM PROTHROMBIN TIME Reviewed 05/04/2012 12:00 AM US EXAM OF HEAD AND NECK Reviewed 09/22/2012 12:00 AM REMOVE IMPACTED EAR WAX UNI Reviewed 11/06/2012 12:00 AM Flu Injection 3 Years And Above [facility]# [address]-65 C Reviewed 12/04/2012 12:00 AM TD VACCINE NO [...] 05/07/2014 12:00 AM Decadron, Per 1 Mg [facility]# [address]-09 Reviewed 05/07/2014 12:00 AM Depo-Medrol, Per 80 Mg [facility]#2639-0565-89 Reviewed 05/07/2014 12:00 AM REMOVE IMPACTED EAR WAX UNI Reviewed 07/04/2014 12:00 AM Decadron 8 mg [facility]# [address]-58 Reviewed 07/04/2014 12:00 AM Depo-Medrol 80 mg [facility]#[address]-87 Reviewed Results Summary Data and Description Results [...] 07/29/2015 7:10 AM PROTIME 28.60 secsINR 2.6 History Of Immunizations Name Date Admin Mfg Name Mfg Code Trade Name Lot# Route Inj Vis Given Vis Pub CVX Influenza 11/06/2012 sanofi pasteur PMC Fluzone [id number] Intramuscular Left Deltoid 11/06/2012 08/23/2011 141 Td 12/04/2012 [facility] TENIVAC [id number] Intramuscular Left Deltoid 12/04/2012 03/16/2011 113 Tdap 10/28/2013 [facility] ADACEL [id number] Intramuscular Right Upper Arm 10/28/2013 07/21/2012 115 X 11/21/2013 AleksandraJamison WAL Radhanar 13 [id number] Intramuscular Left Deltoid 11/22/2013 2012 33 History [...] 3:52PM Muscle tear Aug 16 2015 1:55PM Payers Insurance Name Company Name Plan Name Plan Number Policy Number Policy Group Number Start Date [facility] [id number] N/A Medicare Part A Medicare Part A [id number] N/A Medicare Part B Medicare Secondary [id number] N/A Medicare Part B Medicare Of [place] [id number] N/A Medicare Part A Medicare - Lab/Xray [id number] N/A [employer] [id number] N/A History of Encounters Visit Date Visit Type Provider 08/16/2015 Office visit Phillip Kimbrough PA-C 08/04/2015 Office visit Timothy Cruz MD 05/06/2015 Office visit Shira Joyce HEDDLER TIER 04/21/2015 [facility] Stevan Frey DO 04/18/2015 Office visit Phillip Kimbrough PA-C 03/28/2015 Office visit Stevan Frey DO 03/13/2015 Office visit Timothy Cruz MD 10/22/2014 Office visit Timothy Cruz MD 08/16/2014 Office visit Willy Gordillo HEDDLER TIER 07/04/2014 Office visit Timothy Cruz MD 05/07/2014 Office visit 05/07/2014 Office visit Shira Joyce APRN 05/06/2014 Voided Timothy Cruz MD 11/21/2013 Nurse visit Timothy Cruz MD 10/30/2013 Office visit Timothy Cruz MD 10/28/2013 Office visit Felisa Arita APRN 07/20/2013 Office visit Timothy Cruz MD 05/10/2013 [facility] Lalitha Bender MD 02/27/2013 Office visit Timothy Cruz MD 01/03/2013 Nurse visit Timothy Cruz MD 12/04/2012 Office visit Timothy Cruz MD 12/01/2012 Office visit Timothy Cruz MD 11/06/2012 Office visit Timothy Cruz MD 09/25/2012 Office visit Timothy Cruz MD 09/22/2012 Office visit Phillip Kimbrough PA-C 05/04/2012 Office visit Timothy Cruz MD 04/26/2012 Office visit Darby Moss APRN 07/12/2011 [facility] Lalitha Bender MD 07/12/2011 [facility] Huang Abdi MD 07/16/2009 Office visit Huang Abdi MD 07/10/2009 Surgery Huang Abdi MD 06/10/2009 Surgery Huang Abdi MD
--- OUTSIDE RECORDS SUMMARY | 2017-11-08 08:35 | XMS REPORT ---
Author Author Timothy Cruz [facility] Address [address] [place], [place] [address] Care Team Providers Care Direct Support Specialist Name Role Phone Timothy Cruz PCP Unavailable [...] HC BMI BSA BMI Percentile O2 Sat(%) 08/16/2014 2:19:00 PM 108 mmHg 66 mmHg [...] CVX Influenza 11/06/2012 sanofi pasteur PMC Fluzone [id number] Intramuscular Left Deltoid 11/06/2012 08/23/2011 141 Td 12/04/2012 sanofi pasteur PMC TENIVAC [id number] Intramuscular Left Deltoid 12/04/2012 03/16/2011 113 Tdap 10/28/2013 sanofi pasteur PMC ADACEL [id number] Intramuscular Right Upper Arm 10/28/2013 07/21/2012 115 Pneumococcal 11/21/2013 Xhorh-Rbzomr-Jkgbdso-Prashefali [facility] Prevnar 13 [id number] Intramuscular Left Deltoid 11/22/2013 2012 33 History [...] 2:22PM Impacted Cerumen Aug 16 2014 3:28PM Payers Insurance Name Company Name Plan Name Plan Number Policy Number Policy Group Number Start Date [facility] [id number] N/A Medicare Part A Medicare Part A [id number] N/A Medicare Part B Medicare Secondary [id number] N/A [facility] [id number] N/A History of Encounters Visit Date Visit Type Provider 08/16/2014 Office visit Willy Gordillo WEDDING PHOTOGRAPHER 07/04/2014 Office visit Timothy Cruz MD 05/07/2014 Office visit Shira Joyce WEDDING PHOTOGRAPHER 05/06/2014 Voided Timothy Curz MD 11/21/2013 Nurse visit Timothy Cruz MD 10/30/2013 Office visit Timothy Cruz MD 10/28/2013 Office visit Felisa Arita WEDDING PHOTOGRAPHER 07/20/2013 Office visit Timothy Cruz MD 05/10/2013 [...] 04/26/2012 Office visit Darby Moss APRN 07/12/2011 [facility] Huang Abdi MD 07/12/2011 [facility] Lalitha Bender MD 07/16/2009 Office visit Huang Abdi MD 07/10/2009 Surgery Huang Abdi MD 06/10/2009 Surgery Huang Abdi MD
--- OUTSIDE RECORDS SUMMARY | 2017-11-08 08:36 | XMS REPORT ---
Author Author Phillip Kibmrough Organization [facility] Address [address] [place], [place] [address] Care Team Providers Care Winding Inspector Name Role Phone Phillip Kimbrough PCP Unavailable [...] HC BMI BSA BMI Percentile O2 Sat(%) 11/22/2015 9:08:00 AM 114 mmHg 80 mmHg [...] [facility]# [address]-10 Reviewed 03/13/2015 12:00 AM Depo-Medrol, Per 80 Mg [facility]#[address]-46 Reviewed 03/28/2015 12:00 AM SELF-MGMT EDUC & TRAIN 1 PT Reviewed 03/28/2015 12:00 AM Screening, Colonoscopy,Colorectal Reviewed 03/31/2015 12:00 AM ELECTROCARDIOGRAM COMPLETE Reviewed 03/31/2015 12:00 AM CHEST X-RAY 2VW FRONTAL&LATL Reviewed 05/06/2015 12:00 AM Decadron, Per 1 Mg [facility]# [address]-52 Reviewed 05/06/2015 12:00 AM Depo-Medrol 40mg Reviewed 05/06/2015 12:00 AM PROTHROMBIN TIME Reviewed 08/04/2015 12:00 AM Decadron, Per 1 Mg [facility]# [address]-90 Reviewed 08/04/2015 12:00 AM Depo-Medrol, Per 80 Mg [facility]#[address]-29 Reviewed 08/21/2015 12:00 AM MRI LOWER EXTREMITY W/O DYE Returned 10/28/2015 12:00 AM Toradol 60 Mg [facility]#5035-4785-57 Reviewed 10/28/2015 12:00 AM INFLUENZA VAC 4 VALENT PRSRV FREE 3 YRS PLUS IM Reviewed 05/04/2012 12:00 AM US EXAM OF HEAD AND NECK Reviewed 09/22/2012 12:00 AM REMOVE IMPACTED EAR WAX UNI Reviewed 11/06/2012 12:00 AM Flu Injection 3 Years And Above [facility]# [address]-31 RHC Reviewed 12/04/2012 12:00 AM TD VACCINE [...] [facility]# [address]-26 Reviewed 05/07/2014 12:00 AM Depo-Medrol, Per 80 Mg [facility]#1926-5172-93 Reviewed 05/07/2014 12:00 AM REMOVE IMPACTED EAR WAX UNI Reviewed 07/04/2014 12:00 AM Decadron 8 mg [facility]# [address]-89 Reviewed 07/04/2014 12:00 AM Depo-Medrol 80 mg [facility]#[address]-01 Reviewed Results Summary Data and Description Results [...] CVX Influenza 11/06/2012 sanofi pasteur PMC Fluzone [id number] Intramuscular Left Deltoid 11/06/2012 08/23/2011 141 Td 12/04/2012 sanofi pasteur PMC TENIVAC [id number] Intramuscular Left Deltoid 12/04/2012 03/16/2011 113 Tdap 10/28/2013 sanofi pasteur PMC ADACEL [id number] Intramuscular Right Upper Arm 10/28/2013 07/21/2012 115 X 11/21/2013 Ahejr-Rpuuwh-Ivlbcjm-Prashefali [facility] Prevnar 13 [id number] Intramuscular Left Deltoid 11/22/2013 2012 33 Influenza [...] auditory canal, left Nov 22 2015 9:11AM Payers Insurance Name Company Name Plan Name Plan Number Policy Number Policy Group Number Start Date [facility] [id number] N/A Medicare Part A Medicare Part A [id number] N/A Medicare Part B Medicare Secondary [id number] N/A Medicare Part B Medicare Of [place] [id number] N/A Medicare Part A Medicare - Lab/Xray [id number] N/A BCBS [facility] [id number] N/A History of Encounters Visit Date Visit Type Provider 11/22/2015 Office visit Phillip Kimbrough PA-C 10/28/2015 Office visit Shira Joyce MECHANOTHERAPIST 08/21/2015 Office visit Timothy Cruz MD 08/18/2015 [facility] Isabel Townsend MD 08/16/2015 Office visit Phillip Kimbrough PA-C 08/04/2015 Office visit Timothy Cruz MD 05/06/2015 Office visit Shira Joyce MECHANOTHERAPIST 04/21/2015 [facility] Stevan Frey DO 04/18/2015 Office visit Phillip Kimbrough PA-C 03/28/2015 Office visit Stevan Frey DO 03/13/2015 Office visit Timothy Cruz MD 10/22/2014 Office visit Timothy Cruz MD 08/16/2014 Office visit Willy Gordillo MECHANOTHERAPIST 07/04/2014 Office visit Timothy Cruz MD 05/07/2014 Office visit 05/07/2014 Office visit Shira Joyce MECHANOTHERAPIST 05/06/2014 Voided Timothy Cruz MD 11/21/2013 Nurse visit Timothy Cruz MD 10/30/2013 Office visit Timothy Cruz MD 10/28/2013 Office visit Felisa Arita MECHANOTHERAPIST 07/20/2013 Office visit Timothy Cruz MD 05/10/2013 [facility] Lalitha Bender MD 02/27/2013 Office visit Timothy Cruz MD 01/03/2013 Nurse visit Timothy Cruz MD 12/04/2012 Office visit Timothy Cruz MD 12/01/2012 Office visit Timothy Cruz MD 11/06/2012 Office visit Timothy Cruz MD 09/25/2012 Office visit Timothy Cruz MD 09/22/2012 Office visit Phillip Kimbrough PA-C 05/04/2012 Office visit Timothy Cruz MD 04/26/2012 Office visit Darby Moss APRN 07/12/2011 [facility] Lalitha Bender MD 07/12/2011 [facility] Huang Abdi MD 07/16/2009 Office visit Huang Abdi MD 07/10/2009 Surgery Huang Abdi MD 06/10/2009 Surgery Huang Abdi MD
--- OUTSIDE RECORDS SUMMARY | 2017-11-08 08:37 | XMS REPORT ---
Author Author Phillip Kimbrough [facility] Address [address] [place], [place] [address] Care Team Providers Care Family Psychologist Name Role Phone Phillip Kimbrough PCP Unavailable [...] 03/13/2015 12:00 AM Decadron, Per 1 Mg [facility]# [address]-25 Reviewed 03/13/2015 12:00 AM Depo-Medrol, Per 80 Mg [facility]#[address]-33 Reviewed 03/28/2015 12:00 AM SELF-MGMT EDUC & TRAIN 1 PT Reviewed 03/28/2015 12:00 AM Screening, Colonoscopy,Colorectal Reviewed 03/31/2015 12:00 AM ELECTROCARDIOGRAM COMPLETE Reviewed 03/31/2015 12:00 AM CHEST X-RAY 2VW FRONTAL&LATL Reviewed 05/06/2015 12:00 AM Decadron, Per 1 Mg [facility]# [address]-07 Reviewed 05/06/2015 12:00 AM Depo-Medrol 40mg Reviewed 05/06/2015 12:00 AM PROTHROMBIN TIME Reviewed 05/04/2012 12:00 AM US EXAM OF HEAD AND NECK Reviewed 09/22/2012 12:00 AM REMOVE IMPACTED EAR WAX UNI Reviewed 11/06/2012 12:00 AM Flu Injection 3 Years And Above [facility]# [address]-94 C Reviewed 12/04/2012 12:00 AM TD VACCINE [...] 05/07/2014 12:00 AM Decadron, Per 1 Mg [facility]# [address]-01 Reviewed 05/07/2014 12:00 AM Depo-Medrol, Per 80 Mg [facility]#8026-8727-99 Reviewed 05/07/2014 12:00 AM REMOVE IMPACTED EAR WAX UNI Reviewed 07/04/2014 12:00 AM Decadron 8 mg [facility]# [address]-60 Reviewed 07/04/2014 12:00 AM Depo-Medrol 80 mg [facility]#[address]-44 Reviewed Results Summary Data and Description Results [...] CVX Influenza 11/06/2012 sanofi pasteur PMC Fluzone [id number] Intramuscular Left Deltoid 11/06/2012 08/23/2011 141 Td 12/04/2012 [facility] TENIVAC [id number] Intramuscular Left Deltoid 12/04/2012 03/16/2011 113 Tdap 10/28/2013 [facility] ADACEL [id number] Intramuscular Right Upper Arm 10/28/2013 07/21/2012 115 X 11/21/2013 AleksandraJamison [facility] Radhanar 13 [id number] Intramuscular Left Deltoid 11/22/2013 2012 33 History [...] Number Policy Group Number Start Date [facility] [id number] N/A Medicare Part A Medicare Part A [id number] N/A Medicare Part B Medicare Secondary [id number] N/A Medicare Part B Medicare Of [place] [id number] N/A Medicare Part A Medicare - Lab/Xray [id number] N/A [facility] [id number] N/A History of Encounters Visit Date Visit Type Provider 08/16/2015 Office visit Phillip Kimbrough PA-C 08/04/2015 Office visit Timothy Cruz MD 05/06/2015 Office visit Shria Joyce ANALYTICAL LAB ANALYST 04/21/2015 [facility] Stevan Frey DO 04/18/2015 Office visit Phillip Kimbrough PA-C 03/28/2015 Office visit Stevan Frey DO 03/13/2015 Office visit Timothy Cruz MD 10/22/2014 Office visit Timothy Cruz MD 08/16/2014 Office visit Willy Gordillo ANALYTICAL LAB ANALYST 07/04/2014 Office visit Timothy Cruz MD 05/07/2014 Office visit 05/07/2014 Office visit Shira Joyce APRN 05/06/2014 Voided Timothy Cruz MD 11/21/2013 Nurse visit Timothy Cruz MD 10/30/2013 Office visit Timothy Cruz MD 10/28/2013 Office visit Felisa Arita APRN 07/20/2013 Office visit Timothy Cruz MD 05/10/2013 [facility] Lalitha Bender MD 02/27/2013 Office visit Timothy Cruz MD 01/03/2013 Nurse visit Timothy Cruz MD 12/04/2012 Office visit Timothy Cruz MD 12/01/2012 Office visit Timothy Cruz MD 11/06/2012 Office visit Timothy Cruz MD 09/25/2012 Office visit Timothy Cruz MD 09/22/2012 Office visit Phillip Kimbrough PA-C 05/04/2012 Office visit Timothy Cruz MD 04/26/2012 Office visit Darby Moss APRN 07/12/2011 [facility] Lalitha Bender MD 07/12/2011 [facility] Huang Abdi MD 07/16/2009 Office visit Huang Abdi MD 07/10/2009 Surgery Huang Abdi MD 06/10/2009 Surgery Huang Abdi MD
--- OUTSIDE RECORDS SUMMARY | 2017-11-08 08:38 | XMS REPORT ---
Author Author Timothy Cruz [facility] Address [address] [place], [place] [address] Care Team Providers Care Coat Fitter Name Role Phone Timothy Cruz PCP Unavailable [...] route 2 times per day with food Eliquis 5 mg oral tablet take 1 tablets (10 mg) by oral route 2 times per [...] HC BMI BSA BMI Percentile O2 Sat(%) 08/04/2016 8:25:00 AM 122 mmHg 78 mmHg [...] 03/13/2015 12:00 AM Decadron, Per 1 Mg [facility]# [address]-76 Reviewed 03/13/2015 12:00 AM Depo-Medrol, Per 80 Mg [facility]#[address]-63 Reviewed 03/28/2015 12:00 AM SELF-MGMT EDUC & TRAIN 1 PT Reviewed 03/28/2015 12:00 AM Screening, Colonoscopy,Colorectal Reviewed 03/31/2015 12:00 AM ELECTROCARDIOGRAM COMPLETE Reviewed 03/31/2015 12:00 AM CHEST X-RAY 2VW FRONTAL&LATL Reviewed 05/06/2015 12:00 AM Decadron, Per 1 Mg [facility]# [address]-16 Reviewed 05/06/2015 12:00 AM Depo-Medrol 40mg Reviewed 05/06/2015 12:00 AM PROTHROMBIN TIME Reviewed 08/04/2015 12:00 AM Decadron, Per 1 Mg [facility]# [address]-67 Reviewed 08/04/2015 12:00 AM Depo-Medrol, Per 80 Mg [facility]#[address]-19 Reviewed 08/21/2015 12:00 AM MRI LOWER EXTREMITY W/O DYE Reviewed 10/28/2015 12:00 AM Toradol 60 Mg [facility]#9110-1974-09 Reviewed 10/28/2015 12:00 AM INFLUENZA VAC 4 VALENT PRSRV FREE 3 YRS PLUS IM Reviewed 05/04/2012 12:00 AM US EXAM OF HEAD AND NECK Reviewed 09/22/2012 12:00 AM REMOVE IMPACTED EAR WAX UNI Reviewed 11/06/2012 12:00 AM Flu Injection 3 Years And Above [facility]# [address]-07 RHC Reviewed 12/04/2012 12:00 AM TD VACCINE [...] 05/07/2014 12:00 AM Decadron, Per 1 Mg [facility]# [address]-67 Reviewed 05/07/2014 12:00 AM Depo-Medrol, Per 80 Mg [facility]#7736-4994-52 Reviewed 05/07/2014 12:00 AM REMOVE IMPACTED EAR WAX UNI Reviewed 07/04/2014 12:00 AM Decadron 8 mg [facility]# [address]-81 Reviewed 07/04/2014 12:00 AM Depo-Medrol 80 mg [facility]#[address]-34 Reviewed 08/16/2014 12:00 AM REMOVE IMPACTED EAR [...] 07/20/2016 7:10 AM PROTIME 24.10 secsINR 2.1 History Of Immunizations Name Date Admin Mfg Name Mfg Code Trade Name Lot# Route Inj Vis Given Vis Pub CVX Influenza [facility]/06[facility] Fluzone [id number] Intramuscular Left Deltoid 11/06/2012 08/23/2011 141 Td 12/04/2012 [facility] PMC TENIVAC [id number] Intramuscular Left Deltoid 12/04/2012 03/16/2011 113 Tdap 10/28/2013 [facility] ADACEL [id number] Intramuscular Right Upper Arm 10/28/2013 07/21/2012 115 X 11/21/2013 Aozah-Jlhwby-WtqwzexJamison WAL Prevnar 13 [id number] Intramuscular Left Deltoid 11/22/2013 2012 33 Influenza 10/28/2015 [facility] PM[id number] Intramuscular Right Deltoid [...] at L4-L5 level Aug 04 2016 8:29AM Payers Insurance Name Company Name Plan Name Plan Number Policy Number Policy Group Number Start Date [facility] [id number] N/A Medicare Part A Medicare Part A [id number] N/A Medicare Part B Medicare Secondary [id number] N/A Medicare Part B Medicare Of [place] [id number] N/A Medicare Part A Medicare - Lab/Xray [id number] N/A BCBS [facility] [id number] N/A History of Encounters Visit Date Visit Type Provider 08/04/2016 Office visit Timothy Cruz MD 06/28/2016 Office visit Timothy Cruz MD 03/26/2016 Office visit Timothy Cruz MD 01/06/2016 Office visit Timothy Cruz MD 11/28/2015 Office visit Araseli Ochoa SOFTWARE CLERK 11/22/2015 Office visit Phillip Kimbrough PA-C 10/28/2015 Office visit Shira Joyce SOFTWARE CLERK 08/21/2015 Office visit Timothy Cruz MD 08/18/2015 Hospital Isabel Townsend MD 08/18/2015 Hospital Lalitha Bender MD 08/16/2015 Office visit Phillip Kimbrough PA-C 08/04/2015 Office visit Timothy Cruz MD 05/06/2015 Office visit Shira Joyce SOFTWARE CLERK 04/21/2015 Hospital Stevan Frey DO 04/18/2015 Office visit Phillip Kimbrough PA-C 03/28/2015 Office visit Stevan Frey DO 03/13/2015 Office visit Timothy Cruz MD 10/22/2014 Office visit Timothy Cruz MD 08/16/2014 Office visit Willy Gordillo SOFTWARE CLERK 07/04/2014 Office visit Timothy Cruz MD 05/07/2014 Office visit 05/07/2014 Office visit Shira Joyce SOFTWARE CLERK 05/06/2014 Voided Timothy Cruz MD 11/21/2013 Nurse visit Timothy Cruz MD 10/30/2013 Office visit Timothy Cruz MD 10/28/2013 Office visit Felisa Arita SOFTWARE CLERK 07/20/2013 Office visit Timothy Cruz MD [...] 04/26/2012 Office visit Darby Moss APRN 07/12/2011 [facility] Lalitha Bender MD 07/12/2011 [facility] Huang Abdi MD 07/16/2009 Office visit Huang Abdi MD 07/10/2009 Surgery Huang Abdi MD 06/10/2009 Surgery Huang Abdi MD
--- OUTSIDE RECORDS SUMMARY | 2017-11-08 08:40 | XMS REPORT ---
Author Author Timothy Cruz [facility] Address [address] [place], [place] [address] Care Team Providers Care Trial Management Associate Name Role Phone Timothy Cruz PCP Unavailable [...] HC BMI BSA BMI Percentile O2 Sat(%) 10/22/2014 1:42:00 PM 100 mmHg 64 mmHg 80 bpm 18 rpm 97.9 F 224 lbs 71 in 31.24 kg/m2 2.26 m2 08/16/2014 2:19:00 PM 108 mmHg 66 [...] AM Flu Injection 3 Years And Above [facility]# [address]-54 [facility] Reviewed 12/04/2012 12:00 AM TD VACCINE NO [...] 05/07/2014 12:00 AM Decadron, Per 1 Mg [facility]# [address]-33 Reviewed 05/07/2014 12:00 AM Depo-Medrol, Per 80 Mg [facility]#1091-3701-64 Reviewed 05/07/2014 12:00 AM REMOVE IMPACTED EAR WAX UNI Reviewed 07/04/2014 12:00 AM Decadron 8 mg [facility]# [address]-21 Reviewed 07/04/2014 12:00 AM Depo-Medrol 80 mg [facility]#[address]-35 Reviewed Results Summary Data and Description Results [...] 2.5 History Of Immunizations Name Date Admin g Name [facility] Code Trade Name Lot# Route Inj Vis Given Vis Pub CVX Influenza 11/06/2012 sanofi pasteur PMC Fluzone [id number] Intramuscular Left Deltoid 11/06/2012 08/23/2011 141 Td 12/04/2012 [facility] TENIVAC [id number] Intramuscular Left Deltoid 12/04/2012 03/16/2011 113 Tdap 10/28/2013 [facility] ADACEL [id number] Intramuscular Right Upper Arm 10/28/2013 07/21/2012 115 Pneumococcal 11/21/2013 [facility] Prevnar 13 [id number] Intramuscular Left Deltoid 11/22/2013 2012 33 History [...] 1:52PM Actinic keratosis Oct 22 2014 2:12PM Payers Insurance Name Company Name Plan Name Plan Number Policy Number Policy Group Number Start Date [facility] [id number] N/A Medicare Part A Medicare Part A [id number] N/A Medicare Part B Medicare Secondary [id number] N/A [facility] [id number] N/A History of Encounters Visit Date Visit Type Provider 10/22/2014 Office visit Timothy Cruz MD 08/16/2014 Office visit Willy Gordillo NON PROFIT DIRECTOR 07/04/2014 Office visit Timothy Cruz MD 05/07/2014 Office visit Shira Joyce NON PROFIT DIRECTOR 05/06/2014 Voided Timothy Cruz MD 11/21/2013 Nurse visit Timothy Cruz MD 10/30/2013 Office visit Timothy Cruz MD 10/28/2013 Office visit Felisa Arita NON PROFIT DIRECTOR 07/20/2013 Office visit Timothy Cruz MD 05/10/2013 [...] Cruz MD 04/26/2012 Office visit Darby Moss NON PROFIT DIRECTOR 07/12/2011 Hospital Lalitha Bender MD 07/12/2011 Hospital Huang Abdi MD 07/16/2009 Office visit Huang Abdi MD 07/10/2009 Surgery Huang Abdi MD 06/10/2009 Surgery Huang Abdi MD
--- OUTSIDE RECORDS SUMMARY | 2017-11-08 08:42 | XMS REPORT ---
Author Author Phillip Kimbrough Organization [facility] Address [address] [place], [place] [id number] Care Team Providers Care Smalltalk Developer Name Role Phone Phillip Kimbrough PCP Unavailable [...] 03/13/2015 12:00 AM Decadron, Per [address] [facility]# [address]-78 Reviewed 03/13/2015 12:00 AM Depo-Medrol, Per [address] [facility]#[address]-76 Reviewed 03/28/2015 12:00 AM SELF-MGMT EDUC & TRAIN 1 PT Reviewed 03/28/2015 12:00 AM Screening, Colonoscopy,Colorectal Reviewed 03/31/2015 12:00 AM ELECTROCARDIOGRAM COMPLETE Reviewed 03/31/2015 12:00 AM CHEST X-RAY 2VW FRONTAL&LATL Reviewed 05/06/2015 12:00 AM Decadron, Per [address] [facility]# [address]-72 Reviewed 05/06/2015 12:00 AM Depo-Medrol 40mg Reviewed 05/06/2015 12:00 AM PROTHROMBIN TIME Reviewed 08/04/2015 12:00 AM Decadron, Per [address] [facility]# [address]-66 Reviewed 08/04/2015 12:00 AM Depo-Medrol, Per [address] [facility]#[address]-06 Reviewed 08/21/2015 12:00 AM MRI LOWER EXTREMITY W/O DYE Returned 10/28/2015 12:00 AM Toradol [address] [facility]#8627-0048-33 Reviewed 10/28/2015 12:00 AM INFLUENZA VAC 4 VALENT PRSRV FREE 3 YRS PLUS IM Reviewed 05/04/2012 12:00 AM US EXAM OF HEAD AND NECK Reviewed 09/22/2012 12:00 AM REMOVE IMPACTED EAR WAX UNI Reviewed 11/06/2012 12:00 AM Flu Injection [address] Years [address] [facility]# [address]-54 RHC Reviewed 12/04/2012 12:00 AM TD VACCINE [...] 12:00 AM Decadron, Per [address] [facility]# [address]-34 Reviewed 05/07/2014 12:00 AM Depo-Medrol, Per [address] [facility]#1037-7761-21 Reviewed 05/07/2014 12:00 AM REMOVE IMPACTED EAR WAX UNI Reviewed 07/04/2014 12:00 AM Decadron [address] [facility]# [address]-95 Reviewed 07/04/2014 12:00 AM Depo-Medrol [address] [facility]#[address]-35 Reviewed Results Summary Data and Description Results [...] CVX Influenza 11/06/2012 sanofi pasteur PMC Fluzone [id number] Intramuscular Left Deltoid 11/06/2012 08/23/2011 141 Td 12/04/2012 sanofi pasteur PMC TENIVAC [id number] Intramuscular Left Deltoid 12/04/2012 03/16/2011 113 Tdap 10/28/2013 sanofi pasteur PMC ADACEL [id number] Intramuscular Right Upper Arm 10/28/2013 07/21/2012 115 X 11/21/2013 Xcedh-Geohor-Zvdxoqt-Prashefali WAL Prevnar 13 [id number] Intramuscular Left Deltoid 11/22/2013 2012 33 Influenza [...] Policy Group Number Start Date [facility] [id number] N/A Medicare Part A Medicare Part A [id number] N/A Medicare Part B Medicare Secondary [id number] N/A Medicare Part B Medicare Of [place] [id number] N/A Medicare Part A Medicare - Lab/Xray [id number] N/A BCBS [facility] [id number] N/A History of Encounters Visit Date Visit Type Provider 11/22/2015 Office visit Phillip Kimbrough PA-C 10/28/2015 Office visit Shira Joyce FILBERT GROWER 08/21/2015 Office visit Timothy Cruz MD 08/18/2015 [facility] Isabel Townsend MD 08/16/2015 Office visit Phillip Kimbrough PA-C 08/04/2015 Office visit Timothy Cruz MD 05/06/2015 Office visit Shira Joyce FILBERT GROWER 04/21/2015 [facility] Stevan Frey DO 04/18/2015 Office visit Phillip Kimbrough PA-C 03/28/2015 Office visit Stevan Frey DO 03/13/2015 Office visit Timothy Cruz MD 10/22/2014 Office visit Timothy Cruz MD 08/16/2014 Office visit Willy Gordillo FILBERT GROWER 07/04/2014 Office visit Timothy Cruz MD 05/07/2014 Office visit 05/07/2014 Office visit Shira Joyce FILBERT GROWER 05/06/2014 Voided Timothy Cruz MD 11/21/2013 Nurse visit Timothy Cruz MD 10/30/2013 Office visit Timothy Cruz MD 10/28/2013 Office visit Felisa Arita FILBERT GROWER 07/20/2013 Office visit Timothy Cruz MD 05/10/2013 [facility] Lalitha Bender MD 02/27/2013 Office visit [...]
--- OUTSIDE RECORDS SUMMARY | 2017-11-08 08:43 | XMS REPORT ---
Author Author Timothy Cruz [facility] Address [address] [place], [place] [phone] Care Team Providers Care Healthcare Architect Name Role Phone Timothy Cruz PCP Unavailable [...] (15 mg) by oral route once daily Name Start Date Expiration [...] HC BMI BSA BMI Percentile O2 Sat(%) 01/06/2016 8:35:00 AM 116 mmHg 72 mmHg [...] 1 Mg [facility]# [address]-40 Reviewed 03/13/2015 12:00 AM Depo-Medrol, Per 80 Mg [facility]#[address]-85 Reviewed 03/28/2015 12:00 AM SELF-MGMT EDUC & TRAIN 1 PT Reviewed 03/28/2015 12:00 AM Screening, Colonoscopy,Colorectal Reviewed 03/31/2015 12:00 AM ELECTROCARDIOGRAM COMPLETE Reviewed 03/31/2015 12:00 AM CHEST X-RAY 2VW FRONTAL&LATL Reviewed 05/06/2015 12:00 AM Decadron, Per 1 Mg [facility]# [address]-59 Reviewed 05/06/2015 12:00 AM Depo-Medrol 40mg Reviewed 05/06/2015 12:00 AM PROTHROMBIN TIME Reviewed 08/04/2015 12:00 AM Decadron, Per 1 Mg [facility]# [address]-15 Reviewed 08/04/2015 12:00 AM Depo-Medrol, Per 80 Mg [facility]#[address]-94 Reviewed 08/21/2015 12:00 AM MRI LOWER EXTREMITY W/O DYE Returned 10/28/2015 12:00 AM Toradol 60 Mg [facility]#7530-0648-62 Reviewed 10/28/2015 12:00 AM INFLUENZA VAC 4 VALENT PRSRV FREE 3 YRS PLUS IM Reviewed 05/04/2012 12:00 AM US EXAM OF HEAD AND NECK Reviewed 09/22/2012 12:00 AM REMOVE IMPACTED EAR WAX UNI Reviewed 11/06/2012 12:00 AM Flu Injection 3 Years And Above [facility]# [address]-59 RHC Reviewed 12/04/2012 12:00 AM TD VACCINE [...] 1 Mg [facility]# [address]-89 Reviewed 05/07/2014 12:00 AM Depo-Medrol, Per 80 Mg [facility]#5544-3700-14 Reviewed 05/07/2014 12:00 AM REMOVE IMPACTED EAR WAX UNI Reviewed 07/04/2014 12:00 AM Decadron 8 mg [facility]# [address]-36 Reviewed 07/04/2014 12:00 AM Depo-Medrol 80 mg [facility]#[address]-29 Reviewed Results Summary Data and Description Results [...] 01/05/2016 7:05 AM PROTIME 20.10 secsINR 1.8 History Of Immunizations Name Date Admin Mfg Name Mf Code Trade Name Lot# Route Inj Vis Given Vis Pub CVX Influenza 11/06/2012 sanofi pasteur PMC Fluzone [id number] Intramuscular Left Deltoid 11/06/2012 08/23/2011 141 Td 12/04/2012 sanofi pasteur PMC TENIVAC [id number] Intramuscular Left Deltoid 12/04/2012 03/16/2011 113 Tdap 10/28/2013 sanofi pasteur PMC ADACEL [id number] Intramuscular Right Upper Arm 10/28/2013 07/21/2012 115 X 11/21/2013 [facility] Prevnar 13 [id number] Intramuscular Left Deltoid 11/22/2013 2012 33 Influenza [...] at L4-L5 level Jan 06 2016 8:39AM Payers Insurance Name Company Name Plan Name Plan Number Policy Number Policy Group Number Start Date [facility] [id number] N/A Medicare Part A Medicare Part A [id number] N/A Medicare Part B Medicare Secondary [id number] N/A Medicare Part B Medicare Of [place] [id number] N/A Medicare Part A Medicare - Lab/Xray [id number] N/A [facility] [id number] N/A History of Encounters Visit Date Visit Type Provider 01/06/2016 Office visit Timothy Cruz MD 11/28/2015 Office visit Araseli Ochoa PROJECT CONTROLS SPECIALIST 11/22/2015 Office visit Phillip Kimbrough PA-C 10/28/2015 Office visit Shira Joyce PROJECT CONTROLS SPECIALIST 08/21/2015 Office visit Timothy Cruz MD 08/18/2015 Hospital Isabel Townsend MD 08/18/2015 [facility] Lalitha Bender MD 08/16/2015 Office visit Phillip Kimbrough PA-C 08/04/2015 Office visit Timothy Cruz MD 05/06/2015 Office visit Shira Joyce PROJECT CONTROLS SPECIALIST 04/21/2015 Hospital Stevan Tk DO 04/18/2015 Office visit Phillip Kimbrough PA-C 03/28/2015 Office visit Stevan Frey DO 03/13/2015 Office visit Timothy Cruz MD 10/22/2014 Office visit Timothy Cruz MD 08/16/2014 Office visit Willy Gordillo PROJECT CONTROLS SPECIALIST 07/04/2014 Office visit Timothy Cruz MD 05/07/2014 Office visit 05/07/2014 Office visit Shira Joyce PROJECT CONTROLS SPECIALIST 05/06/2014 Voided Timothy Cruz MD 11/21/2013 Nurse visit Timothy Cruz MD 10/30/2013 Office visit Timothy Cruz MD 10/28/2013 Office visit Felisa Arita PROJECT CONTROLS SPECIALIST 07/20/2013 Office visit Timothy Cruz MD 05/10/2013 [facility] Lalitha Bender MD 02/27/2013 Office visit Timothy Cruz MD 01/03/2013 Nurse visit Timothy Cruz MD 12/04/2012 Office visit Timothy Cruz MD 12/01/2012 Office visit Timothy Cruz MD 11/06/2012 Office visit Timothy Cruz MD 09/25/2012 Office visit Timothy Cruz MD 09/22/2012 Office visit Phillip Kimbrough PA-C 05/04/2012 Office visit Timothy Cruz MD 04/26/2012 Office visit Darby Moss PROJECT CONTROLS SPECIALIST 07/12/2011 Hospital Lalitha Bender MD 07/12/2011 Hospital Huang Abdi MD 07/16/2009 Office visit Huang Abdi MD 07/10/2009 Surgery Huang Abdi MD 06/10/2009 Surgery Huang Abdi MD
--- OUTSIDE RECORDS SUMMARY | 2017-11-08 08:46 | XMS REPORT ---
Author Author Timothy Cruz [facility] Address [address] [place], [place] [address] Care Team Providers Care Concrete Analyst Name Role Phone Timothy Cruz PCP Unavailable [...] 12:00 AM Decadron, Per 1 Mg [facility]# [address]-98 Reviewed 03/13/2015 12:00 AM Depo-Medrol, Per 80 Mg [facility]#[address]-66 Reviewed 03/28/2015 12:00 AM SELF-MGMT EDUC & TRAIN 1 PT Reviewed 03/28/2015 12:00 AM Screening, Colonoscopy,Colorectal Reviewed 03/31/2015 12:00 AM ELECTROCARDIOGRAM COMPLETE Reviewed 03/31/2015 12:00 AM CHEST X-RAY 2VW FRONTAL&LATL Reviewed 05/06/2015 12:00 AM Decadron, Per 1 Mg [facility]# [address]-98 Reviewed 05/06/2015 12:00 AM Depo-Medrol 40mg Reviewed 05/06/2015 12:00 AM PROTHROMBIN TIME Reviewed 08/04/2015 12:00 AM Decadron, Per 1 Mg [facility]# [address]-50 Reviewed 08/04/2015 12:00 AM Depo-Medrol, Per 80 Mg [facility]#[address]-39 Reviewed 08/21/2015 12:00 AM MRI LOWER EXTREMITY W/O DYE Returned 05/04/2012 12:00 AM US EXAM OF HEAD AND NECK Reviewed 09/22/2012 12:00 AM REMOVE IMPACTED EAR WAX UNI Reviewed 11/06/2012 12:00 AM Flu Injection 3 Years And Above [facility]# [address]-56 RHC Reviewed 12/04/2012 12:00 AM TD VACCINE [...] 12:00 AM Decadron, Per 1 Mg [facility]# [address]-16 Reviewed 05/07/2014 12:00 AM Depo-Medrol, Per 80 Mg [facility]#5982-1746-67 Reviewed 05/07/2014 12:00 AM REMOVE IMPACTED EAR WAX UNI Reviewed 07/04/2014 12:00 AM Decadron 8 mg [facility]# [address]-77 Reviewed 07/04/2014 12:00 AM Depo-Medrol 80 mg [facility]#[address]-99 Reviewed Results Summary Data and Description Results [...] 10/16/2015 7:55 AM PROTIME 16.70 secsINR 1.5 History Of Immunizations Name Date Admin Mfg Name Mfg Code Trade Name Lot# Route Inj Vis Given Vis Pub CVX Influenza 11/06/2012 sanofi pasteur PMC Fluzone [id number] Intramuscular Left Deltoid 11/06/2012 08/23/2011 141 Td 12/04/2012 sanofi pasteur PMC TENIVAC [id number] Intramuscular Left Deltoid 12/04/2012 03/16/2011 113 Tdap 10/28/2013 sanofi pasteur PMC ADACEL [id number] Intramuscular Right Upper Arm 10/28/2013 07/21/2012 115 X 11/21/2013 Mazxt-Rbjyun-GaioenhJamison WAL Prevnar 13 [id number] Intramuscular Left Deltoid 11/22/2013 2012 33 History [...] Policy Number Policy Group Number Start Date [facility] [id number] N/A Medicare Part A Medicare Part A [id number] N/A Medicare Part B Medicare Secondary [id number] N/A Medicare Part B Medicare Of [place] [id number] N/A Medicare Part A Medicare - Lab/Xray [id number] N/A [facility] [id number] N/A History of Encounters Visit Date Visit Type Provider 08/21/2015 Office visit Timothy Cruz MD 08/18/2015 [facility] Isabel Townsend MD 08/16/2015 Office visit Phillip Kimbrough PA-C 08/04/2015 Office visit Timothy Cruz MD 05/06/2015 Office visit Shira Joyce APRN 04/21/2015 [facility] Stevan Frey DO 04/18/2015 Office visit Phillip Kimbrough PA-C 03/28/2015 Office visit Stevan Frey DO 03/13/2015 Office visit Timothy Cruz MD 10/22/2014 Office visit Timothy Cruz MD 08/16/2014 Office visit Willy Gordillo APRN 07/04/2014 Office visit Timothy Cruz MD 05/07/2014 Office visit 05/07/2014 Office visit Shira Joyce APRN 05/06/2014 Voided Timothy Cruz MD 11/21/2013 Nurse visit Timothy Cruz MD 10/30/2013 Office visit Timothy Cruz MD 10/28/2013 Office visit Felisa Arita WEIGHT CHECKER 07/20/2013 Office visit Timothy Cruz MD 05/10/2013 [...] Cruz MD 04/26/2012 Office visit Darby Moss WEIGHT CHECKER 07/12/2011 [facility] Lalitha Bender MD 07/12/2011 Hospital Huang Abdi MD 07/16/2009 Office visit Huang Abdi MD 07/10/2009 Surgery Huang Abdi MD 06/10/2009 Surgery Huang Abdi MD
--- OUTSIDE RECORDS SUMMARY | 2017-11-08 08:49 | XMS REPORT ---
Author Author Timothy Cruz [facility] Address [address] [place], [place] [address] Care Team Providers Care Manager Msw Name Role Phone Timothy Cruz PCP Unavailable [...] HC BMI BSA BMI Percentile O2 Sat(%) 08/04/2015 3:46:00 PM 110 mmHg 62 mmHg [...] 03/13/2015 12:00 AM Decadron, Per 1 Mg [facility]# [address]-55 Reviewed 03/13/2015 12:00 AM Depo-Medrol, Per 80 Mg [facility]#[address]-95 Reviewed 03/28/2015 12:00 AM SELF-MGMT EDUC & TRAIN 1 PT Reviewed 03/28/2015 12:00 AM Screening, Colonoscopy,Colorectal Reviewed 03/31/2015 12:00 AM ELECTROCARDIOGRAM COMPLETE Reviewed 03/31/2015 12:00 AM CHEST X-RAY 2VW FRONTAL&LATL Reviewed 05/06/2015 12:00 AM Decadron, Per 1 Mg [facility]# [address]-79 Reviewed 05/06/2015 12:00 AM Depo-Medrol 40mg Reviewed 05/06/2015 12:00 AM PROTHROMBIN TIME Reviewed 05/04/2012 12:00 AM US EXAM OF HEAD AND NECK Reviewed 09/22/2012 12:00 AM REMOVE IMPACTED EAR WAX UNI Reviewed 11/06/2012 12:00 AM Flu Injection 3 Years And Above [facility]# [address]-58 RHC Reviewed 12/04/2012 12:00 AM TD VACCINE [...] 05/07/2014 12:00 AM Decadron, Per 1 Mg [facility]# [address]-78 Reviewed 05/07/2014 12:00 AM Depo-Medrol, Per 80 Mg [place]#3885-7363-55 Reviewed 05/07/2014 12:00 AM REMOVE IMPACTED EAR WAX UNI Reviewed 07/04/2014 12:00 AM Decadron 8 mg [facility]# [address]-78 Reviewed 07/04/2014 12:00 AM Depo-Medrol 80 mg [facility]#[address]-90 Reviewed Results Summary Data and Description Results [...] CVX Influenza 11/06/2012 sanofi pasteur PMC Fluzone [id number] Intramuscular Left Deltoid 11/06/2012 08/23/2011 141 Td 12/04/2012 sanofi pasteur PMC TENIVAC [id number] Intramuscular Left Deltoid 12/04/2012 03/16/2011 113 Tdap 10/28/2013 sanofi pasteur PMC ADACEL [id number] Intramuscular Right Upper Arm 10/28/2013 07/21/2012 115 X 11/21/2013 Zzgty-Orqlid-WefelbaAzizajohnnajuly [facility] Bigg 13 [id number] Intramuscular Left Deltoid 11/22/2013 2012 33 History [...] 1:35PM Neck pain Aug 04 2015 3:52PM Payers Insurance Name Company Name Plan Name Plan Number Policy Number Policy Group Number Start Date [facility] [id number] N/A Medicare Part A Medicare Part A [id number] N/A Medicare Part B Medicare Secondary [id number] N/A Medicare Part B Medicare Of [place] [id number] N/A Medicare Part A Medicare - Lab/Xray [id number] N/A [facility] [id number] N/A History of Encounters Visit Date Visit Type Provider 08/04/2015 Office visit Timothy Cruz MD 05/06/2015 Office visit Shira Joyce CAMPGROUND CLEANING ATTENDANT 04/21/2015 [facility] Stevan Frey DO 04/18/2015 Office visit Phillip Kimbrough PA-C 03/28/2015 Office visit Stevan Frey DO 03/13/2015 Office visit Timothy Cruz MD 10/22/2014 Office visit Timothy Cruz MD 08/16/2014 Office visit Willy Gordillo CAMPGROUND CLEANING ATTENDANT 07/04/2014 Office visit Timothy Cruz MD 05/07/2014 Office visit 05/07/2014 Office visit Shira Joyce CAMPGROUND CLEANING ATTENDANT 05/06/2014 Voided Timothy Cruz MD 11/21/2013 Nurse visit Timothy Cruz MD 10/30/2013 Office visit Timothy Cruz MD 10/28/2013 Office visit Felisa Arita APRN 07/20/2013 Office visit Timothy Cruz MD 05/10/2013 [facility] Lalitha Bender MD 02/27/2013 Office visit Timothy rCuz MD 01/03/2013 Nurse visit Timothy Cruz MD 12/04/2012 Office visit Timothy Cruz MD 12/01/2012 Office visit Timothy Cruz MD 11/06/2012 Office visit Timothy Cruz MD 09/25/2012 Office visit Timothy Cruz MD 09/22/2012 Office visit Phillip Kimbrough PA-C 05/04/2012 Office visit Timothy Cruz MD 04/26/2012 Office visit Darby Moss APRN 07/12/2011 [facility] Lalitha Bender MD 07/12/2011 Hospital Huang Abdi MD 07/16/2009 Office visit Huang Abdi MD 07/10/2009 Surgery Huang Abdi MD 06/10/2009 Surgery Huang Abdi MD
--- OUTSIDE RECORDS SUMMARY | 2017-11-08 08:50 | XMS REPORT ---
Author Author Timothy Cruz [facility] Address [address] [place], [place] [address] Care Team Providers Care Catalogue And Special Products Manager Name Role Phone Timothy Cruz PCP Unavailable [...] CVX Influenza 11/06/2012 sanofi pasteur PMC Fluzone [id number] Intramuscular Left Deltoid 11/06/2012 08/23/2011 141 Td 12/04/2012 sanofi pasteur PMC TENIVAC [id number] Intramuscular Left Deltoid 12/04/2012 03/16/2011 113 Tdap 10/28/2013 sanofi pasteur PMC ADACEL [id number] Intramuscular Right Upper Arm 10/28/2013 07/21/2012 115 Pneumococcal 11/21/2013 Rbmxh-Wulrqu-Uaseoat-Prashefali [facility] Prevnar 13 [id number] Intramuscular Left Deltoid 11/22/2013 2012 33 History [...] 10:22AM Tick bite Aug 16 2014 2:22PM Payers Insurance Name Company Name Plan Name Plan Number Policy Number Policy Group Number Start Date [facility] [id number] N/A Medicare Part A Medicare Part A [id number] N/A Medicare Part B Medicare Secondary [id number] N/A [facility] [id number] N/A History of Encounters Visit Date Visit Type Provider 08/16/2014 Office visit Willy Gordillo SALES AGENT 07/04/2014 Office visit Timothy Cruz MD 05/07/2014 Office visit Shira Joyce SALES AGENT 05/06/2014 Voided Timothy Cruz MD 11/21/2013 Nurse visit Timothy Cruz MD 10/30/2013 Office visit Timothy Cruz MD 10/28/2013 Office visit Felisa Arita SALES AGENT 07/20/2013 Office visit Timothy Cruz MD 05/10/2013 [facility] Lalitha Bender MD 02/27/2013 Office visit Timothy Cruz MD 01/03/2013 Nurse visit Timothy Cruz MD 12/04/2012 Office visit Timothy Cruz MD 12/01/2012 Office visit Timothy Cruz MD 11/06/2012 Office visit Timothy Cruz MD 09/25/2012 Office visit Timothy Cruz MD 09/22/2012 Office visit Phillip Kimbrough PA-C 05/04/2012 Office visit Timothy Cruz MD 04/26/2012 Office visit Darby Moss APRN 07/12/2011 [facility] Huang Abdi MD 07/12/2011 [facility] Lalitha Bender MD 07/16/2009 Office visit Huang Abdi MD 07/10/2009 Surgery Huang Abdi MD 06/10/2009 Surgery Huang Abdi MD
--- OUTSIDE RECORDS SUMMARY | 2017-11-08 08:52 | XMS REPORT ---
Author Author Osei Mercado Organization [facility] Address [address] [place], [place] [address] Care Team Providers Care Solder Cream Maker Name Role Phone Osei Mercado PCP Timothy [...] HC BMI BSA BMI Percentile O2 Sat(%) 07/05/2017 8:42:00 AM 130 mmHg 80 mmHg [...] 12:00 AM Decadron, Per 1 Mg [facility]# [address]-37 Reviewed 03/13/2015 12:00 AM Depo-Medrol, Per 80 Mg [facility]#[address]-95 Reviewed 03/28/2015 12:00 AM SELF-MGMT EDUC & TRAIN 1 PT Reviewed 03/28/2015 12:00 AM Screening, Colonoscopy,Colorectal Reviewed 03/31/2015 12:00 AM ELECTROCARDIOGRAM COMPLETE Reviewed 03/31/2015 12:00 AM CHEST X-RAY 2VW FRONTAL&LATL Reviewed 05/06/2015 12:00 AM Decadron, Per 1 Mg [facility]# [address]-98 Reviewed 05/06/2015 12:00 AM Depo-Medrol 40mg Reviewed 05/06/2015 12:00 AM PROTHROMBIN TIME Reviewed 08/04/2015 12:00 AM Decadron, Per 1 Mg [facility]# [address]-49 Reviewed 08/04/2015 12:00 AM Depo-Medrol, Per 80 Mg [facility]#[address]-72 Reviewed 08/21/2015 12:00 AM MRI LOWER EXTREMITY W/O DYE Reviewed 10/28/2015 12:00 AM Toradol 60 Mg [facility]#5185-5179-81 Reviewed 10/28/2015 12:00 AM INFLUENZA VAC 4 [...] Flu Injection 3 Years And Above [facility]# [address]-60 RHC Reviewed 12/04/2012 12:00 AM TD VACCINE [...] 12:00 AM Decadron, Per 1 Mg [facility]# [address]-26 Reviewed 05/07/2014 12:00 AM Depo-Medrol, Per 80 Mg [facility]#9618-6243-40 Reviewed 05/07/2014 12:00 AM REMOVE IMPACTED EAR WAX UNI Reviewed 07/04/2014 12:00 AM Decadron 8 mg [facility]# [address]-11 Reviewed 07/04/2014 12:00 AM Depo-Medrol 80 mg [facility]#[address]-68 Reviewed 08/16/2014 12:00 AM REMOVE IMPACTED EAR WAX UNI Reviewed Results Summary Date and Description Results 04/16/2015 6:50 AM PROTIME 20.50 secsINR 1.9 05/06/2015 2:05 PM PROTIME 17.20 secsINR 1.6 History Of Immunizations Name Date Admin Mfg Name Mfg Code Trade Name Lot# Route Inj Vis Given Vis Pub CVX Influenza 11/06/2012 sanofi pasteur PMC FLUZONE [id number] Intramuscular Left Deltoid 11/06/2012 08/23/2011 141 Td 12/04/2012 sanofi pasteur PMC Tenivac [id number] Intramuscular Left Deltoid 12/04/2012 03/16/2011 113 Tdap 10/28/2013 sanofi pasteur PMC ADACEL [id number] Intramuscular Right Upper Arm 10/28/2013 07/21/2012 115 X 11/21/2013 Zqvag-Wgmcva-KkqrftvHudson [facility] Clinicshefali [facility] PREVNAR 13 [id number] Intramuscular Left Deltoid 11/22/2013 2012 33 Influenza 10/28/2015 sanofi pasteur PMC FLUZONE [id number] Intramuscular Right Deltoid 10/28/2015 09/27/2014 141 Pneumococcal 11/01/2016 [employer] MSD PNEUMOVAX 23 [id number] Intramuscular Right Arm 12/02/2016 04/16/2014 33 Influenza [...] Foot drop, right Jul 05 2017 8:45AM Payers Insurance Name Company Name Plan Name Plan Number Policy Number Policy Group Number Start Date [facility] [id number] N/A Medicare Part A Medicare Part A [id number] N/A Medicare Part B Medicare Secondary [id number] N/A Medicare Part B Medicare Of [place] [id number] N/A Medicare Part A Medicare - Lab/Xray [id number] N/A BCBS Bcbs [facility] [id number] N/A History of Encounters Visit Date Visit Type Provider 07/05/2017 Office visit Osei Mercado DO 05/24/2017 [...] 08/21/2015 Office visit Timothy Cruz MD 08/18/2015 [facility] Isabel Townsend MD 08/18/2015 [facility] Lalitha Bender MD 08/16/2015 Office visit Phillip Kimbrough PA-C 08/04/2015 Office visit Timothy Cruz MD 05/06/2015 Office visit Shira Joyce BOAT FUELER 04/21/2015 Hospital Stevan Frey DO 04/18/2015 Office [...]
--- OUTSIDE RECORDS SUMMARY | 2017-11-08 08:52 | XMS REPORT | Continuity of Care Document ---
Author Author [facility] Organization [facility] Address Unknown Phone Unavailable Allergies Active Description Code Type Severity Reaction Onset Reported/Identified Relationship to Patient Clinical Status Yes No Known Drug Allergies [id number] Drug Allergy Unknown N/A 08/03/2011 Medications There is no data. Problems Date Dx Coded Attending Type Code Diagnosis Diagnosed By 08/04/2011 Ot 272.4 HYPERLIPIDEMIA NEC/NOS 08/04/2011 Ot 365.9 GLAUCOMA NOS 08/04/2011 Ot 401.9 HYPERTENSION NOS 08/04/2011 Ot 414.01 CORONARY ATHEROSCLEROSIS OF [place] CORON 08/04/2011 Ot 414.8 CHR ISCHEMIC HRT DIS NEC 08/04/2011 Ot 427.31 ATRIAL FIBRILLATION 08/04/2011 Ot V15.82 HISTORY OF TOBACCO USE 08/04/2011 Ot V58.61 ANTICOAGULANTS,LT,CURRENT USE 08/04/2011 Ot V58.69 OTH MED,LT, CURRENT USE 01/28/2015 KAREEM BOURNE FACC, ANTHONY FACP CCDS Ot 401.9 01/28/2015 KAREEM BOURNE FACC, ANTHONY FACP CCDS Ot 414.00 01/28/2015 KAREEM BOURNE FACC, ANTHONY FACP CCDS Ot 425.4 01/28/2015 KAREEM BOURNE FACC, ALI FACP CCDS Ot 427.31 02/07/2015 KAREEM BOURNE FACC, ANTHONY FACP CCDS Ot E78.4 02/07/2015 KAREEM BOURNE FACC, ALI FACP CCDS Ot I10 02/07/2015 KAREEM BOURNE FACC, ALI FACP CCDS Ot I42.0 02/07/2015 KAREEM BOURNE FACC, ANTHONY FACP CCDS Ot I48.2 02/07/2015 KAREEM BOURNE FACC, ANTHONY FACP CCDS Ot R55 06/07/2016 KAREEM BOURNE FACC, ANTHONY FACP CCDS Ot 401.9 HYPERTENSION NOS 06/07/2016 KAREEM BOURNE FACC, ALI FACP CCDS Ot 414.00 CORON ATHEROSCLER NOS TYPE VESSEL, NATIV 06/07/2016 KAREEM BOURNE FACC, ALI FACP CCDS Ot 425.4 PRIM CARDIOMYOPATHY NEC 06/07/2016 KAREEM BOURNE FACC, ALI FACP CCDS Ot 427.31 ATRIAL FIBRILLATION 06/07/2016 KAREEM BOURNE FACC, ALI FACP CCDS Ot E78.4 OTHER HYPERLIPIDEMIA 06/07/2016 KAREEM BOURNE FACC, ALI FACP CCDS Ot I10 ESSENTIAL (PRIMARY) HYPERTENSION 06/07/2016 KAREEM BOURNE FACC, ALI FACP CCDS Ot I42.0 DILATED CARDIOMYOPATHY 06/07/2016 KAREEM BOURNE FACC, ALI FACP CCDS Ot I48.2 CHRONIC ATRIAL FIBRILLATION 06/07/2016 KAREEM BOURNE FACC, ALI FACP CCDS Ot R55 SYNCOPE AND COLLAPSE 06/07/2016 KAREEM MARTÍNEZC, ALI FACP CCDS Ot I25.10 ATHSCL HEART DISEASE OF [place] CORONARY 06/07/2016 KAREEM BOURNE FACC, ALI FACP CCDS Ot I25.10 ATHSCL HEART DISEASE [place] CORONARY 06/07/2016 KAREEM BOURNE FACC, ALI FACP CCDS Ot I25.10 ATHSCL HEART DISEASE [place] CORONARY 06/07/2016 KAREEM BOURNE FACC, ALI FACP CCDS Ot I25.10 ATHSCL HEART DISEASE OF [place] CORONARY 06/07/2016 KAREEM BOURNE FACC, ALI FACP CCDS Ot I25.10 ATHSCL HEART DISEASE [place] CORONARY 06/09/2016 KAREEM BOURNE FACC, ALI FACP CCDS Ot I10 ESSENTIAL (PRIMARY) HYPERTENSION 06/09/2016 KAREEM BOURNE FACC, ALI FACP CCDS Ot I25.10 ATHSCL HEART DISEASE OF [place] CORONARY 06/09/2016 KAREEM BOURNE FACC, ALI FACP CCDS Ot I48.2 CHRONIC ATRIAL FIBRILLATION 06/09/2016 KAREEM BOURNE FACC, ALI FACP CCDS Ot I65.23 OCCLUSION AND STENOSIS OF [place] 10/07/2016 KAREEM BOURNE FACC, ALI FACP CCDS Ot I10 ESSENTIAL (PRIMARY) HYPERTENSION 10/07/2016 KAREEM BOURNE FACC, ALI FACP CCDS Ot I25.10 ATHSCL HEART DISEASE [place] CORONARY 10/07/2016 KAREEM BOURNE FACC, ALI FACP CCDS Ot I42.0 DILATED CARDIOMYOPATHY 10/07/2016 KAREEM BOURNE FACC, ALI FACP CCDS Ot I48.2 CHRONIC ATRIAL FIBRILLATION 10/07/2016 KAREEM BOURNE FACC, ALI FACP CCDS Ot I65.23 OCCLUSION AND STENOSIS OF [place] 10/21/2016 KAREEM BOURNE FACC, ALI FACP CCDS Ot I10 ESSENTIAL (PRIMARY) HYPERTENSION 10/21/2016 KAREEM BOURNE FACC, ALI FACP CCDS Ot I25.10 ATHSCL HEART DISEASE [place] CORONARY 10/21/2016 KAREEM BOURNE FACC, ALI FACP CCDS Ot I42.0 DILATED CARDIOMYOPATHY 10/21/2016 KAREEM BOURNE FACC, ALI FACP CCDS Ot I48.2 CHRONIC ATRIAL FIBRILLATION 10/21/2016 KAREEM BOURNE FACC, ALI FACP CCDS Ot I65.23 OCCLUSION AND STENOSIS OF [place] 10/21/2016 KAREEM BOURNE FACC, ALI FACP CCDS Ot I10 ESSENTIAL (PRIMARY) HYPERTENSION 10/21/2016 KAREEM BOURNE FACC, ALI FACP CCDS Ot I25.10 ATHSCL HEART DISEASE [place] CORONARY 10/21/2016 KAREEM BOURNE FACC, ALI FACP CCDS Ot I42.0 DILATED CARDIOMYOPATHY 10/21/2016 KAREEM BOURNE FACC, ALI FACP CCDS Ot I48.2 CHRONIC ATRIAL FIBRILLATION 10/21/2016 KAREEM BOURNE FACC, ALI FACP CCDS Ot I65.23 OCCLUSION AND STENOSIS OF [place] 11/01/2016 KAREEM BOURNE FACC, ALI FACP CCDS Ot I10 ESSENTIAL (PRIMARY) HYPERTENSION 11/01/2016 KAREEM BOURNE FACC, ALI FACP CCDS Ot I25.10 ATHSCL HEART DISEASE [place] CORONARY 11/01/2016 KAREEM BOURNE FACC, ALI FACP CCDS Ot I48.2 CHRONIC ATRIAL FIBRILLATION 11/01/2016 KAREEM MARTÍNEZC, ALI FACP CCDS Ot I65.23 OCCLUSION AND STENOSIS OF [place] 11/03/2017 Rc WEBB MD Ot I48.2 CHRONIC ATRIAL FIBRILLATION 11/03/2017 Rc WEBB MD Ot R42 DIZZINESS AND GIDDINESS Procedures There is no data. Results There is no data. Encounters ACCT No. Visit Date/Time Discharge Status Pt. Type Provider Facility Loc./Unit Complaint [id number] 11/03/2017 09:22:53 11/03/2017 23:59:59 [facility] Outpatient Osei Mercado [id number] 10/20/2017 16:27:42 10/20/2017 23:59:59 [facility] Outpatient Napoleon Lalitha Aguirre [id number] 09/01/2017 09:36:53 09/01/2017 23:59:59 CLS Outpatient Jess Osei [id number] 08/02/2017 09:26:26 08/02/2017 23:59:59 CLS Outpatient Jess Osei [id number] 07/27/2017 09:16:44 07/27/2017 23:59:59 CLS Outpatient Shira Joyce [id number] 07/05/2017 09:34:27 07/05/2017 23:59:59 CLS Outpatient Jess Osei [id number] 05/24/2017 09:55:58 05/24/2017 23:59:59 CLS Outpatient Jess Osei [id number] 05/17/2017 10:29:02 05/17/2017 23:59:59 CLS Outpatient Timothy Cruz [id number] 09/23/2016 14:38:05 09/23/2016 23:59:59 CLS Outpatient Timothy Cruz [id number] 08/04/2016 09:19:33 08/04/2016 23:59:59 [id number]2016 14:51:41 06/28/2016 23:59:59 CLS Outpatient Timothy Cruz [id number] 03/26/2016 09:12:18 03/26/2016 23:59:59 [facility] [id number] 01/06/2016 09:24:11 01/06/2016 23:59:59 [id number] 12/[facility]2015 11:56:09 12/09/2015 23:59:59 CLS Outpatient NapoleonLalitha [id number] 11/28/2015 19:12:57 11/28/2015 23:59:59 CLS Outpatient Araseli Ochoa [id number] 11/22/2015 09:52:02 11/22/2015 23:59:59 CLS Outpatient Phillip Kimbrough [id number] 10/28/2015 10:08:42 10/28/2015 23:59:59 CLS Outpatient Shira Joyce [id number] 08/22/2015 00:36:11 08/22/2015 23:59:59 CLS Outpatient Isabel Townsend [id number] 08/21/2015 11:15:53 08/21/2015 23:59:59 CLS Outpatient Timothy Cruz [id number] 08/16/2015 14:50:55 08/16/2015 23:59:59 CLS Outpatient Phillip Kimbrough [id number] 05/06/2015 14:25:33 05/06/2015 23:59:59 CLS Outpatient Shira Joyce [id number] 04/21/2015 15:31:38 04/21/2015 23:59:59 CLS Outpatient Stevan Frey [id number] 04/18/2015 19:19:03 04/18/2015 23:59:59 CLS Outpatient Phillip Kimbrough [id number] 03/28/2015 12:20:31 03/28/2015 23:59:59 CLS Outpatient Stevan Frey [id number] 03/13/2015 09:02:41 03/13/2015 23:59:59 CLS Outpatient DuyenTimothy harden [id number] 10/22/2014 14:39:21 10/22/2014 23:59:59 CLS Outpatient Duyenmorenamarianne Timothy [id number] 09/30/2014 22:04:23 09/30/2014 23:59:59 CLS Outpatient Willy Gordillo [id number] 09/30/2014 21:27:48 09/30/2014 23:59:59 CLS Outpatient Duyenmorenamarianne Timothy [id number] 11/21/2013 12:27:33 11/21/2013 23:59:59 CLS Outpatient DuyenTimothy harden [id number] 10/30/2013 15:07:34 10/30/2013 23:59:59 CLS Outpatient DuyenTimothy harden [id number] 10/28/2013 15:25:13 10/28/2013 23:59:59 CLS Outpatient Felisa Arita [id number] 07/20/2013 11:20:44 07/20/2013 23:59:59 CLS Outpatient DuyenTimothy harden [id number] 05/23/2013 00:23:02 05/23/2013 23:59:59 CLS Outpatient Lalitha Bender [id number] 02/27/2013 09:40:17 02/27/2013 23:59:59 CLS Outpatient DuyenTimothy harden [id number] 10/17/2017 13:30:00 10/17/2017 23:59:59 CLS Outpatient Rc WEBB MD [facility] CARD DIZZINESS,CHRONIC A-FIB [id number] 09/20/2017 12:25:00 09/20/2017 23:59:59 CLS Outpatient TRACEY BOURNE, Rc CORDERO [facility] CARD DIZZINESS,CHRONIC A-FIB [id number] 10/01/2016 11:20:00 10/01/2016 23:59:59 CLS Outpatient KAREEM BOURNE FACC, ALI FACP CCDS [facility] CHRONIC AFIB I48.2,HTN I10 [id number] 06/30/2016 12:00:00 06/30/2016 23:59:59 CLS Preadmit KAREEM BOURNE FACC, ALI FACP CCDS [facility] CARD I42.0 CARDIOM YOPATHY, NONISCHEMIC [id number] 06/08/2016 10:59:00 06/08/2016 23:59:59 CLS Outpatient KAREEM BOURNE FACC, ALI FACP CCDS [facility] CARD CAD,CHRONIC ATRIAL FIBRILATION [id number] 01/28/2015 07:14:00 01/28/2015 23:59:59 CLS Outpatient KAREEM BOURNE FACC, ALI FACP CCDS [facility] CARD A-FIB, SYNCOPE [id number] 11/13/2013 12:43:00 11/13/2013 23:59:59 CLS Outpatient KAREEM BOURNE FACC, ALI FACP CCDS [facility] CARD AFIB HLE CAD HTN [id number] 11/08/2017 10:00:00 PEN Preadmit KAREEM BOURNE FACC, ALI FACP CCDS [facility] CATH IMPLANTABLE LOOP RECORDER [id number] 08/03/2011 05:47:00 Document Registration
--- NOTE | 2017-11-08 09:22 | Cardiac Procedure Note-CS/ASA ---
Pre-Procedure Note Pre-Op Procedure Note H&P Reviewed The H&P was reviewed, patient examined and no changes noted. Date H&P Reviewed: Nov 08, 2017 Time H&P Reviewed: 08:55 Conscious Sedation Pre-Proced Time Reviewed: 08:55 ASA Class: 3 Airway Mallampati Classification: (kenaitze appropriate class) I. II. III, IV Lungs Heart ASA score ASA 1: a normal healthy patient ASA 2: a patient with a mild systemic disease (mid diabetes, controlled hypertension, obesity ASA 3: a patient with a severe systemic disease that limits activity (angina , COPD, prior Myocardial infarction) ASA 4: a patient with an incapacitating disease that is a constant threat to life (CHF, renal failure) ASA 5: a moribund patient not expected to survive 24 hrs. (ruptured aneurysm) ASA 6: a declared brain patient whose organs are being harvested. For emergent operations, add the letter E after the classification Grade 2 Sedation Plan: Analgesia, Amnesia, Plan communicated to team members, Discussed options with patient/fam, Discussed risks with patient/fam Note The patient is an appropriate candidate to undergo the planned procedure, sedation, and anesthesia. The patient immediately re-assessed prior to indication. ANTHONY SERNA MD FACP FAC CCDS Nov 08, 2017 09:22
[2017-11-08 09:44] VITALS: BP 128/80
--- NOTE | 2017-11-08 14:20 | OPERATIVE REPORT ---
DATE OF SERVICE: 11/08/2017 PROCEDURE: Implantable loop recorder implantation. PREOPERATIVE DIAGNOSIS: Syncope. POSTOPERATIVE DIAGNOSIS: Syncope. INDICATION: The patient is a 72-year-old man with episodes of near syncope that are infrequent. Implantable loop recorder implantation was carried out today to evaluate for rhythm disorder as the basis of his symptoms. Informed consent was obtained. DESCRIPTION OF PROCEDURE: [facility]. The left prepectoral area was prepared and draped in usual sterile fashion. A 1% lidocaine local anesthesia. The tools provided with the [employer] LINQ device were used to make a subcutaneous pocket anterior to the fourth intercostal space into which the device was placed and the edges were closed using Dermabond and Steri-Strips. He tolerated the procedure well. The serial number of the device is [id number]. Job ID: [id number] DocumentID: [id number] Dictated Date: 11/08/2017 09:25:39 Lab Tech Date: 11/08/2017 14:19:34 Dictated By: ANTHONY SERNA MD, MA, FACP, FACC,
== END 2017-11-08 09:45 | disposition home or self-care (01) ==
LOC: CATH 08:14
PROVIDERS: ATTEND Internal Medicine Cardiovascular Disease
DX: R55 Syncope and collapse (principal); I25.10 Atherosclerotic heart disease of native coronary artery without angina pectoris; I42.9 Cardiomyopathy, unspecified; I48.1 Persistent atrial fibrillation; I10 Essential (primary) hypertension; E78.5 Hyperlipidemia, unspecified; E66.9 Obesity, unspecified; Z68.31 Body mass index [BMI] 31.0-31.9, adult; Z96.651 Presence of right artificial knee joint; Z79.01 Long term (current) use of anticoagulants; Z79.82 Long term (current) use of aspirin; Z87.891 Personal history of nicotine dependence
CPT/HCPCS: 33282

== ENCOUNTER → 2018-06-09 | Outpatient (CLI) | payer MEDICARE ==
--- NOTE | 2018-06-09 12:36 | Diagnostic Imaging Report ---
Indication: Right thyroid mass. Sonographic guidance was provided for Dr. Motley during a right thyroid mass FNA. Three passes were made. Impression: Sonographic guidance for Dr. Motley for right thyroid FNA. Dictated by: Dictated on workstation # [id number]
== END ==
LOC: RAD 10:05
PROVIDERS: ATTEND Otolaryngology Otolaryngology/Facial Plastic Surgery
DX: E07.89 Other specified disorders of thyroid (principal)
CPT/HCPCS: 76942

== ENCOUNTER → 2018-10-20 | Outpatient (CLI) | payer MEDICARE | LOC: CARD 12:36 | PROVIDERS: ATTEND Internal Medicine Cardiovascular Disease | DX: I51.7 Cardiomegaly (principal); I35.1 Nonrheumatic aortic (valve) insufficiency; I25.10 Atherosclerotic heart disease of native coronary artery without angina pectoris; I42.8 Other cardiomyopathies; I48.1 Persistent atrial fibrillation | CPT/HCPCS: 93306 ==